=== PATIENT | female | born 1960 | race Caucasian/White ===

== ENCOUNTER 2017-10-30 13:45 | Outpatient (RCR) | payer BC ==
--- NOTE | 2017-10-06 15:16 | PT PLAN OF CARE ---
Physician: Shiela Mchugh NP Patient is being seen: 2x/Week Therapist: Adeline Maria, PT, DPT, CLT Medical Diagnosis: Groin pain, Pelvic and perineal pain, Right-sided piriformis syndrome Treatment Diagnosis: Obturator internus syndrome Date of Onset: 01/19/17 Date of Initial Evaluation: 06/20/17 Date patient was last seen: 10/06/17 Number of treatments: 16 Number of cancellations/No shows: 4 INTERVENTIONS: Manual Therapy/STM/MET Strengthening/condition Ice/Heat Range of Motion Spinal Stabilization Ultrasound Stretching Iontophoresis Neuromuscular Re-ed Closed Chain Program Electrical Stim Posture/Body mechanics Gait Trg/Balance Trg Biofeedback Home Exercise Program Mech./Manual Traction Therapeutic Activities Pelvic Floor GOALS: In 3 weeks pt will be able to perform sit<>stand transfers without onset of pain for improved functional ability to perform ADL's. MET In 6 weeks pt will improve MMT strength to equal that of the contralateral limb without onset of pain for improved ability to perform ADL's. In Progress In 6 weeks pt will have full ROM and be able to perform daily activities and transfers without onset of pain. MET PATIENT'S GOAL: Decrease pain, increase function. Status of Patient's Goals: 2/3 MET 1/3 In Progress Patient Compliance: Moderate Prognosis: Good Reasons for continuing therapy: Pt shows improved hip ROM without any onset of pain, however muscular recruitment and activation remains decreased with frequent substitutions with activation of gluteus medius, and pelvic floor musculature. Pain remains unstable with pt frequently missing visits resulting in delayed treatment. However following each treatment pt reports decreased pain and improved mobility. ROM: B Hip ROM full without pain Strength: LE MMT: Hip: Flexion: L 4+/5, R 4/5 with pain, ext: B 4+/5, add: B 4/ 5 with pain at end range, abd B 4/5, ER: L 5/5, R 3+/5 with pain, IR: B 5/5 Palpation: Pt is tender to palpation of obturator internus, piriformis, and quadratus femoris. If you have any questions or concerns, please feel free to contact me at . Thank you, Adeline Maria PT, DPT, CLT [facility]
[~2017-10-30 13:45] MED LIST: ACAM333T6 PO; DILCD120 PO; ESC10 PO; LOR75 PO; NALT380S4 IM; PER PO
--- NOTE | 2017-11-23 13:45 | PT PLAN OF CARE ---
Physician: Shiela Mchugh NP Patient is being seen: 2x/Week Therapist: Adeline Maria, PT, DPT, CLT Medical Diagnosis: Groin pain, Pelvic and perineal pain, Right-sided piriformis syndrome Treatment Diagnosis: Obturator internus syndrome Date of Onset: 01/19/17 Date of Initial Evaluation: 06/20/17 Date patient was last seen: 10/30/17 Number of treatments: 20 Number of cancellations/No shows: 12 INTERVENTIONS: Manual Therapy/STM/MET Strengthening/condition Ice/Heat Range of Motion Spinal Stabilization Ultrasound Stretching Iontophoresis Neuromuscular Re-ed Closed Chain Program Electrical Stim Posture/Body mechanics Gait Trg/Balance Trg Biofeedback Home Exercise Program Mech./Manual Traction Therapeutic Activities Pelvic Floor GOALS: In 3 weeks pt will be able to perform sit<>stand transfers without onset of pain for improved functional ability to perform ADL's. MET In 6 weeks pt will improve MMT strength to equal that of the contralateral limb without onset of pain for improved ability to perform ADL's. In Progress In 6 weeks pt will have full ROM and be able to perform daily activities and transfers without onset of pain. MET PATIENT'S GOAL: Decrease pain, increase function. Status of Patient's Goals: 2/3 MET 1/3 In Progress Patient Compliance: Poor Prognosis: Good Reasons for discharge from therapy: Ninfa is to discharge from physical therapy at this time secondary to poor pt compliance, poor pt response to PT intervention, and recent PT referral back to physician for imaging and likely specialist intervention. At the time of discharge pt had very slow progress with PT intervention with inconsistently reduced pain. Upon discharge pt had met 2/3 functional goals, while pain levels remained moderate at 5/10 typically. ROM: B Hip ROM full without pain Strength: LE MMT: Hip: Flexion: L 4+/5, R 4/5 with pain, ext: B 4+/5, add: B 4/ 5 with pain at end range, abd B 4/5, ER: L 5/5, R 3+/5 with pain, IR: B 5/5 Palpation: Pt is tender to palpation of obturator internus, piriformis, and quadratus femoris. If you have any questions or concerns, please feel free to contact me at . Thank you, Adeline Maria, PT, DPT, CLT [facility]
[2017-12-21] MEDS ORDERED: MELA1TAB38 PO (11:21)
[2017-12-21] MEDS ORDERED: FLUT16SP19 NS (11:21)
[2017-12-21] MEDS ORDERED: CYAN250T15 PO (11:21)
[2017-12-21] MEDS ORDERED: VENL75CA58 PO (11:21)
[2017-12-21] MEDS ORDERED: ASCO-182 PO (11:21)
[2017-12-21] MEDS ORDERED: ACET-1966 PO (11:21)
[2017-12-21] MEDS ORDERED: BUPR-124 PO (11:21)
[2017-12-21] MEDS ORDERED: GABA-549 PO (11:21)
[2017-12-21] MEDS ORDERED: COLC1TAB5 PO (11:21)
[2017-12-21] MEDS ORDERED: BUSP15TA69 PO (11:21)
[2017-12-21] MEDS ORDERED: FEBU80TA3 PO (11:21)
[2017-12-21] MEDS ORDERED: MULT1CAP59 PO (11:21)
[2017-12-21] MEDS ORDERED: CHOL10005 PO (11:21)
[2017-12-25] MEDS ORDERED: DOCU-416 PO (12:04)
[2017-12-25] MEDS ORDERED: HYDR-4309 PO (12:04)
[2018-01-01] MEDS ORDERED: PHEN200T32 PO (18:08)
[2018-01-01] MEDS ORDERED: SULF-198 PO (18:09)
[2018-01-01] MEDS ORDERED: OXYB10TA21 PO (18:09)
[2018-01-01] MEDS ORDERED: TAMS0.4C25 PO (18:11)
== END 2018-01-03 ==
LOC: PT 13:45
PROVIDERS: ATTEND Nurse Practitioner Family
DX: R10.2 Pelvic and perineal pain (principal); M54.31 Sciatica, right side

== ENCOUNTER → 2017-11-24 | Outpatient (CLI) | payer BC ==
--- NOTE | 2017-11-24 14:43 | RADIOLOGY IMAGING REPORT ---
[place] [facility] [place] Ninfa Escalera : 1960 MR: [id number] V: [id number] EXAM DATE: ORDERING PHYSICIAN: NUNU ANDREW TECHNOLOGIST: Location: [facility] Patient: Ninfa Escalera : 1960 Visit/Account:[id number] Date of Sevice: 11/24/2017 ADDENDUM #1 #1 of the impression pertains to the right hip, not the left hip. Report Dictated By: Grabiel Davis MD at 11/27/2017 2:02 PM Report E-Signed By: Grabiel Davis MD at 11/27/2017 2:03 PM ORIGINAL REPORT MRI right hip without contrast HISTORY: Hip pain COMPARISON: None TECHNIQUE: Multiplanar/multisequence was obtained through the right hip without contrast. CONTRAST: None FINDINGS: Right hip: Joint space: Mild anterior-superior joint space narrowing with thinning of the articular cartilage.. Bone marrow: Mild subchondral cystic change within the anterior acetabulum. Labrum: Mild irregularity of the anterior-superior labral quadrant without paralabral cyst. Effusion: None Other findings: None significant Limited images of the right hip: Joint space: Mild superior joint space narrowing. Bone marrow: Normal Effusion: None Other findings: None significant Bony pelvis: Normal Pubic symphysis and SI joints: Normal Myotendinous structures: Small amount of fluid within the left greater trochanteric bursa. Trace amou nt of fluid within the right greater trochanteric bursa. Chronic appearing bilateral hamstring tendin osis with partial tearing Soft tissues: Normal Intrapelvic and lower abdominal findings: None significant Visualized spine: Normal Other findings: None significant IMPRESSION: 1. Left hip shows mild anterior-superior joint space narrowing with thinning of the articular cartila ge. Degeneration versus nondisplaced tearing of the anterior-superior labral quadrant without paralab ral cyst. Mild subchondral cystic change within the anterior acetabulum. 2. Bilateral greater trochanteric bursitis, left greater than right. 3. Probable chronic bilateral hamstring tendinosis with partial tearing. Report Dictated By: Grabiel Davis MD at 11/24/2017 2:30 PM Report E-Signed By: Grabiel Davis MD at 11/24/2017 2:39 PM WSN:[id number]
== END ==
LOC: MRI 10:26
PROVIDERS: ATTEND Nurse Practitioner Family
DX: M25.851 Other specified joint disorders, right hip (principal); M70.72 Other bursitis of hip, left hip; M70.71 Other bursitis of hip, right hip
CPT/HCPCS: 72195

== ENCOUNTER → 2017-12-20 | Outpatient (CLI) | payer BC ==
[~2017-12-20] MED LIST changes: +ACET-1966 PO; +ASCO-182 PO; +BUPR-124 PO; +BUSP15TA69 PO; +CHOL10005 PO; +COLC1TAB5 PO; +CYAN250T15 PO; +FEBU80TA3 PO; +FLUT16SP19 NS; +GABA-549 PO; +IOPAMIDOL 76% 50 ML INFUS BTL 50 ML ONE; +IOPAMIDOL 76% 75 ML INFUS BTL 75 ML ONE; +MELA1TAB38 PO; +MULT1CAP59 PO; +NS 0.9% 20 ML SDV 60 ML ONE; +VENL75CA58 PO
[2017-12-20 12:33] LABS: PLATELET COUNT, AUTOMATED 190 K/uL (150-450)
--- NOTE | 2017-12-20 16:22 | RADIOLOGY IMAGING REPORT ---
FACILITY: [facility] PATIENT NAME: Ninfa Escalera : 1960 MR: [id number] V: [id number] EXAM DATE: ORDERING PHYSICIAN: TIERNEY HOWELL TECHNOLOGIST: Location: [facility] [place] Patient: Ninfa Escalera : 1960 Visit/Account:[id number] Date of Sevice: 12/20/2017 ABDOMEN/PELVIS W/WO CONTRAST HISTORY: Right hydronephrosis, ureteral obstruction, stones TECHNIQUE: Axial images acquired through the abdomen/pelvis both with and without IV contrast.. Yolis nal and sagittal reformatting also performed. Dose Lowering Technique One of the following dose optimization techniques was utilized in the performance of this exam: Autom ated exposure control; adjustment of the mA and/or kV according to the patient's size; or use of an i terative reconstruction technique. Specific details can be referenced in the facility's radiology C T exam operational policy. CONTRAST: 125 mL Isovue-[id number] COMPARISON: Ultrasound abdomen December 10, 2007 FINDINGS: Visualized lung bases: There is a 3 mm noncalcified subpleural nodule posterior lateral aspect of th e left lower lobe best seen on image 28 of series 6. There is a small amount of scarring versus atel ectasis in the inferior lingula. Hepatobiliary: There is cholelithiasis although no evidence of biliary ductal dilatation. . There is however a tiny calcific density seen at the head of the pancreas which could be within the distal common bile duct or immediately adjacent pancreatic tissue. Spleen: Negative. Adrenals: Negative. Pancreas: There Is a tiny punctate calcification seen in the head the pancreas which could be within the distal common bile duct versus the immediate adjacent pancreatic tissue . Kidneys ureters and bladder: There is a severe right hydronephrosis secondary to a 1.2 x 1.8 x 0.7 cm stone in the proximal right ureter just beyond the right UPJ is mild urothelial enhancement of the p roximal right ureter. No other calculi identified in the right renal collecting system. There is mo derate perinephric stranding on the right. There is also cortical thinning on the right suggesting t his could be a long-standing obstruction. There is a 1 mm punctate nonobstructing calcification upper pole calyx of the left kidney . There are several tiny hypodensities within the left kidney which may represent cysts although are too smal l to characterize. Genitalia: Negative. GI: Negative. Vessels/spaces/nodes: There are minimal vascular calcifications present Bones/soft tissues: There is a gentle S-shaped scoliosis of the thoracolumbar spine. There are mode rate spondylotic changes L5-S1. There is a mild compression fracture of the L1 vertebral body Additional findings: None pertinent. IMPRESSION: There is a severe right hydronephrosis secondary to a 1.2 x 1.8 x 0.7 cm stone in the proximal right ureter just beyond the right UPJ with mild urothelial enhancement of the proximal right ureter sugges ting a possible superimposed urinary tract infection.. Also noted is moderate perinephric stranding on the right There is cortical thinning on the right suggesting this could be of long-standing obstru ction. 1 mm nonobstructing calculus upper pole calyx of the left kidney Mild compression fracture of L1 vertebral body and moderate spondylotic changes L5-S1 Cholelithiasis although no evidence of biliary ductal dilatation. There is a tiny punctate calcifica tion seen at the head of the pancreas which could be within the distal common bile duct or the immedi ately adjacent pancreatic tissue. If patient has signs of biliary obstruction and MRCP may be helpfu l. 3 mm noncalcified nodule lateral aspect the left lower lobe. The Fleischner Society recommendations are as follows For nodules less than 6 mm in a low risk patient (minimal or absent smoking history, n o history of malignancy), no routine followup is recommended. In a high risk patient (smoking or rome gnancy history), optional 12 month followup can be obta sharon. Report Dictated By: Roseline Contreras MD at 12/20/2017 3:28 PM Report E-Signed By: Roseline Contreras MD at 12/20/2017 4:17 PM WSN:[email or web address]
== END ==
LOC: CT 02:31
PROVIDERS: ATTEND Urology
DX: N13.30 Unspecified hydronephrosis (principal); N20.1 Calculus of ureter; N20.0 Calculus of kidney; R91.1 Solitary pulmonary nodule; K80.20 Calculus of gallbladder without cholecystitis without obstruction; K86.89 Other specified diseases of pancreas
CPT/HCPCS: 36415; 74178; 85025; J7050; Q9967; 82040; 82247; 82310; 82374; 82435; 82565; 82947; 84075; 84132; 84155; 84295; 84450; 84460; 84520

== ENCOUNTER → 2017-12-25 | Day surgery (SDC) | payer BC ==
--- NOTE | 2017-12-22 16:36 | HISTORY AND PHYSICAL ---
DATE OF ADMISSION: December 25, 2017 CHIEF COMPLAINT Right ureteral calculi. HISTORY OF PRESENT ILLNESS Patient is a 57-year-old white female with a year history of right hip and lower quadrant pain which has been radiating to her buttocks, who was being evaluated by [facility] for disk disease. An MRI was performed which showed a significant amount of right hydroureteronephrosis down to the ureter with a 15 x 9 mm lesion. When seen in the Urology Clinic on the 19 of December, she was without new complaints. She denied prior kidney stones, flank pain or renal colic or gross hematuria. Her creatinine was 1.2 and her urinalysis was normal. A CT urogram was performed which revealed a 1.8 x 0.8 x 1.1 cm calcification in the right proximal ureter with significant hydroureteronephrosis down to the stone. She had delayed excretion of contrast on her delayed images. The renal cortex on the right side appeared moderately thin compared to the left. The films were shown to the patient and discussed. She is now being brought to the operating room for planned stent placement for decompression of her system, followed by a ureteroscopy and extracorporeal shock wave lithotripsy of her stone. She understands that if I am unable to decompress her system from below she may require percutaneous nephrostomy placement to require decompression. PAST MEDICAL HISTORY * Arthritis. * Gout. * Depression with anxiety. * Chronic low back pain. * History of ethanol abuse. PAST SURGICAL HISTORY * . * Right shoulder and arm surgery, 2006. ALLERGIES No known drug allergies. CURRENT MEDICATIONS * Uloric. * Effexor. * BuSpar. * Wellbutrin. * Gabapentin. * Probenecid with colchicine. * Multivitamins. SOCIAL HISTORY Patient lives in [place], [place] and is . FAMILY HISTORY Patient reports having a daughter with a history of bilateral vesical ureteral reflux status post reimplantation, age 4. REVIEW OF SYSTEMS Patient denies chest pain, shortness of breath, nausea, vomiting, fevers, chills , change in weight or bleeding disorder. PHYSICAL EXAMINATION GENERAL: Patient is a well-developed, well-nourished white female in no acute distress. HEENT: Normocephalic, atraumatic. CHEST: Clear to auscultation bilaterally. CARDIOVASCULAR: Regular rate and rhythm. ABDOMEN: Soft, nontender. No masses are palpated. GENITOURINARY: Exam is deferred to the OR. EXTREMITIES: Exam without clubbing, cyanosis or edema. NEUROLOGIC: Exam is nonfocal. IMPRESSION A 57-year-old white female with a large obstructing right proximal to mid ureteral stone with proximal hydroureteronephrosis. PLAN We will perform anesthetic cystoscopy, right stent placement with possible ureteroscopy and/or extracorporeal shock wave lithotripsy as indicated. CHELSEY
[2017-12-25] VITALS (9 sets, daily range): BP systolic 98–120; BP diastolic 68–82
[~2017-12-25] VITALS: Ht 165.1 cm; Wt 82.1 kg
[~2017-12-25] MED LIST changes: +DEXAMETHASONE SOD 4 MG/ML VIAL ONE; +DOCU-416 PO; +EPINEPHrine HCL 30 MG/30 ML ONE; +FAMOTIDINE 20 MG TAB ONE; +FAMOTIDINE 20 MG/50 ML PREMIX IVPB ONE; +HYDR-4309 PO; -IOPAMIDOL 76% 50 ML INFUS BTL 50 ML ONE; -IOPAMIDOL 76% 75 ML INFUS BTL 75 ML ONE; +IOPAMIDOL-200 50 ML VIAL IS ONE; +LIDOCAINE 2% IV 100 MG/5ML SYR ONE; +LIDOCAINE/SOD BICARB 8.4% SYR ID ONE; +MIDAZOLAM 2 MG/2 ML VIAL IVP PRN; +NORMOSOL R SOLN(*) 1000 ML BAG 1,000 ML IV PRN; -NS 0.9% 20 ML SDV 60 ML ONE; +ONDANSETRON 4 MG/2 ML VIAL ONE; +PROPOFOL EMUL(*) 10MG/ML 20 ML 20 ML ONE; +ceFAZolin 1 GM VIAL IVP ONE; +ceFAZolin(*) 1 GM VIAL 1 GM in NS(*) 0.9% 100 ML ADDVANT BAG 100 ML IVPB ONE; +fentaNYL CITR 100 MCG/2 ML AMP ONE
[2017-12-25 07:58] LABS: INR 0.95
--- NOTE | 2017-12-25 08:18 | RADIOLOGY IMAGING REPORT ---
FACILITY: [facility] PATIENT NAME: Ninfa Escalera : 1960 MR: [id number] V: [id number] EXAM DATE: ORDERING PHYSICIAN: TIERNEY HOWELL TECHNOLOGIST: Location: [facility] [place] Patient: Ninfa Escalera : 1960 Visit/Account:[id number] Date of Sevice: 12/25/2017 Single view of the abdomen Indication: Preop. History of kidney stones. Comparison: CT dated December 20, 2017. Findings: Bowel gas seen throughout the abdomen in a nonobstructive pattern. Large calculus within the distal right renal pelvis/proximal right ureter measuring 2 x 7 cm. No singh tional urolithiasis identified. There are a few punctate phleboliths within the pelvis. In addition. There is a heterogeneous calcification within the left lower quadrant measuring up to 1.1 cm, correla ting to a probable area of mesenteric fat necrosis on CT. Degenerative changes within the lumbar spine. IMPRESSION: 1. Calculus within the distal right renal pelvis/proximal right ureter measuring 2.0 x 0.7 cm. Report Dictated By: Jeremiah Fuchs MD at 12/25/2017 8:12 AM Report E-Signed By: Jeremiah Fuchs MD at 12/25/2017 8:14 AM WSN:[id number]
--- NOTE | 2017-12-25 10:39 | RADIOLOGY IMAGING REPORT ---
FACILITY: [facility] PATIENT NAME: Ninfa Escalera : 1960 MR: [id number] V: [id number] EXAM DATE: ORDERING PHYSICIAN: TIERNEY HOWELL TECHNOLOGIST: Location: [facility] Patient: Ninfa Escalera : 1960 Visit/Account:[id number] Date of Sevice: 12/25/2017 Exam type: RETROGRADE PYELOGRAM History: STONES Comparison: KUB performed earlier in the day. Findings: Numerous intraoperative C-arm spot views over the abdomen and pelvis were submitted. Again noted is the oblong calcification measuring 2 x 7 cm in the proximal right ureter. Numerous images demonstrat e placement of a ureteroscope and contrast within the right ureter and proximal right renal pelvis. The proximal right ureteral calculus is outlined by the contrast although did not change position. O n the final images there is a tiny linear wisp of contrast that projects just lateral to the proximal right ureter at the level of the calculus which may represent contrast within a periureteral vessel or small amount contrast tracking through the wall of the right ureter. Free extravasation appears l ess likely.. The total fluoroscopy time was 2.25 minutes. The fluoroscopy dose was 106.52 mGray IMPRESSION: 1. As above Report Dictated By: Roseline Contreras MD at 12/25/2017 10:23 AM Report E-Signed By: Roseline Contreras MD at 12/25/2017 10:34 AM WSN:[id number]
--- NOTE | 2017-12-26 17:42 | OPERATIVE REPORT 1 ---
EVENT DATE: December 25, 2017 SURGEON: Kenneth Carver MD ANESTHESIOLOGIST: Jorge Guerra MD ANESTHESIA: General anesthetic. PREOPERATIVE DIAGNOSES 1. Right proximal ureteral 1.8 x 1.2 x 0.7 cm ureteral calculus. 2. Right severe hydronephrosis with cortical thinning. POSTOPERATIVE DIAGNOSES 1. Impacted 1.8 x 1.2 x 0.7 cm right proximal ureteral stone. 2. Severe right hydronephrosis with cortical scarring. PROCEDURES PERFORMED 1. Cystoscopy. 2. Right retrograde pyelogram. 3. Attempted right double-J ureteral stent placement. ESTIMATED BLOOD LOSS Minimal. INTRAVENOUS FLUIDS Crystalloid. DRAINS None. COMPLICATIONS None. CONDITION The patient was taken to the recovery room awake and in stable condition. STATEMENT OF MEDICAL NECESSITY The patient is a 57-year-old white female who was incidentally found to have a proximal large ureteral stone with hydronephrosis. This was originally found on a MRI performed for low back pain. Followup CT scan revealed this to be a 1.8 x 1.2 x 0.7 cm stone in the right proximal/mid ureteral junction. Above this, she had significant hydroureteronephrosis with tortuosity of the ureter. She was also noted to have significant cortical thinning on the right side consistent with longstanding obstruction. These findings were discussed with the patient, and options were discussed including percutaneous nephrolithotomy versus ureteral stent placement with possible ureteroscopy and/or ESWL. She is now being brought to the operating room for planned stent placement followed by ureteroscopy and/or ESWL. DESCRIPTION OF PROCEDURE PERFORMED The patient was taken to the operating room. After general anesthetic was obtained, she was placed in the dorsal lithotomy position and prepped and draped in the usual sterile manner. Anesthetic cystoscopy was performed using the 21-Turkmen rigid sheath and 30-degree lens. She had a normal-appearing urethra. There is no evidence of stricture or other lesions. Her bladder mucosa was normal. She had slit-like ureteral orifices, both effluxing clear urine. The right ureteral orifice was cannulated with a 6-Turkmen opening access catheter and then was advanced up to the mid ureter. A retrograde pyelogram was performed. She was noted to have some moderate tortuosity of this area of the ureter with J hooking out laterally to the stone and then up to the dilated portion of the system. Contrast did pass by the stone without other anomalies. A 0.035 Glidewire was advanced into the lumen of the access catheter, and this wire was advanced up to the level of the stone and attempted to be passed by the stone. This was unsuccessful after several attempts. The access catheter was repositioned several times, and still I was unsuccessful to negotiate past this stone. At this point, an angle-tipped Glidewire was also used, but was also unsuccessful after several minutes. The wire just kept curling back on itself down the distal ureter. I considered the option of performing a ureteroscopy with direct visualization of this area with a possible stone ablation with a laser. We felt given the extremely large size of this stone that the risk of poor visualization and ureteral injury would be significant and felt the best course of action would be to place an access from above for upper tract decompression and possible internalization from an upper access. Therefore, at this point, the access catheter and wire were removed. The patient's bladder was drained through the sheath of the cystoscope. She was awakened in the operating room and taken to the recovery area in stable condition. PLAN The patient was reevaluated two and a half hours post recovery. She denied any abdominal or flank pain, her vital signs were stable, and she had good urine output. At this point, I felt that the patient could probably delay percutaneous nephrostomy placement until the following morning given the longstanding obstruction from this impacted stone, her condition clinically, as well as the low likelihood of a ureteral injury during the procedure. Therefore , the patient is being discharged home on [place] and [place]. I have scheduled her to undergo a right percutaneous nephrostomy tube placement with attempted internalization of tomorrow morning at [facility]. She is to show up at the Radiology Department at 9:30 in the morning and be n.p.o. eight hours before. This has been relayed to both the patient and her family, and they voice understanding. She has also been given warnings to return to the Emergency Room if she has nausea, vomiting, fever, chills, or increasing flank pain. Following percutaneous nephrostomy tube placement and/or internalization, we will have her return to the operating room in one weeks for definitive stone treatment. CHELSEY
== END ==
LOC: OR 00:12
PROVIDERS: ATTEND Urology
DX: N20.1 Calculus of ureter (principal); N13.30 Unspecified hydronephrosis; E66.9 Obesity, unspecified; F17.200 Nicotine dependence, unspecified, uncomplicated; G89.4 Chronic pain syndrome; M10.9 Gout, unspecified; Z79.899 Other long term (current) drug therapy; M19.90 Unspecified osteoarthritis, unspecified site
CPT/HCPCS: 36415; 52005; 52332; 74018; 74420; 85610; C1769; C1894; J0171; J0690; J1100; J2001; J2405; J2704; J3010; Q9966

== ENCOUNTER → 2017-12-30 | Outpatient (CLI) | payer BC ==
[~2017-12-30] MED LIST changes: -DEXAMETHASONE SOD 4 MG/ML VIAL ONE; -EPINEPHrine HCL 30 MG/30 ML ONE; -FAMOTIDINE 20 MG TAB ONE; -FAMOTIDINE 20 MG/50 ML PREMIX IVPB ONE; -IOPAMIDOL-200 50 ML VIAL IS ONE; -LIDOCAINE 2% IV 100 MG/5ML SYR ONE; -LIDOCAINE/SOD BICARB 8.4% SYR ID ONE; -MIDAZOLAM 2 MG/2 ML VIAL IVP PRN; -NORMOSOL R SOLN(*) 1000 ML BAG 1,000 ML IV PRN; -ONDANSETRON 4 MG/2 ML VIAL ONE; +OXYB10TA21 PO; +PHEN200T32 PO; -PROPOFOL EMUL(*) 10MG/ML 20 ML 20 ML ONE; +SULF-198 PO; +TAMS0.4C25 PO; -ceFAZolin 1 GM VIAL IVP ONE; -ceFAZolin(*) 1 GM VIAL 1 GM in NS(*) 0.9% 100 ML ADDVANT BAG 100 ML IVPB ONE; -fentaNYL CITR 100 MCG/2 ML AMP ONE
== END ==
LOC: LAB 12:26
PROVIDERS: ATTEND Urology
DX: Z02.9 Encounter for administrative examinations, unspecified (principal)

== ENCOUNTER 2018-01-01 00:54 | Day surgery (SDC) | payer BC ==
--- NOTE | 2017-12-29 16:32 | HISTORY AND PHYSICAL ---
DATE OF ADMISSION: January 01, 2018 CHIEF COMPLAINT Right impacted ureteral stone. HISTORY OF PRESENT ILLNESS The patient is a 56-year-old white female who was found to have a right mid ureteral stone measuring 15 x 9 mm which was found incidentally for low back pain. On her CT scan, she was noted to have thinning of the right renal cortex with hydronephrosis down to the stone. She was subsequently taken to the operating room on December 25; however, I was unable to place a stent from below at that time. I was able to get contrast to go around the stone up into the renal pelvis. She was subsequently sent to [facility] on the for a right percutaneous nephrostomy tube which was placed. The interventional radiologist was unable to pass a wire past the stone down more distally; however, again, contrast was noted to bypass the stone down the distal ureter. The patient is now being brought back to the operating room for definitive stone treatment with ureteroscopy and/or ESWL with attempted stent placement and removal of her percutaneous nephrostomy tube. If we are unable to place a stent at this time, we will continue her percutaneous nephrostomy tube for the time being. PAST MEDICAL HISTORY 1. Gout. 2. Arthritis. 3. Depression and anxiety. 4. Chronic low back pain. 5. History of ethanol abuse. PAST SURGICAL HISTORY 1. . 2. Right shoulder and arm surgery in 2006. 3. As per HPI. ALLERGIES No known drug allergies. CURRENT MEDICINES 1. Effexor. 2. BuSpar. 3. Wellbutrin. 4. Uloric. 5. Gabapentin. 6. Probenecid with colchicine. 7. Multivitamins. SOCIAL HISTORY The patient is . She lives in [place], [place]. FAMILY HISTORY Significant for daughter with pyelo or vesicoureteral reflux. REVIEW OF SYSTEMS The patient denies chest pain, shortness of breath, nausea, vomiting, fever, chills, productive cough, bleeding disorder, change in weight, or chronic headaches. PHYSICAL EXAMINATION GENERAL: The patient is well-developed, well-nourished, white female in no acute distress. HEENT: Normocephalic, atraumatic. CHEST: Clear to auscultation bilaterally. CARDIOVASCULAR: Regular rate and rhythm. ABDOMEN: Soft and nontender. She has a right percutaneous nephrostomy tube in place with dressing intact, clean and dry with clear urine. GENITOURINARY: Deferred to the OR. EXTREMITIES: Without clubbing, cyanosis, or edema. NEUROLOGIC: Nonfocal. IMPRESSION A 57-year-old white female with an impacted right mid ureteral stone, status post percutaneous nephrostomy tube placement. PLAN We will perform right ureteral stone treatment with ESWL and/or ureteroscopy with attempted right ureteral internal stent. If stent is successful, we will plan to remove her percutaneous nephrostomy tube. LENNYD
[2017-12-30 12:48] LABS: PLATELET COUNT, AUTOMATED 203 K/uL (150-450)
[~2018-01-01] VITALS: Ht 165.1 cm; Wt 83.0 kg
[~2018-01-01 00:54] MED LIST changes: -OXYB10TA21 PO; -PHEN200T32 PO; -SULF-198 PO; -TAMS0.4C25 PO
[2018-01-01 13:00] VITALS: BP 111/70
[2018-01-01] MEDS ORDERED: FAMOTIDINE 20 MG TAB PO ONE (13:45)
[2018-01-01] MEDS ORDERED: LIDOCAINE/SOD BICARB 8.4% SYR ID ONE (13:45)
[2018-01-01] MEDS ORDERED: ceFAZolin(*) 1 GM VIAL 1 GM in NS(*) 0.9% 100 ML ADDVANT BAG 100 ML IVPB ONE (13:45)
[2018-01-01] MEDS ORDERED: MIDAZOLAM 2 MG/2 ML VIAL IVP PRN (13:45)
[2018-01-01] MEDS ORDERED: NORMOSOL R SOLN(*) 1000 ML BAG 1,000 ML IV PRN (13:45)
[2018-01-01] MEDS ORDERED: LIDOCAINE 2% IV 100 MG/5ML SYR ONE (14:14)
[2018-01-01] MEDS ORDERED: fentaNYL CITR 100 MCG/2 ML AMP ONE ×3 (14:14→17:40)
[2018-01-01] MEDS ORDERED: PROPOFOL EMUL(*) 10MG/ML 20 ML 20 ML ONE (14:15)
--- NOTE | 2018-01-01 14:16 | RADIOLOGY IMAGING REPORT ---
[place]AC[place] [facility] [place] NAME: Ninfa Escalera : 1960 MR: [id number] V: [id number] EXAM DATE: ORDERING PHYSICIAN: TIERNEY HOWELL TECHNOLOGIST: [place] [facility] [place] Patient: Ninfa Escalera : 1960 Visit/Account:[id number] Date of Sevice: 01/01/2018 ABDOMEN PELVIS ESWL CYSTO W/O HISTORY: kidney stone TECHNIQUE: Axial images were obtained through the abdomen and pelvis without intravenous contrast . One of the following dose optimization techniques was utilized in the performance of this exam: autom ated exposure control; adjustment of the mA and/or kv according to patient size; or use of iterative reconstruction technique. Specific details can be referenced in the facility's radiology CT exam oper ational policy. CONTRAST: None COMPARISON: CT abdomen/pelvis 12/20/2017 FINDINGS: Visualized lung bases: Platelike atelectasis within the right lung base. Hepatobiliary: Gallstones. Spleen: Negative. Adrenals: Negative. Pancreas: Tiny calcification within the pancreatic head. No acute peripancreatic inflammatory torres e. Kidneys/ureters/bladder: Interval placement of a right percutaneous nephrostomy tube. Prior hydrone phrosis has decreased with minimal hydronephrosis remaining. New moderate right perinephric strandin g without fluid collection.. Stable 19 x 9 x 8 mm proximal right ureteral calculus. No left renal o r left ureteral calculus. No left hydronephrosis. No bladder calculus. Bowel/peritoneum/mesentery: Negative. Vessels: Negative. Lymph nodes: Negative. Pelvic genitourinary: Negative. Bones/body wall: Moderate facet arthropathy within the lower lumbar spine with 3 mm of anterolisthes is at L5-S1. Stable mild anterior compression deformity at L1. Other findings: None significant IMPRESSION: 1. Interval placement of a right percutaneous nephrostomy tube. Minimal remaining right hydronephro sis. Stable 19 x 9 x 8 mm proximal right ureteral calculus. New moderate right perinephric strandin g. Report Dictated By: Grabiel Davis MD at 01/01/2018 1:59 PM Report E-Signed By: Grabiel Davis MD at 01/01/2018 2:11 PM WSN:[email or web address]
[2018-01-01] MEDS ORDERED: DEXAMETHASONE SOD 4 MG/ML VIAL ONE (15:52)
[2018-01-01] MEDS ORDERED: EPINEPHrine HCL 30 MG/30 ML ONE (16:00)
[2018-01-01] MEDS ORDERED: NEOMYCIN/POLYMYX/BACITR 30 GM TP ONE (16:10)
[2018-01-01] MEDS ORDERED: ONDANSETRON 4 MG/2 ML VIAL ONE (16:22)
[2018-01-01] MEDS ORDERED: IOPAMIDOL-200 50 ML VIAL IS ONE (16:43)
[2018-01-01] MEDS ORDERED: BELLADONNA ALK/OPIUM 60MG SUPP PR ONE (17:02)
[2018-01-01] MEDS ORDERED: PHEN200T32 PO (18:08)
[2018-01-01] MEDS ORDERED: OXYB10TA21 PO (18:09)
[2018-01-01] MEDS ORDERED: SULF-198 PO (18:09)
[2018-01-01] MEDS ORDERED: APAP/HYDROCODONE 325/5 TAB ONE ×2 (18:11→18:13)
[2018-01-01] MEDS ORDERED: TAMS0.4C25 PO (18:11)
--- NOTE | 2018-01-01 21:01 | RADIOLOGY IMAGING REPORT ---
FACILITY: [facility] [place] PATIENT NAME: Ninfa Escalera : 1960 MR: [id number] V: [id number] EXAM DATE: ORDERING PHYSICIAN: TIERNEY HOWELL TECHNOLOGIST: Location: [facility] [place] Patient: Ninfa Escalera : 1960 Visit/Account:[id number] Date of Sevice: 01/01/2018 OR fluoroscopy films: Abdomen History: Hematuria, obstructing right renal stone. Comparison: 12/25/2017 Findings: Fluoroscopy and imaging was provided for Dr. Howell. 2.25 minutes of fluoroscopy time was u tilized for a a K of 106.5 to mGy. Multiple images of the abdomen are archived to PACS which demonstr ate right retrograde in progress. Large right proximal ureteral stone is visualized. Right nephrostom y catheter is in place. With injection of contrast, there is reflux around the stone. Final images de monstrate placement of a nephroureteral stent.. IMPRESSION: Fluoroscopy and imaging provided for Dr. Howell please see his report for details. Report Dictated By: Ambreen Gomez MD at 01/01/2018 8:55 PM Report E-Signed By: Ambreen Gomez MD at 01/01/2018 8:57 PM WSN:[id number]
--- NOTE | 2018-01-02 17:26 | OPERATIVE REPORT 1 ---
EVENT DATE: January 01, 2018 SURGEON: Kenneth Carver MD ANESTHESIOLOGIST: Husam Guerra MD ANESTHESIA: General anesthetic. PREOPERATIVE DIAGNOSIS Right mid-ureteral impacted stone with indwelling percutaneous nephrostomy tube on right. POSTOPERATIVE DIAGNOSIS Right mid-ureteral impacted stone with indwelling percutaneous nephrostomy tube on right. PROCEDURE PERFORMED 1. Right mid ureteral extracorporeal shock wave lithotripsy. 2. Cystoscopy with right retrograde pyelogram. 3. Right internal double-J ureteral stent placement. 4. Removal of right percutaneous nephrostomy tube. ESTIMATED BLOOD LOSS Minimal. INTRAVENOUS FLUIDS Crystalloid. DRAINS 4.8-South Sudanese x 26 cm Percuflex Plus stent on right. COMPLICATIONS None. CONDITION The patient was taken to the recovery room awake and in stable condition. STATEMENT OF MEDICAL NECESSITY The patient is a 57-year-old white female who was found to have an impacted mid right ureteral stone with proximal hydronephrosis and thinning of the cortex. Last week, she was taken to the operating room, and I was unsuccessful at placing a stent from below. The following day, she had a percutaneous nephrostomy tube placed at [facility]. They were unable to internalize the stent. She is now being brought to the operating room for planned fragmentation of right ureteral stone with stent placement, followed by removal of percutaneous nephrostomy tube as indicated. DESCRIPTION OF PROCEDURE PERFORMED The patient was brought to the operating room. She was placed supine on the lithotripsy table. Her large right mid ureteral calculus was placed in the lithotripsy crosshairs in two planes. Treatment was begun in the most superior aspect at a power setting of 3 for the first 300 shocks. Then, a three-minute pause was performed, and treatment was resumed. Power was gradually increased to a power setting of 9 over the course of the first 1500 shocks. She was received a total of 3500 shocks to this right mid ureteral stone. Intermittently throughout the treatment, two-plane fluoroscopy was used to ensure the crosshairs remained on the stone and stone fragment pile. After approximately 2500 shocks, fragmentation was noted with spreading out of the stone in the ureter. At the conclusion of treatment, no significant remaining stone fragments could be identified. At this point, she was transferred to the cystoscopy suite where she was prepped and draped in the dorsal lithotomy position. Anesthetic cystoscopy was performed. She had a normal-appearing bladder. There was a small amount of blood emanating from the right ureteral orifice with a small amount of stone fragments. The ureteral orifice was cannulated with a 6-South Sudanese opening access catheter. The access catheter was advanced up to the mid ureter, and a right retrograde pyelogram was performed under fluoroscopic imaging. By my intraoperative interpretation, this x-ray showed the stone to be in its previous location; however, much more contrast passed past the stone into the renal pelvis and then out the percutaneous nephrostomy tube stent. There was no evidence of extravasation or leakage on the x-ray. Following this, a 0.035 Glidewire was advanced up the lumen of the access catheter under fluoroscopic imaging. It was advanced past the stone up into the renal pelvis. After several minutes of manipulation, I could not advance the 6-South Sudanese access catheter past the fragmented stone burden. I was able to advance approximately mid way, but there was still a significant S-shape deformity of the ureter from its redundancy. At this point, the Glidewire was removed, and a Super Stiff wire was next used. Under fluoroscopic imaging, this was passed up the access catheter where it was advanced to the renal pelvis. A significant amount of resistance was encountered when advancing the stent up over the guidewire. It was felt that a 6-South Sudanese would be likely too big to easily be placed at this point. Therefore, leaving the Super Stiff wire in place, the 6-South Sudanese access catheter was removed, and a 4.8-South Sudanese x 26 cm Percuflex Plus Microvasive stent was advanced up over the wire under fluoroscopic imaging. There was a moderate amount of resistance at the stone, but it advanced up without undue difficulty. The wire was removed, and she was noted to have coiling in the renal pelvis and good curling in the bladder by direct vision. The patient's bladder was drained through the cystoscopic sheath. A B and O suppository was given per rectum at the conclusion of the case. She was transferred from the cystoscopic table to a recovery table. Her right side was rolled up. The sterile dressing on the percutaneous nephrostomy tube was removed. The string was released and the percutaneous nephrostomy tube removed intact. Another sterile dressing was applied in its place. She was then awakened in the operating room and taken to the recovery area in stable condition. PLAN The plan will be to allow her to be discharged home today on Flomax, Colace, Limestone, Ditropan XL, and Pyridium. We will plan to have her return to the OR in two to four weeks for followup ureteroscopy, ESWL, and stent removal and/or replacement as indicated. CHELSEY
== END 2018-01-01 19:15 | disposition home or self-care (01) ==
LOC: OR 00:54
PROVIDERS: ATTEND Urology
DX: N20.1 Calculus of ureter (principal)
CPT/HCPCS: 36415; 50590; 52332; 74176; 74420; 81001; 85025; 87088; C1769; J0171; J0690; J1100; J2001; J2405; J2704; J3010; J7050; Q9966; 82310; 82374; 82435; 82565; 82947; 84132; 84295; 84520

== ENCOUNTER 2018-01-15 00:37 | Day surgery (SDC) | payer BC ==
--- NOTE | 2018-01-12 13:57 | HISTORY AND PHYSICAL ---
DATE OF ADMISSION: January 15, 2018 CHIEF COMPLAINT Right ureteral calculi with indwelling ureteral stent. HISTORY OF PRESENT ILLNESS The patient is a 57-year-old white female who was found to have a large impacted mid ureteral stone, which required a percutaneous nephrostomy tube placement. She was subsequently taken back to the operating room on December, at which time she underwent right mid ureteral extracorporeal shockwave lithotripsy with placement of a right internal double J ureteral stent. I was unable to place a 6 Gabonese stent, but was able to negotiate a 4.8 Gabonese stent past the stone fragment pile. Her nephrostomy tube was removed at the conclusion of the case. She is now being brought back to the operating room for planned followup extracorporeal shockwave lithotripsy, ureteroscopy, stent removal and/or exchange. PAST MEDICAL HISTORY * Gout. * Arthritis. * Chronic low back pain. * Depression. * History of ethanol abuse. PAST SURGICAL HISTORY * C section. * Right shoulder and arm surgery. * Right attempted stent placement on right on December 25, 2017. * Right mid extracorporeal shockwave lithotripsy with stent placement on right January 01. ALLERGIES No known drug allergies. CURRENT MEDICATIONS * Effexor. * BuSpar. * Wellbutrin. * Uloric. * Gabapentin. * Probenecid with colchicine. * Multivitamins. * Flomax. * Colace. * Counselor. * Ditropan XL. * Pyridium. SOCIAL HISTORY Patent lives in [place], [place]. She is . FAMILY HISTORY Significant for a daughter with vesicoureteral reflux. REVIEW OF SYSTEMS Patient denies productive cough, chest pain, shortness of breath, nausea, vomiting, fever, chills, bleeding disorder, chronic headaches or liver disease. PHYSICAL EXAMINATION GENERAL: Patient is a well-developed, well-nourished white female in no acute distress. HEENT: Normocephalic, atraumatic. CHEST: Clear to auscultation bilaterally. CARDIOVASCULAR EXAM: Regular rate and rhythm. ABDOMINAL EXAM: Soft, nontender, no masses are palpated. EXAM: Deferred to the OR. EXTREMITY EXAM: Without clubbing, cyanosis or edema. NEUROLOGICAL EXAM: Nonfocal. IMPRESSION This is a 57-year-old white female with history of impacted right mid ureteral calculus measuring 15 x 9 mm status post right ESWL with indwelling ureteral stent. PLAN We will perform followup ureteroscopy, extracorporeal shockwave lithotripsy and/ or stent removal and/or replacement. [facility]
[~2018-01-15] VITALS: Ht 165.1 cm; Wt 83.0 kg
[~2018-01-15 00:37] MED LIST changes: +OXYB10TA21 PO; +PHEN200T32 PO; +SULF-198 PO; +TAMS0.4C25 PO
[2018-01-15 12:45] VITALS: BP 128/83
[2018-01-15 12:55] LABS: INR 0.95
[2018-01-15] MEDS ORDERED: LIDOCAINE/SOD BICARB 8.4% SYR ID ONE (13:30)
[2018-01-15] MEDS ORDERED: ceFAZolin(*) 1 GM VIAL 1 GM in NS(*) 0.9% 100 ML ADDVANT BAG 100 ML IV ONE (13:30)
[2018-01-15] MEDS ORDERED: FAMOTIDINE 20 MG TAB PO ONE (13:30)
[2018-01-15] MEDS ORDERED: NORMOSOL R SOLN(*) 1000 ML BAG 1,000 ML IV PRN (13:30)
[2018-01-15] MEDS ORDERED: MIDAZOLAM 2 MG/2 ML VIAL IVP ONE (13:30)
--- NOTE | 2018-01-15 14:30 | RADIOLOGY IMAGING REPORT ---
FACILITY: [facility] PATIENT NAME: Ninfa Escalera : 1960 MR: [id number] V: [id number] EXAM DATE: ORDERING PHYSICIAN: TIERNEY HOWELL TECHNOLOGIST: Location: [facility] - [place], [place] Patient: Ninfa Escalera : 1960 Visit/Account:[id number] Date of Sevice: 01/15/2018 Exam type: KUB SINGLE VIEW ABDOMEN History: preop order- stone location Comparison: Retrograde pyelogram 01/29/2018. Findings: There is a right ureteral stent in place. There is ovoid calcification projecting over the proximal aspect of the right ureteral stent projects just lateral to the right transverse process of L3. Andrea l gas pattern is nonspecific. There are moderate spondylotic changes lumbar spine IMPRESSION: 1. Right ureteral stent is in place Ovoid calcification projects over the proximal aspect of the right ureteral stent presumably the prox imal right ureteral calculus as seen on prior studies Report Dictated By: Roseline Contreras MD at 01/15/2018 2:22 PM Report E-Signed By: Roseline Contreras MD at 01/15/2018 2:25 PM WSN:[email or web address]
[2018-01-15] MEDS ORDERED: IOPAMIDOL-200 50 ML VIAL IS ONE (15:09)
[2018-01-15 15:39] VITALS: BP 153/79
[2018-01-15] MEDS ORDERED: PROPOFOL EMUL(*) 10MG/ML 20 ML 20 ML ONE (15:56)
[2018-01-15] MEDS ORDERED: ONDANSETRON 4 MG/2 ML VIAL ONE (15:56)
[2018-01-15] MEDS ORDERED: LIDOCAINE MPF 1% 5 ML VIAL ONE (15:56)
[2018-01-15] MEDS ORDERED: DEXAMETHASONE SOD PHOS 10MG/ML ONE (15:56)
[2018-01-15] MEDS ORDERED: fentaNYL CITR 100 MCG/2 ML AMP ONE (15:57)
[2018-01-15] MEDS ORDERED: LIDOCAINE 2% JELLY 5 ML TUBE ONE (15:59)
[2018-01-15] MEDS ORDERED: GLYCOPYRROLATE 0.2 MG/ML SDV ONE (16:17)
[2018-01-15] MEDS ORDERED: PHENYLEPHRINE/NS/PF 0.4MG/10ML ONE (16:19)
[2018-01-15] MEDS ORDERED: NS 0.9% 3000 ML IRRIGATION BAG IR ONE (17:52)
[2018-01-15] MEDS ORDERED: BELLADONNA ALK/OPIUM 60MG SUPP PR ONE (18:02)
[2018-01-15] MEDS ORDERED: OXYC-373 PO (18:46)
[2018-01-15] MEDS ORDERED: oxyCODONE/ACETAMIN 5/325MG TH 2 TAB/BOTTLE ONE (18:54)
[2018-01-15] MEDS ORDERED: oxyCODONE/ACETAMIN 5/325MG TH 2 TAB/BOTTLE PO ONE (19:05)
--- NOTE | 2018-01-16 01:34 | RADIOLOGY IMAGING REPORT ---
FACILITY: [facility] [place]IENT NAME: Ninfa Escalera : 1960 MR: [id number] V: [id number] EXAM DATE: ORDERING PHYSICIAN: TIERNEY HOWELL TECHNOLOGIST: Location: [facility] Patient: Ninfa Escalera : 1960 Visit/Account:[id number] Date of Sevice: 01/15/2018 EXAMINATION: OR fluoroscopy films abdomen HISTORY: Hematuria, ureteroscopy. COMPARISON: CT abdomen and pelvis from 01/01/2018. FLUOROSCOPY TIME: 1:45 minutes. DOSE: Cumulative dose (Ka,r) was 79.58 mGy. FINDINGS: Multiple fluoroscopic images of the abdomen are obtained intraoperatively. The images are not labeled left or right. There is a ureteral stent which appears well positioned, presumed to be on the right. There is removal of the stent and placement of a wire into the ureter and renal pelvis. IMPRESSION: Ureteral stent removal and ureteroscopy in progress. Please see the performing physician's notes for full details. Report Dictated By: Soni Cartagena MD at 01/16/2018 1:30 AM Report E-Signed By: Soni Cartagena MD at 01/16/2018 1:32 AM WSN:[id number]
--- NOTE | 2018-01-16 13:54 | OPERATIVE REPORT 1 ---
EVENT DATE: January 15, 2018 SURGEON: Kenneth Carver MD ANESTHESIOLOGIST: Fady Puentes MD ANESTHESIA: General. PREOPERATIVE DIAGNOSIS Right indwelling ureteral stent with multiple ureteral calculi. POSTOPERATIVE DIAGNOSIS Right indwelling ureteral stent with multiple ureteral calculi. PROCEDURE PERFORMED 1. Anesthetic cystoscopy. 2. Grasping and removal of right double J stent. 3. Right semirigid ureteroscopy over ureteral access sheath with laser fragmentation of larger stone fragments and grasping and removal of multiple stone fragments greater than 50 in number. 4. Right double J ureteral stent placement. ESTIMATED BLOOD LOSS Minimal. IV FLUIDS Crystalloid. DRAINS 6 Eritrean x 26 cm Contour stent on right. PATHOLOGY Stone fragments for permanent analysis. COMPLICATIONS None. CONDITION Patient taken to recovery room awake and in stable condition. STATEMENT OF MEDICAL NECESSITY Patient is a 57-year-old white female who was found to have an impacted right mid ureteral stone, which initially required a percutaneous nephrostomy tube for decompression followed by extracorporeal shockwave lithotripsy approximately two weeks ago with placement of a 4.8 Eritrean stent. Followup KUB today revealed significant fragmentation of her stones. She had approximately half the stone burden at the original location at L3 with several stone fragments along the stent down to the distal ureter. She is now being brought to the operating room for planned ureteroscopy, stone manipulation and possible extracorporeal shockwave lithotripsy. DESCRIPTION OF OPERATION PERFORMED Patient was brought to the operating room. After general anesthetic was obtained, she was placed in the dorsal lithotomy position and prepped and draped in usual sterile manner. Anesthetic cystoscopy was performed with the 21 -Eritrean Pena sheath and 30 degree lens. She had a normal-appearing urethra and bladder mucosa. The stent was seen emanating from the right ureteral orifice distally and was grasped and brought out through the meatus. A 0.035 sensor wire was advanced in the lumen of the stent up to the upper pole calyx. The stent was removed intact. This wire was used to place an 8/10 dilating system, and a second wire was placed alongside the first wire inside the 10 sheath, and one wire secured to the drapes as a safety wire, and the next wire was used to place an 11/13 navigator ureteral access sheath of 28 cm. First the 11 obturator was advanced over the wire with minimal resistance. This was then removed, and the obturator was placed inside the 13 sheath. There was a mild amount of resistance, which required some twisting at the ureteral orifice to advance the sheath up to the proximal ureter. At this point, the obturator was removed, and semi-rigid ureteroscopy was performed using the Pena scope. At the level of the impacted stone, there was a large amount of yellowish stone fragments, which appeared to be laminar in nature. There still appeared to be a significant amount of edema and swelling at this area in the ureter with several stones still adherent to the ureteral mucosa. The triceps grasping forceps was used to gently manipulate these stones off the urothelium and grasp and remove these out the ureteral access sheath. Approximately 20 of these stones ranging from 2 to 3 mm in size were removed. There were two larger fragments which required fragmentation with the laser. The holmium laser fiber was introduced, and under direct vision in situ laser lithotripsy of these larger fragments were performed to break them into smaller fragments of approximately 2 mm in size. These approximately 10 fragments were then removed. The ureteroscope was then advanced up to the level of the UPJ. No further stones could be noted at this point. Slow pull out advancement of the access sheath and ureteroscope revealed several more fragments along the ureter , which were all sequentially engaged, grasped and removed. Just at the level of the iliac vessels, another cluster of several stone fragments were encountered with two to three larger stone fragments measuring approximately 4 mm. These were again fragmented with in situ laser lithotripsy using the holmium laser fiber. After these larger fragments were fragmented again, the smaller fragments were engaged in the triceps grasping forceps and removed. At this level there were approximately 30 or more smaller fragments which were removed. Again, the ureteroscope and sheath were advanced down the ureter. Several smaller stones were encountered, and these were sequentially removed as well. This was done all the way out to the ureteral orifice. The scope was then advanced in the ureter and no significant fragments could be identified along the course of the ureter. The ureter appeared without evidence of injury except at the previous area of impaction, which was still densely edematous, but there appeared to be no perforation or true injury. The scope was advanced out, and the ureteral access sheath was removed. At this point, the safety wire was back loaded into the cystoscope, and this was used to place a 6 Eritrean x 26 cm Contour stent. Good curling was noted in the renal pelvis by fluoroscopy, and good curling was noted in the bladder by direct vision. The patients bladder was drained through the cystoscopic sheath. A B and O suppository was given per rectally at the conclusion of the case. She was awakened in the operating room and taken to the recovery area in stable condition. The plan will be to allow the patient to be discharged home today on her previous medications for stent discomfort. Will plan to see her in the urology clinic in approximately 2-4 weeks with a followup x-ray to evaluate treatment results and discuss in office removal of the stent versus return to the operating room for followup ureteroscopy and removal of stent at that time. CHELSEY
== END 2018-01-15 20:00 | disposition home or self-care (01) ==
LOC: OR 00:37
PROVIDERS: ATTEND Urology
DX: N20.1 Calculus of ureter (principal); Z72.0 Tobacco use; M10.9 Gout, unspecified; F32.9 Major depressive disorder, single episode, unspecified; G89.29 Other chronic pain
CPT/HCPCS: 36415; 52356; 74018; 76000; 82365; 84703; 85610; 88300; J0690; J1100; J2001; J2370; J2405; J2704; J3010; J3490; J7050; Q9966

== ENCOUNTER → 2018-01-30 | Outpatient (CLI) | payer BC ==
[~2018-01-30] MED LIST changes: +OXYC-373 PO
[2018-01-30 08:30] LABS: PLATELET COUNT, AUTOMATED 183 K/uL (150-450)
== END ==
LOC: LAB 08:16
PROVIDERS: ATTEND Nurse Practitioner Family
DX: R74.8 Abnormal levels of other serum enzymes (principal); D52.0 Dietary folate deficiency anemia; R53.83 Other fatigue; E78.00 Pure hypercholesterolemia, unspecified; Z13.29 Encounter for screening for other suspected endocrine disorder; Z87.442 Personal history of urinary calculi
CPT/HCPCS: 36415; 82040; 82247; 82310; 82374; 82435; 82565; 82947; 84075; 84132; 84155; 84295; 84443; 84450; 84460; 84520; 84550; 85025

== ENCOUNTER → 2018-02-07 | Outpatient (CLI) | payer BC ==
--- NOTE | 2018-02-07 14:29 | RADIOLOGY IMAGING REPORT ---
FACILITY: [facility] [place] PATIENT NAME: Ninfa Escalera : 1960 MR: [id number] V: [id number] EXAM DATE: ORDERING PHYSICIAN: TIERNEY HOWELL TECHNOLOGIST: Location: [facility] [place] Patient: Ninfa Escalera : 1960 Visit/Account:[id number] Date of Sevice: 02/07/2018 ABDOMEN PELVIS ESWL CYSTO W/O HISTORY: Patient had a very large stone lodged in the proximal right ureter measuring 1.8 cm maximum dimension Which is seen on previous CT scan dated 12/20/2017 with extensive hydronephrosis. A percu taneous nephrostomy tube was placed with decompression of the right renal collecting system seen on t he CT scan January 01, 2018. Patient now status post ESWL. TECHNIQUE: Axial images acquired through the abdomen/pelvis. Coronal and sagittal reformatting also performed. No IV contrast administered. One of the following dose optimization techniques was utili zed in the performance of this exam: Automated exposure control; adjustment of the mA and/or kV accor ding to the patient's size; or use of an iterative reconstruction technique. Specific details can b e referenced in the facility's radiology CT exam operational policy. COMPARISON: Above-mentioned CT scans January 01, 2018 and 12/20/2017 FINDINGS: Visualized lung bases: Negative. Hepatobiliary: Normal liver. Again seen are multiple small stones in the gallbladder. Spleen: Negative. Adrenals: Negative. Pancreas: Negative. Kidneys ureters and bladder: The right external nephrostomy tube has been removed and there is now a internal double-J nephrostomy tube in place. Status post ESWL the very large right ureteral stone wh ich measured 1.8 x 1.2 x 0.7 cm is no longer present in the right ureter. There is a small 2 x 4 mm stone stone in the right renal pelvis was not present on the previous study and consequently represen ts a stone fragment from the lithotripsy. There is mild right-sided hydronephrosis which is unchange d from the previous CT scan. The ureteral stent is well-positioned. The left kidney left ureter appear normal. Urinary bladder normal. Genitalia: Negative. GI: Negative. Vessels/spaces/nodes: Negative. Bones/soft tissues: There is an old mild wedge compression fracture of the L1 vertebral body unchang ed. No acute osseous pathology identified. Additional findings: None pertinent. IMPRESSION: Interval ESWL and the previously seen right ureteral stone fragments have all past with the exception of a 2 x 4 mm fragment refluxed into the right renal pelvis. Interval exchange of a right percutaneous nephrostomy tube for a right internal ureteral stent. Cholelithiasis. Report Dictated By: Jordan Carrera MD at 02/07/2018 2:16 PM Report E-Signed By: Jordan Carrera MD at 02/07/2018 2:25 PM WSN:[id number]
== END ==
LOC: CT 01:48
PROVIDERS: ATTEND Urology
DX: N20.1 Calculus of ureter (principal); K80.20 Calculus of gallbladder without cholecystitis without obstruction
CPT/HCPCS: 74176

== ENCOUNTER → 2018-04-04 | Outpatient (CLI) | payer BC ==
--- NOTE | 2018-04-04 15:00 | RADIOLOGY IMAGING REPORT ---
FACILITY: [facility] [place] PATIENT NAME: Ninfa Escalera : 1960 MR: [id number] V: [id number] EXAM DATE: ORDERING PHYSICIAN: TIERNEY HOWELL TECHNOLOGIST: Location: [facility] Patient: Ninfa Escalera : 1960 Visit/Account:[id number] Date of Sevice: 04/04/2018 ABDOMEN PELVIS ESWL CYSTO W/O HISTORY: Stones TECHNIQUE: Axial images acquired through the abdomen/pelvis. Coronal and sagittal reformatting also performed. No IV contrast administered. Dose Lowering Technique One of the following dose optimization techniques was utilized in the performance of this exam: Autom ated exposure control; adjustment of the mA and/or kV according to the patient's size; or use of an i terative reconstruction technique. Specific details can be referenced in the facility's radiology C T exam operational policy. COMPARISON: February 07, 2018 FINDINGS: Visualized lung bases: There is a minimal groundglass opacity incompletely imaged in the lateral asp ect of the right lower lobe. This could represent a small amount of atelectasis versus developing in filtrate Hepatobiliary: Cholelithiasis although no evidence of biliary ductal dilatation Spleen: Negative. Adrenals: Negative. Pancreas: There is a small punctate calcification head of the pancreas Kidneys ureters and bladder: The right kidney appears atrophic. There is moderate perinephric strand ing on the right relatively unchanged. Previously noted right ureteral stent is no longer seen. The right renal pelvis appears mildly patulous although similar to the prior study. There is increased density of the urothelial lining throughout the right renal collecting system and proximal third of the right ureter possibly related to inflammation/infection.. There are two contiguous calculi in the proximal right ureter just beyond the right UPJ. These measu re approximately 2 x 1 mm and 2 x 3 mm There is an additional nonobstructing 5 mm calculus lower pole calyx of the right kidney. No calcifications are seen in the left renal collecting system The urinary bladder is mildly distended. Genitalia: Negative. GI: There suggestion of a hiatal hernia although this is incompletely imaged on the uppermost images . There is mild colonic diverticulosis although no CT evidence of acute diverticulitis Vessels/spaces/nodes: Negative. Bones/soft tissues: Old mild wedge deformity of L1 appears unchanged. There are spondylotic changes in the visualized thoracolumbar spine. Additional findings: None pertinent. IMPRESSION: Interval removal of the right ureteral stent. This mild increased density of the urothelial lining o f the right renal pelvis and proximal third of the right ureter which could be related to inflammatio n/infection. There is a 5 mm nonobstructing calculus lower pole calyx of the right kidney. There are two contiguous calculi in the proximal right ureter just beyond the right UPJ, one measurin g 2 x 1 mm one measuring 2 x 3 mm. Cholelithiasis Minimal groundglass opacity incompletely imaged in the lateral aspect right lower lobe which could re present a small amount of atelectasis versus developing infiltrate Additional chronic findings as described Report Dictated By: Roseline Contreras MD at 04/04/2018 2:45 PM Report E-Signed By: Roseline Contreras MD at 04/04/2018 2:57 PM WSN:[email or web address]
== END ==
LOC: CT 00:54
PROVIDERS: ATTEND Urology
DX: N20.0 Calculus of kidney (principal); K80.20 Calculus of gallbladder without cholecystitis without obstruction; R91.8 Other nonspecific abnormal finding of lung field
CPT/HCPCS: 74176

== ENCOUNTER → 2018-04-09 | Outpatient (CLI) | payer BC ==
--- NOTE | 2018-04-10 13:15 | RADIOLOGY IMAGING REPORT ---
FACILITY: [facility] [place] PATIENT NAME: PANCHO LOZANO : [id number] MR: [id number] V: [id number] EXAM DATE: [id number] ORDERING PHYSICIAN: NUNU ANDREW TECHNOLOGIST: Tere Mcgrath PROCEDURE:BILATERAL DIGITAL SCREENING MAMMOGRAM WITH CAD ASSISTED INTERPRETATION & 3D TOMOSYNTHESIS COMPARISON:04/07/17 & priors to 12/19/2012 INDICATIONS:SCREENING FINDINGS: Breast parenchyma has scattered fibroglandular densities. There are no mammographic findings concerning for malignancy. There is no significant interval change. DIAGNOSTIC CATEGORY 1--NEGATIVE. RECOMMENDATIONS: ROUTINE MAMMOGRAM AND CLINICAL EVALUATION. IMPRESSION: BIRADS 1: Negative. Dictated by: Miguel Angel Mooney on 04/10/2018 at 11:03 Transcribed by: LOW on 04/10/2018 at 12:49 Approved by: Miguel Angel Mooney on 04/10/2018 at 13:15 [facility]
== END ==
LOC: MAMO 03:43
PROVIDERS: ATTEND Nurse Practitioner Family
DX: Z12.31 Encounter for screening mammogram for malignant neoplasm of breast (principal)
CPT/HCPCS: 77063; 77067

== ENCOUNTER 2018-04-19 00:45 | Day surgery (SDC) | payer BC ==
--- NOTE | 2018-04-18 15:27 | HISTORY AND PHYSICAL ---
DATE OF ADMISSION: April 19, 2018 CHIEF COMPLAINT Right kidney stones. HISTORY OF PRESENT ILLNESS Patient is a 57-year-old white female who was originally found to have a large impacted right mid ureteral stone which required a percutaneous nephrostomy tube placement earlier this year. She was subsequently taken back to the operating room in mid December and underwent stent placement with right extracorporeal shock wave lithotripsy. She was returned to the operating room January 15 and underwent ureteroscopy with fragmentation of ureteral stones and removing of multiple fragments. She was left with a double-J stent, which was subsequently removed in the office. A followup low-dose CT scan performed in mid March revealed two contiguous calculi in the right proximal ureter measuring 2 x 1 and 2 x 3 mm. In addition, she was noted to have 5 mm lower pole fragment. She is now being returned to the operating room for planned anesthetic cystoscopy, ureteroscopy, stone manipulation, and possible extracorporeal shock wave lithotripsy. PAST MEDICAL HISTORY * Gout. * Arthritis. * Chronic low back pain. * Depression. * History of ethanol abuse. * Kidney stones. PAST SURGICAL HISTORY * . * Right shoulder surgery. * Right attempted stent placement with percutaneous nephrostomy tube placement on December 25, 2017. * Right mid ureteral extracorporeal shock wave lithotripsy with stent placement on January 01, 2018. * Right ureteroscopy with stent exchange on January 15. CURRENT MEDICATIONS * Effexor. * BuSpar. * Wellbutrin. * Uloric. * Probenecid. * Colchicine. * Multivitamins. ALLERGIES No known drug allergies. SOCIAL HISTORY Patient lives in [place], [place], and is . FAMILY HISTORY Significant for a daughter with vesicoureteral reflux. REVIEW OF SYSTEMS Patient denies chest pain, productive cough, fever, chills, nausea, vomiting, bleeding disorder, flank pain, or chronic headaches. PHYSICAL EXAMINATION GENERAL: Patient is a well-developed, well-nourished, white female in no acute distress. HEENT: Normocephalic, atraumatic. CHEST: Clear to auscultation bilaterally. CARDIOVASCULAR: Regular rate and rhythm. ABDOMEN: Soft, nontender. No masses are palpated. GENITOURINARY: Deferred to the OR. EXTREMITIES: Without clubbing, cyanosis, or edema. NEUROLOGIC: Nonfocal. IMPRESSION * A 57-year-old white female with residual right proximal ureteral stones as well as 5 mm lower pole fragment. PLAN We will perform anesthetic cystoscopy, stone manipulation, stent placement, and possible extracorporeal shock wave lithotripsy. MTDD
[~2018-04-19] VITALS: Ht 167.6 cm; Wt 82.6 kg
[2018-04-19] MEDS ORDERED: fentaNYL CITR 100 MCG/2 ML AMP ONE ×2 (08:07→10:48)
[2018-04-19] MEDS ORDERED: LIDOCAINE 2% IV 100 MG/5ML SYR ONE (08:08)
[2018-04-19] MEDS ORDERED: PROPOFOL EMUL(*) 10MG/ML 20 ML 20 ML ONE (08:08)
[2018-04-19 08:17] VITALS: BP 105/76
--- NOTE | 2018-04-19 08:26 | RADIOLOGY IMAGING REPORT ---
[place] [facility] [place] Ninfa Escalera : 1960 MR: [id number] V: [id number] EXAM DATE: ORDERING PHYSICIAN: TIERNEY HOWELL TECHNOLOGIST: Location: [facility] Patient: Ninfa Escalera : 1960 Visit/Account:[id number] Date of Sevice: 04/19/2018 Exam type: KUB SINGLE VIEW ABDOMEN History: PRE-OP, ESWL PROCEDURE. Comparison: January 15, 2018. Findings: Previously noted right ureteral stent is no longer seen. The bowel gas pattern is nonspecific. No d efinite calcination occasions are seen projecting over the renal shadows. There is an amorphous calc ification projecting just above the left iliac crest that has remained stable not likely within the G U tract. There are spondylotic changes of the lumbar spine IMPRESSION: 1. Right ureteral stent is no longer seen No definite calcifications are seen over the renal shadows although these are partially obscured by o verlying bowel gas Report Dictated By: Roseline Contreras MD at 04/19/2018 8:20 AM Report E-Signed By: Roseline Contreras MD at 04/19/2018 8:22 AM WSN:[email or web address]
[2018-04-19] MEDS ORDERED: IOPAMIDOL-200 50 ML VIAL IS ONE (09:07)
[2018-04-19] MEDS ORDERED: MIDAZOLAM 2 MG/2 ML VIAL IVP PRN (09:55)
[2018-04-19] MEDS ORDERED: LIDOCAINE/SOD BICARB 8.4% SYR ID ONE (09:55)
[2018-04-19] MEDS ORDERED: ceFAZolin(*) 1 GM VIAL 1 GM in NS(*) 0.9% 100 ML ADDVANT BAG 100 ML IVPB ONE (09:55)
[2018-04-19] MEDS ORDERED: FAMOTIDINE 20 MG TAB PO ONE (09:55)
[2018-04-19] MEDS ORDERED: NORMOSOL R SOLN(*) 1000 ML BAG 1,000 ML IV PRN (09:55)
[2018-04-19] MEDS ORDERED: ONDANSETRON 4 MG/2 ML VIAL ONE ×2 (10:11→11:55)
[2018-04-19] MEDS ORDERED: DEXAMETHASONE SOD 4 MG/ML VIAL ONE ×2 (10:11→11:53)
[2018-04-19] MEDS ORDERED: BELLADONNA ALK/OPIUM 60MG SUPP PR ONE (11:25)
[2018-04-19] MEDS ORDERED: HYDR-4309 PO (12:00)
[2018-04-19] MEDS ORDERED: DOCU-416 PO (12:00)
[2018-04-19] MEDS ORDERED: IBUP-1671 PO (12:01)
[2018-04-19] MEDS ORDERED: TAMS0.4C25 PO (12:02)
[2018-04-19] MEDS ORDERED: PHEN200T32 PO (12:02)
[2018-04-19 12:34] VITALS: BP 97/71
[2018-04-19 12:45] VITALS: BP 98/68
[2018-04-19 13:15] VITALS: BP 111/74
[2018-04-19 13:24] VITALS: BP 95/56
[2018-04-19 13:26] VITALS: BP 101/73
--- NOTE | 2018-04-19 14:25 | RADIOLOGY IMAGING REPORT ---
[place] [facility] [place] NAME: Ninfa Escalera : 1960 MR: [id number] V: [id number] EXAM DATE: ORDERING PHYSICIAN: TIERNEY HOWELL TECHNOLOGIST: Location: [facility] [place] Patient: Ninfa Escalera : 1960 Visit/Account:[id number] Date of Sevice: 04/19/2018 Exam type: RETROGRADE PYELOGRAM History: HEMATURIA AND STONE Comparison: CT abdomen pelvis April 04, 2018. Findings: 121 portable intraoperative fluoroscopic spot images of the abdomen and pelvis were submitted. The t otal prostate be time was 1.07 minutes. The fluoroscopy dose was 49.9 mGray.. Multiple images demonstrate a right ureteroscope and guidewire. Contrast is identified in the dilate d right renal pelvis. On the final images a right ureteral stent is in place. IMPRESSION: 1. As above Report Dictated By: Roseline Contreras MD at 04/19/2018 2:12 PM Report E-Signed By: Roseline Contreras MD at 04/19/2018 2:20 PM WSN:[email or web address]
--- NOTE | 2018-04-19 16:58 | OPERATIVE REPORT 1 ---
EVENT DATE: April 19, 2018 SURGEON: Kenneth Carver MD ANESTHESIOLOGIST: Husam Guerra MD ANESTHESIA: General anesthetic. PREOPERATIVE DIAGNOSIS Right ureteral calculi and lower pole stone. POSTOPERATIVE DIAGNOSES 1. Right ureteral calculi. 2. Left renal stone. 3. Proximal left mid ureteral narrowing. PROCEDURES PERFORMED 1. Cystoscopy. 2. Right semi-rigid and flexible ureteroscopy. 3. Laser fragmentation of renal stone with grasping of fragments times four. 4. Right internal double-J ureteral stent placement. ESTIMATED BLOOD LOSS Minimal. INTRAVENOUS FLUIDS Crystalloid. DRAINS 7-Mosotho x 24 cm Contour stent on right. PATHOLOGY Stone fragments sent for analysis. COMPLICATIONS None. CONDITION Patient taken to recovery room awake and in stable condition. STATEMENT OF MEDICAL NECESSITY Patient is a 57-year-old white female who was originally found to have a large, impacted right proximal ureteral stone which required percutaneous nephrostomy tube. This was followed by extracorporeal shock wave lithotripsy, stent placement, and ureteroscopy. Followup low-dose CT scan in March revealed two contiguous calculi in the right proximal ureter measuring 2 x 3 and 2 x 1 mm in addition to having an approximately 4 mm stone in the lower pole. The patient is now being brought to the operating room for planned ureteroscopy and ESWL as indicated. DESCRIPTION OF OPERATION PERFORMED Patient was brought to the operating room. After general anesthetic was obtained, she was placed in the dorsal lithotomy position and prepped and draped sterilely. Anesthetic cystoscopy was performed with the 21-Mosotho rigid Pena sheath and a 30-degree lens. She had a normal-appearing urethra and bladder mucosa. Her ureteral orifices were slit-like in appearance, both effluxing clear urine. The right ureteral orifice was cannulated with an open- ended access catheter which was easily advanced to the mid ureter. A 0.035 double floppy and Sensor type wire was advanced in the lumen of the Axxcess catheter. The Axxcess catheter was removed. This wire was used to place an 8/ 10 dilating system. A second wire was placed alongside the first wire inside the 10 sheath. The 10 sheath was removed. One wire was secured to the drapes as a safety wire. The next wire was backloaded into the Pena semi-rigid ureteroscope. A ureteroscopy was performed over the working wire, and under direct vision, her distal and mid ureter appeared normal. At the previous area of impacted stone, the ureter had a circumferential narrowing, but admitted the scope through without significant resistance. Just beyond this, two stones were identified, one measuring approximately 2 x 1 and one 2 x 3 mm. These were pushed back to the upper pole calyx of the kidney with irrigation. The semi-rigid scope was removed. The working wire was then used to place an 11 x 13 ureteral access sheath of 28 cm in length. The working wire was then removed , and the [employer] flexible ureteroscope was introduced into the access sheath and advanced up under direct vision to the upper pole calyx where the two stones were encountered. The holmium laser fiber of 200 size was then introduced, and the stones were fragmented into several even smaller parts. The [employer] grasping forceps was then used to individually engage these fragments and remove them down the ureter through the access sheath to the outside of the body. After these fragments were removed, ureteroscopy of the upper, lower, and mid pole calices was performed with the flexible ureteroscope. No other fragments were identified in the remaining areas of the kidneys. A retrograde pyelogram was performed through the working channel of the cystoscope to delineate the caliceal anatomy. Each caliceal was individually inspected to confirm no residual fragments. Following this, the flexible scope was advanced down the ureter to the area of the ureteral narrowing, and this appeared to be likely related to her impacted stone, but appeared to be adequate diameter. The length of the narrowing was relatively short at 2 to 3 mm. At this point, it was unclear whether this was a truly significant functional ureteral stricture or just some narrowing that has no functional significance. She has not had a stent in for two months, and her preoperative CT revealed no evidence of significant hydronephrosis above this area. Therefore, at this point, it was decided to place a ureteral stent and then remove that in the office and perform a functional followup test to evaluate the significance of this finding. Pull-out ureteroscopy was performed at this point. The remainder of the ureter appeared normal without evidence of injury or remaining stones. The safety wire was backloaded into the cystoscope, and this was used to place a 7- Mosotho x 24 cm Contour stent on the right side. She was noted to have curling in the renal pelvis by fluoroscopy and good curling in the bladder by direct vision. The patient's bladder was drained through the cystoscopic sheath. A B and O suppository was given at the conclusion of the case. She was awakened in the operating room and taken to the recovery area in stable condition. The plan will be to allow the patient to be discharged home today on Flomax, Pyridium, Colace, [place], Motrin, and Ditropan. We will see in the Urology Clinic in two to three weeks to remove her stent and then schedule a functional test following this. CHELSEY
== END 2018-04-19 12:34 | disposition home or self-care (01) ==
LOC: OR 00:45
PROVIDERS: ATTEND Urology
DX: N20.2 Calculus of kidney with calculus of ureter (principal); N13.5 Crossing vessel and stricture of ureter without hydronephrosis
CPT/HCPCS: 52332; 52352; 74018; 74420; 81001; 82365; 87088; 88300; 94667; C1726; C1758; C1769; C1894; C2617; J0690; J1100; J2001; J2250; J2405; J2704; J3010; J7050; Q9966

== ENCOUNTER → 2018-05-08 | Outpatient (CLI) | payer BC ==
[~2018-05-08] MED LIST changes: +IBUP-1671 PO
--- NOTE | 2018-05-08 15:53 | RADIOLOGY IMAGING REPORT ---
FACILITY: [facility] - [place] PATIENT NAME: Ninfa Escalera : 1960 MR: [id number] V: [id number] EXAM DATE: ORDERING PHYSICIAN: TIERNEY HOWELL TECHNOLOGIST: Location: [facility] [place] Patient: Ninfa Escalera : 1960 Visit/Account:[id number] Date of Sevice: 05/08/2018 ABDOMEN PELVIS ESWL CYSTO W/O HISTORY: Right ureteral narrowing, right renal atrophy history of kidney stones TECHNIQUE: Axial images acquired through the abdomen/pelvis. Coronal and sagittal reformatting also performed. No IV contrast administered. Dose Lowering Technique One of the following dose optimization techniques was utilized in the performance of this exam: Autom ated exposure control; adjustment of the mA and/or kV according to the patient's size; or use of an i terative reconstruction technique. Specific details can be referenced in the facility's radiology C T exam operational policy. COMPARISON: April 04, 2018 FINDINGS: Visualized lung bases: Small amount of linear stranding in the left lung base may represent scarring versus atelectasis. There is a small focal area of fatty eventration along the posterior aspect of the right hemidiaphragm. Hepatobiliary: Cholelithiasis although no evidence of biliary ductal dilatation Spleen: Negative. Adrenals: Negative. Pancreas: Small punctate calcification again seen at the head of the pancreas Kidneys ureters and bladder: Again noted is an atrophic appearing right kidney with moderate perineph sai stranding the right renal collecting system appears less dilated. There are two contiguous calci fications again noted in the proximal right ureter just beyond the right UPJ measuring 2 x 1 and 2 x 3 mm. the additional 5 mm nonobstructing calculus previously seen in the lower pole calyx the right kidney is no longer identified. No calcifications are seen in the left renal collecting system or left ureter Genitalia: Negative. GI: Small hiatal hernia. There is mild diverticulosis of colon although no CT evidence of acute diverticulitis Vessels/spaces/nodes: Negative. Bones/soft tissues: Old mild wedge deformity of L1 appears unchanged. Spondylotic changes of the th oracal lumbar spine again seen Additional findings: None pertinent. IMPRESSION: Cholelithiasis although no evidence of bony ductal dilatation Atrophic appearing right kidney with moderate perinephric stranding. The right renal collecting syst em is mildly patulous although appears slightly less dilated when compared the prior study 2. Contig uous calcination occasions are again noted in the proximal right ureter similar to the prior study. The previously noted 5 mm nonobstructing calculus lower pole right kidney is no longer seen. Additional chronic findings as described Report Dictated By: Roseline Contreras MD at 05/08/2018 3:23 PM Report E-Signed By: Roseline Contreras MD at 05/08/2018 3:49 PM WSN:[email or web address]
== END ==
LOC: CT 01:09
PROVIDERS: ATTEND Urology
DX: K80.20 Calculus of gallbladder without cholecystitis without obstruction (principal); R91.8 Other nonspecific abnormal finding of lung field; N20.0 Calculus of kidney; K44.9 Diaphragmatic hernia without obstruction or gangrene; K57.30 Diverticulosis of large intestine without perforation or abscess without bleeding
CPT/HCPCS: 74176

== ENCOUNTER → 2018-05-18 | Outpatient (CLI) | payer BC ==
[~2018-05-18] MED LIST changes: +FUROSEMIDE 40 MG/4 ML VIAL IVP ONE
--- NOTE | 2018-05-19 01:51 | RADIOLOGY IMAGING REPORT ---
FACILITY: [facility] - [place] PATIENT NAME: Ninfa Escalera : 1960 MR: [id number] V: [id number] EXAM DATE: ORDERING PHYSICIAN: TIERNEY HOWELL TECHNOLOGIST: Location: Patient: Ninfa Escalera : 1960 Visit/Account:[id number] Date of Sevice: 05/18/2018 KIDNEY W/PHARMACEUTICAL Additional title: Lasix renogram HISTORY: Long-standing right-sided renal collecting system obstruction due to proximal ureteral ston es. Additional history: None COMPARISON: Comparison made to CT scans dated 05/08/2018, 04/04/2018, and 01/01/2018 which demonstrates long-standing obstruction of the right renal collecting system due to ureteral stones. Patient had a percutaneous nephrostomy in December 2017 but nephrostomy tube was withdrawn between the December an d March CT scans.. There is mild progressive right renal cortical atrophy seen on serial CT scans due t o the long-standing obstruction. TECHNIQUE: 21.6 mCi technetium 99m labeled DTPA was administered for this study. Patient also receive d 40 mg of furosemide. Serial planar imaging was performed and activity flow charts were grafted. FINDINGS: There is an abnormal split function 80% left kidney and 20% right kidney. The left kidney renogram cu rve is normal with time to peak at 3 minutes with subsequent decreasing activity curve. The right cori ogram curve is abnormal. There is delayed cortical activity and imaging demonstrates slow progressive increase in activity through the 43 minutes of serial imaging although the activity curve appears re latively flat. Lasix has no effect on the right kidney activity curve. IMPRESSION: Left renogram normal. Findings consistent with Persistent right renal collecting system obstruction. Abnormal split function is 80% left kidney and 20% right kidney. Reduced right renal function may be due the fact that the collecting system is still obstructed and also related to injury related to the long-standing obstruction. Report Dictated By: Jordan Carrera MD at 05/19/2018 1:30 AM Report E-Signed By: Jordan Carrera MD at 05/19/2018 1:47 AM WSN:[email or web address]
== END ==
LOC: NUC 04:04
PROVIDERS: ATTEND Urology
DX: N26.1 Atrophy of kidney (terminal) (principal); N20.1 Calculus of ureter
CPT/HCPCS: 78708; A9539; J1940

== ENCOUNTER 2018-06-04 00:51 | Day surgery (SDC) | payer BC ==
[2018-06-01 17:23] LABS: PLATELET COUNT, AUTOMATED 163 K/uL (150-450)
[~2018-06-04] VITALS: Ht 165.1 cm; Wt 82.1 kg
[2018-06-04] VITALS (8 sets, daily range): BP systolic 86–134; BP diastolic 47–80
[~2018-06-04 00:51] MED LIST changes: -FUROSEMIDE 40 MG/4 ML VIAL IVP ONE
[2018-06-04] MEDS ORDERED: ceFAZolin(*) 1 GM VIAL 1 GM in NS(*) 0.9% 100 ML ADDVANT BAG 100 ML IVPB ONE (06:00)
[2018-06-04] MEDS ORDERED: ceFAZolin(*) 1 GM VIAL 1 GM, GENTAMICIN(*) 80 MG/2 ML VIAL 60 MG in NS 0.9% IRRIGATION ... IR ONE (06:00)
[2018-06-04] MEDS ORDERED: LIDOCAINE/SOD BICARB 8.4% SYR ID ONE (06:00)
[2018-06-04] MEDS ORDERED: MIDAZOLAM 2 MG/2 ML VIAL IVP PRN (06:00)
[2018-06-04] MEDS ORDERED: FAMOTIDINE 20 MG TAB PO ONE (06:00)
[2018-06-04] MEDS: NORMOSOL R SOLN(*) 1000 ML BAG 1,000 ML IV PRN ×3 (06:18→13:02)
[2018-06-04] MEDS ORDERED: BELLADONNA ALK/OPIUM 60MG SUPP PR ONE (06:44)
[2018-06-04] MEDS ORDERED: HYDROCORTISONE 1% CR 28.35 GM TP ONE (06:44)
[2018-06-04] MEDS ORDERED: IOPAMIDOL-200 50 ML VIAL IS ONE (06:44)
[2018-06-04] MEDS ORDERED: ONDANSETRON 4 MG/2 ML VIAL ONE (07:12)
[2018-06-04] MEDS ORDERED: PROPOFOL EMUL(*) 10MG/ML 20 ML 20 ML ONE (07:12)
[2018-06-04] MEDS ORDERED: DEXAMETHASONE SOD PHOS 10MG/ML ONE (07:12)
[2018-06-04] MEDS ORDERED: fentaNYL CITR 100 MCG/2 ML AMP ONE ×2 (07:12→09:11)
[2018-06-04] MEDS ORDERED: LIDOCAINE MPF 1% 5 ML VIAL ONE (07:12)
[2018-06-04] MEDS ORDERED: MIDAZOLAM 2 MG/2 ML VIAL ONE (07:12)
[2018-06-04] MEDS ORDERED: PHENYLEPHRINE/NS/PF 0.4MG/10ML ONE (08:00)
--- NOTE | 2018-06-04 08:12 | HISTORY AND PHYSICAL ---
DATE OF ADMISSION: June 04, 2018 CHIEF COMPLAINT Kidney stones with proximal right ureteral narrowing and submucosal ureteral fragments. HISTORY OF PRESENT ILLNESS Patient is a 50-year-old white female who was referred to urology in December of this year after she was noted to have right hydronephrosis from an MRI performed for right hip and lower quadrant pain. A CT scan was performed, which showed a 1.8 x 0.8 x 1.1 cm right proximal impacted ureteral stone with hydronephrosis and renal atrophy. She was subsequently taken to the operating room on December 25 for attempted JJ stent placement. This was unsuccessful and she underwent a percutaneous nephrostomy tube placement on December 26 in [place]. At that time, the interventional radiologist was unable to internalize the stent past the stone. She was subsequently taken back to the operating room on January 01 and underwent successful right internal JJ stent, followed by removal of her percutaneous nephrostomy tube at that time. On January 15, she returned to the operating room for follow up right ureteroscopy with laser fragmentation of remaining stones and replacement of her JJ stent. Her stent was subsequently removed on February 17 in the office. She was seen back in the urology clinic approximately six weeks later on April 04. At that time, a CT scan was performed and she was noted to have a 5 x 4 mm stone in the lower pole of the kidney as well as having the two stones in the proximal ureter with one measuring 2 x 3 and one measuring 2 x 1 mm. She was taken to the operating room on April 19 and underwent right ureteroureterostomy. Her lower pole fragment was fragmented and removed. She had no visible stones in the ureter at this time. However, she was noted to have proximal ureteral narrowing at the level of her stone impaction. The length of the narrowing was approximately 2 mm. At this point, a 7F x 24 cm Contour stent was placed. The first stent was subsequently removed on April 24 in the office. A followup low-dose CT scan showed no residual renal stones. However, she had the continued remaining two calcifications at the proximal ureter, which appeared to be unchanged from her CT scan from April 04. It appeared these calcifications were suburothelial fragments at the area of impaction. A DTPA renal scan with Lasix washout was subsequently performed on May 22, which showed a renal function on the right of only 20% and 80% on the left. She had a flat curve on the right side with a mild tracer accumulation over the course of the study. These findings were discussed with the patient and it appears that she had poor renal function from longstanding obstruction on the right side from this impacted stone with narrowed ureter with now some suburothelial remaining fragments. Options were discussed including possible endoscopic incision at the narrowed area with retrieval of fragments versus simple dilation versus possible open and/or laparoscopic end-to-end ureteral anastomosis to repair this area. Given her relatively poor function on the right side, she may best be served by simple nephrectomy. The current plan is to replace her JJ stent and to reevaluate her renal function and then to proceed with ureteral stricture intervention and/or nephrectomy as indicated. PAST MEDICAL HISTORY * Gout. * Arthritis. * Chronic low back pain. * Depression. * History of ethanol abuse. * Kidney stones. PAST SURGICAL HISTORY * . * Right shoulder surgery. * Right ureteroureterostomy as per HPI. ALLERGIES No known drug allergies. CURRENT MEDICATIONS * Effexor. * BuSpar. * Wellbutrin. * Uloric. * Probenecid. * Colchicine. * Multivitamins. SOCIAL HISTORY Patient lives in [place], [place]. She is . FAMILY HISTORY Significant for daughter with vesicular ureteral reflux. REVIEW OF SYSTEMS Patient denies chest pain, productive cough, fever, chills, nausea, vomiting, gross hematuria, bleeding disorder or liver disease. PHYSICAL EXAMINATION GENERAL: Patient is a well-developed, well-nourished white female in no acute distress. HEENT: Normocephalic/atraumatic. CHEST: Clear to auscultation bilaterally. CV: Regular rate and rhythm. ABDOMEN: Soft, nontender. No mass palpated. : Deferred to OR. EXTREMITIES: No clubbing, cyanosis or edema. Otherwise, exam is nonfocal. ASSESSMENT * A 58-year-old white female with a history of impacted proximal ureteral stone with longstanding hydronephrosis and renal atrophy now with continued ureteral narrowing and what appears to be suburothelial remaining fragments. She has poor current renal function of about 20% with Lasix washout with no internal stent. PLAN We will perform anesthetic cystoscopy and retrograde pyelogram and right ureteral stent placement with possible ureteroscopy. We will then reevaluate her renal function in this patient for either ureteral intervention and/or nephrectomy as indicated. [facility]
--- NOTE | 2018-06-04 09:16 | RADIOLOGY IMAGING REPORT ---
FACILITY: [facility] PATIENT NAME: Ninfa Escalera : 1960 MR: [id number] V: [id number] EXAM DATE: ORDERING PHYSICIAN: TIERNEY HOWELL TECHNOLOGIST: Location: [facility] Patient: Ninfa Escalera : 1960 Visit/Account:[id number] Date of Sevice: 06/04/2018 RETROGRADE PYELOGRAM Indication: KIDNEY STONES Comparison: None. Radiation dose: AK 22.45 mGy Findings: Images from a retrograde right sided ureterogram are reviewed. Right ureter is patent. Di lated right pelvis is seen. Calyces are normal. Final image demonstrates a right-sided double-J claudia nt. IMPRESSION: 1. Right-sided retrograde ureterogram. 2. Final image demonstrates a right-sided double-J stent in good position. Report Dictated By: Miguel Angel Fallon at 06/04/2018 9:10 AM Report E-Signed By: Miguel Angel Fallon at 06/04/2018 9:12 AM WSN:[id number]
[2018-06-04] MEDS ORDERED: PHEN200T32 PO (09:29)
[2018-06-04] MEDS ORDERED: OXYB10TA21 PO (09:30)
[2018-06-04] MEDS ORDERED: DOCU-416 PO (09:30)
[2018-06-04] MEDS ORDERED: HYDR-4309 PO (09:31)
--- NOTE | 2018-06-04 10:57 | PIERCE CYSTOSCOPY ---
EVENT DATE: June 04, 2018 SURGEON: Kenneth Carver MD ANESTHESIOLOGIST: Fady Puentes M.D. ANESTHESIA: General PREOPERATIVE DIAGNOSES Right proximal ureteral narrowing with suburothelial calcification fragments and renal atrophy. POSTOPERATIVE DIAGNOSES 1. Right proximal ureteral narrowing with suburothelial calcification fragments and renal atrophy. 2. Partial ureteral obstruction. PROCEDURES PERFORMED 1. Cystoscopy. 2. Right retrograde pyelograms. 3. Right internal JJ ureteral stent placement. ESTIMATED BLOOD LOSS Minimal. IV FLUIDS Crystalloids. DRAINS 7-Turkish x 24 cm Contour stent on the right. . FINDINGS Mild proximal ureteral narrowing, approximately 3 cm from UPJ with dilated renal pelvis but sharp caliceal system with mild delay in drainage. COMPLICATIONS None. CONDITION The patient was taken to recovery room awake and in stable condition. STATEMENT OF MEDICAL NECESSITY The patient is a 58-year-old white female who originally was found to have an impacted proximal ureteral stone in December, which ultimately required a right percutaneous nephrostomy tube placement followed by internalization of the stent with ESWL and subsequent ureteroscopy. Her followup films revealed two small calcifications in the right proximal ureter at the prior level of the impacted stone as well as having a right lower pole calcification. She was taken to the operating room approximately six weeks ago and underwent ureteroscopic extraction and fragmentation of her right lower pole renal calculi. She was also noted to have some ureteral narrowing at the area of the prior impaction. However, she had no intra-intraluminal stones identified on ureteroscopy. She was placed with a stent following this procedure. Following this, the stent was removed in the office. Followup x-ray revealed no further renal stones but the two calcifications at the proximal ureter were unchanged, most consistent with suburothelial fragments. A DTPA renal scan was performed, which showed a 20% function on the right side with a flat excretion curve. The patient is currently asymptomatic and a stable creatinine of approximately 1.2. Options of continued observation versus intervention at the narrowed ureteral segment versus nephrectomy were discussed. She is now being brought to the operating room to further evaluate the length and degree of narrowing with a retrograde pyelogram followed by possible internal ureteral stent placement for maximum drainage pending ultimate treatment decision. DESCRIPTION OF OPERATION PERFORMED The patient was brought to the operating room and after general anesthetic was obtained, she was placed in the dorsal lithotomy position and prepped and draped in the usual sterile manner. Anesthetic cystoscopy was performed with the 21-Turkish rigid Wool sheath and a 30-degree lens. Her bladder mucosa was normal. She had a clear efflux of urine from both respective ureteral offices. The right ureteral orifice was cannulated with a 6-Turkish opening access catheter, which was advanced in the distal ureter. A retrograde pyelogram was performed by injecting 7 mL of contrast material in retrograde manner under fluoroscopic imaging. Bimanual interpretation of the film, she had a normal appearing distal and mid ureter. In the proximal ureter, there was a short area of mild to moderate narrowing, approximately 3 cm from the UPJ. The renal pelvis was moderately dilated. However, the caliceal system was sharp. The catheter was removed. Delayed images were taken out to 15 minutes. Over the course of this, by visual inspection, she had efflux of contrast from the right system by cystoscopic exam. Fluoroscopic intermittent images showed drainage of the right system down the ureter through the narrowed area. It appeared that she had longstanding obstruction causing her renal pelvis to be capacious in nature. However, at this point, her caliceal system was sharp and it did not appear she had a significant obstruction. However, after 15 minutes, the kidney was only approximately 75% drained, consistent with a partial obstruction. Therefore, at this point the access catheter was reintroduced and a 0.38 wire was advanced in the lumen of the access catheter to the renal pelvis. The access catheter was removed. This wire was used to place a 7- Turkish x 24 cm Contour stent. The wire was then removed. She was noted to have good coiling in the renal pelvis and good coiling in the bladder by direct vision. The patient's bladder was drained through the cystoscopic sheath and the scope was removed. A five minute delayed film was obtained, which showed excellent drainage of the collecting system.The patient was awakened in the operating room and taken to the recovery area awake in stable condition. PLAN We will allow the patient to be discharged home today on Colace, [place]wood, Pyridium and Ditropan XL. We will see her in the urology clinic in one week to discuss the operative findings and further treatment options, which will include simple removal of the stent followed with observation of renal function with a plan if renal function decreases we will perform a simple nephrectomy versus operative intervention at the ureteral site with most likely end-to-end anastomosis versus simple nephrectomy. CHELSEY
== END 2018-06-04 09:40 | disposition home or self-care (01) ==
LOC: OR 00:51
PROVIDERS: ATTEND Urology
DX: N13.5 Crossing vessel and stricture of ureter without hydronephrosis (principal); N26.1 Atrophy of kidney (terminal)
CPT/HCPCS: 36415; 52005; 52332; 74420; 81001; 85025; 87088; C1758; C1769; C1894; C2617; J0690; J1100; J2001; J2250; J2370; J2405; J2704; J3010; J7050; Q9966; 82040; 82247; 82310; 82374; 82435; 82565; 82947; 84075; 84132; 84155; 84295; 84450; 84460; 84520

== ENCOUNTER → 2018-06-20 | Outpatient (CLI) | payer BC ==
--- NOTE | 2018-06-20 16:51 | RADIOLOGY IMAGING REPORT ---
FACILITY: [facility] PATIENT NAME: Ninfa Escalera : 1960 MR: [id number] V: [id number] EXAM DATE: ORDERING PHYSICIAN: TIERNEY HOWELL TECHNOLOGIST: Location: [facility] Patient: Ninfa Escalera : 1960 Visit/Account:[id number] Date of Sevice: 06/20/2018 Exam type: KIDNEY FUNCTION/VASCULAR FLOW History: Atrophy of the right kidney from long-standing distal ureteral obstruction Comparison: May 18, 2018. TECHNIQUE: 10.5 mCi of technetium 99m MAG3 was administered intravenously and multiple sequential dee ges were obtained over the kidneys and time activity curves were generated. Findings: Split renal function is abnormal with 86.6% of the left kidney and 13.4% of the right kidney. This r epresents a change from 80% left kidney and 20% right kidney on the prior study The left kidney renogram curve is normal with the time to peak of three minutes. There is a normal e xcretion curve on the left with time from maximum uptake to T1 half max of 4.3 minutes. The right renogram curve is abnormal with delayed cortical activity and a slow progressive increase o f isotope uptake with a time of maximum uptake of the right kidney of 25 minutes. The excretion curv e is also a relatively flat for the right kidney. Also noted is atrophy of the right kidney relative to the left. The post void images demonstrate right hydronephrosis IMPRESSION: 1. Abnormal split renal function with 86.6% function on the left and 13.4% on the right. This repre sents an interval change from the prior study at which time the function of the left kidney was 80% a nd right kidney 20%. Renogram curve on the left is normal Abnormal renogram curve on the right demonstrating reduced a right renal function and hydronephrosis on the right on the post void images consistent with the history of a long-standing obstruction. Report Dictated By: Roseline Contreras MD at 06/20/2018 4:39 PM Report E-Signed By: Roseline Contreras MD at 06/20/2018 4:46 PM WSN:[email or web address]
== END ==
LOC: NUC 01:57
PROVIDERS: ATTEND Urology
DX: N13.1 Hydronephrosis with ureteral stricture, not elsewhere classified (principal); N26.1 Atrophy of kidney (terminal)
CPT/HCPCS: 78707; A9539; A9562

== ENCOUNTER 2018-08-02 17:40 | Emergency (ER) | payer BC ==
--- NOTE | 2018-08-02 17:53 | ER Report ---
History and Physical Time Seen By MD: 17:53 Hx. of Stated Complaint: PT HAD A R NEPHRECTOMY 2 WEEKS AGO IN [place], HAS HAD SOME PAIN FOR 1 WEEK, UNTIL SHE CALLED HER MD WHO SUGGESTED SHE COM HERE FOR A CT SCAN HPI/ROS CHIEF COMPLAINT: Postop pain HISTORY OF PRESENT ILLNESS: 58-year-old female patient presents to emergency room with complaint of abdominal pain. Patient states that she had her right kidney removed 2 weeks ago. 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 She states that when they remove the kidney that it was functioning at approximately 13%. She states that she did well initially after surgery. She states that approximately a week ago she started having pain in the right lower quadrant. She states there is no redness, no swelling to the incision sites. She denies having any drainage. She states the pain is there all the time. She states that seems to be worse when she takes a deep breath. She states it feels like her breath catches. She states she did call and talk with her student ambassador's, Dr. Gonzales, office. She states she was directed to come emergency room for a CAT scan. She did try to talk with Dr. Carver, urologist to see if he would order the CAT scan. He however was undertaken was unable to do that. She denies having any fevers, chills, nausea, vomiting or diarrhea. She states that eating and drinking does not seem to worsen the pain. She states that nothing seems to help. REVIEW OF SYSTEMS: Respiratory: No cough, no dyspnea. Cardiovascular: No chest pain, no palpitations. Gastrointestinal: As noted above. Musculoskeletal: No back pain. Allergies: Coded Allergies: No Known Drug Allergies (Unverified , 08/02/18) Home Meds Active Scripts Oxycodone Hcl/Acetaminophen (PERCOCET 5-325 MG TABLET) 1 Each Tablet, 1 EACH PO Q4-6H PRN for PAIN, #12 TAB Prov:EVAN SOSA 08/02/18 Reported Medications Hydrocodone Bit/Acetaminophen (NORCO 5-325 TABLET) 1 Each Tablet, 1-2 EACH PO Q6H PRN for PAIN, #20 TAB 06/04/18 Melatonin (Melatonin) 1 Mg Tablet.er, PO HS 12/21/17 Cholecalciferol (Vitamin D3) (VITAMIN D3) 1,000 Unit Tablet, PO DAILY, TAB 12/21/17 Cyanocobalamin (Vitamin B-12) (VITAMIN B-12) 250 Mcg Tablet, PO DAILY 12/21/17 Ascorbic Acid (VITAMIN C) 500 Mg Tablet, PO DAILY, TAB 12/21/17 Multivitamin (MULTIVITAMINS) 1 Each Capsule, 1 EACH PO DAILY, CAPSULE 12/21/17 Fluticasone Prop 50 Mcg Ns (FLONASE 50 MCG NS) 16 Gm Basehor.susp, 2 SPRAYS NS QDAY PRN for SEASONAL ALLERGIES, BOT 12/21/17 Gabapentin (GABAPENTIN) 300 Mg Capsule, 600 MG PO BID, CAPSULE 12/21/17 Bupropion Hcl (BUPROPION XL) 150 Mg Tab.er.24h, 150 MG PO QDAY, #10 TAB 12/21/17 Buspirone Hcl (BUSPIRONE HCL) 15 Mg Tablet, 15 MG PO BID, #10 TAB 12/21/17 Venlafaxine Hcl (EFFEXOR XR) 75 Mg Cap.er.24h, 75 MG PO TID 12/21/17 Febuxostat (ULORIC) 80 Mg Tablet, 80 MG PO HS 12/21/17 Discontinued Reported Medications Docusate Sodium (COLACE) 100 Mg Capsule, 100 MG PO BID, #20 CAPSULE 06/04/18 Oxybutynin Chloride (DITROPAN XL) 10 Mg Tab.er.24, 10 MG PO QDAY PRN for URINARY URGENCY, #30 TAB 06/04/18 Phenazopyridine Hcl (PHENAZOPYRIDINE HCL) 200 Mg Tablet, 200 MG PO TID PRN for BURNING WITH URINATION, #30 TAB 06/04/18 Tamsulosin Hcl (FLOMAX) 0.4 Mg Cap.er.24h, 0.4 MG PO PRN for BLADDER SPASMS, CAP 04/19/18 Ibuprofen (MOTRIN IB) 200 Mg Tablet, 3 TAB PO Q8H, #20 04/19/18 Past Medical/Surgical History Patient has a past medical history of irregular heartbeat, asthma, kidney stone, gout, arthritis, right humeral fracture, seasonal allergies, occasional alcohol use, anxiety, depression. Patient has surgical history of , cystoscopy, stent placement, right nephrectomy, right shoulder surgery. Reviewed Nurses Notes: Yes Hx Smoking: Yes (5-6 CIGS/DAY FOR 30 YEARS) Smoking Status: Light Tobacco Smoker Hx Substance Use Disorder: Yes (PT DRINKS) Hx Alcohol Use: Yes Constitutional Vital Sign - Last 24 Hours 08/02/18 08/02/18 08/02/18 08/02/18 17:45 17:48 18:00 18:10 Temp 98.9 Pulse 80 77 Resp 20 B/P (MAP) 140/87 120/102 (108) 106/79 (88) Pulse Ox 92 93 O2 Delivery Room Air 08/02/18 08/02/18 08/02/18 08/02/18 18:27 18:30 18:35 18:50 Pulse 73 ??? B/P (MAP) 123/73 (90) 105/77 (86) Pulse Ox 91 08/02/18 08/02/18 08/02/18 08/02/18 19:00 19:05 19:20 19:30 Pulse 75 68 B/P (MAP) 102/68 (79) 111/70 (84) Pulse Ox 92 94 08/02/18 08/02/18 08/02/18 08/02/18 19:35 19:40 19:55 20:00 Pulse 66 67 71 B/P (MAP) 101/84 (90) Pulse Ox 95 94 94 08/02/18 08/02/18 08/02/18 08/02/18 20:10 20:25 20:30 20:40 Pulse 69 69 70 B/P (MAP) 114/72 (86) Pulse Ox 95 95 96 08/02/18 08/02/18 20:55 21:01 Pulse ??? 88 Resp 16 B/P (MAP) 138/88 (105) Pulse Ox 92 O2 Delivery Room Air Physical Exam General Appearance: The patient is alert, has no immediate need for airway pr otection and no current signs of toxicity. Respiratory: Chest is non tender, lungs are clear to auscultation. Cardiac: regular rate and rhythm Gastrointestinal: Abdomen is soft and tender in the left lower quadrant, no masses, bowel sounds normal. Musculoskeletal: Neck: Neck is supple and non tender. Extremities have full range of motion and are non tender. Skin: No rashes or lesions. DIFFERENTIAL DIAGNOSIS: After history and physical exam differential diagnosis was considered for abdominal pain including but not limited to appendicitis, cholecystitis, gastritis and urinary tract infection. Also included in the differential is a postop infection, abscess, fluid collection. Medical Decision Making Data Points Result Diagram: 08/02/185 08/02/185 Laboratory Hematology Test 08/02/18 18:15 08/02/18 18:27 Red Blood Count 4.68 M/uL (4.17-5.56) Mean Corpuscular Volume 89.0 fL (80.0-96.0) Mean Corpuscular Hemoglobin 30.4 pg (26.0-33.0) Mean Corpuscular Hemoglobin Concent 34.2 g/dL (32.0-36.0) Red Cell Distribution Width 13.8 % (11.5-14.5) Mean Platelet Volume 7.8 fL (7.2-11.1) Neutrophils (%) (Auto) 64.4 % (39.4-72.5) Lymphocytes (%) (Auto) 27.9 % (17.6-49.6) Monocytes (%) (Auto) 4.7 % (4.1-12.4) Eosinophils (%) (Auto) 2.0 % (0.4-6.7) Basophils (%) (Auto) 1.0 % (0.3-1.4) Nucleated RBC Relative Count (auto) 0.0 /100WBC Neutrophils # (Auto) 5.4 K/uL (2.0-7.4) Lymphocytes # (Auto) 2.3 K/uL (1.3-3.6) Monocytes # (Auto) 0.4 K/uL (0.3-1.0) Eosinophils # (Auto) 0.2 K/uL (0.0-0.5) Basophils # (Auto) 0.1 K/uL (0.0-0.1) Nucleated RBC Absolute Count (auto) 0.00 K/uL Prothrombin Time 12.7 seconds (12.0-14.4) Prothromb Time International Ratio 0.95 Activated Partial Thromboplast Time 29 seconds (23-35) Sodium Level 143 mmol/L (137-145) Potassium Level 3.9 mmol/L (3.5-5.0) Chloride Level 105 mmol/L (98-107) Carbon Dioxide Level 26 mmol/L (22-31) Blood Urea Nitrogen 15 mg/dl (7-18) Creatinine 1.10 mg/dl (0.52-1.04) Glomerular Filtration Rate Calc 51.0 Random Glucose 117 mg/dl (75-110) Calcium Level 9.6 mg/dl (8.4-10.2) Total Bilirubin 0.2 mg/dl (0.2-1.3) Aspartate Amino Transf (AST/SGOT) 25 U/L (0-35) Alanine Aminotransferase (ALT/SGPT) 30 U/L (0-56) Alkaline Phosphatase 114 U/L (0-126) Total Protein 7.7 g/dl (6.3-8.2) Albumin 4.0 g/dl (3.5-5.0) Urine Color Yellow Urine Clarity Cloudy Urine pH 6.0 pH (4.8-9.5) Urine Specific [place] 1.010 Urine Protein Negative mg/dL (NEGATIVE) Urine Glucose (UA) Negative mg/dL (NEGATIVE) Urine Ketones Negative mg/dL (NEGATIVE) Urine Blood Negative (NEGATIVE) Urine Nitrite Negative (NEGATIVE) Urine Bilirubin Negative (NEGATIVE) Urine Urobilinogen Negative mg/dL (0.2-1.9) Urine Leukocyte Esterase Trace (NEGATIVE) Urine RBC 3 /HPF (0-2/HPF) Urine WBC 7 /HPF (0-5/HPF) Urine Squamous Epithelial Cells Many /LPF (</=FEW) Urine Bacteria Negative /HPF (NONE-FEW) Urine Mucus None /HPF (NONE-FEW) Chemistry Test 08/02/18 18:15 08/02/18 18:27 White Blood Count 8.3 k/uL (4.5-11.0) Red Blood Count 4.68 M/uL (4.17-5.56) Hemoglobin 14.2 g/dL (12.0-16.0) Hematocrit 41.7 % (34.0-47.0) Mean Corpuscular Volume 89.0 fL (80.0-96.0) Mean Corpuscular Hemoglobin 30.4 pg (26.0-33.0) Mean Corpuscular Hemoglobin Concent 34.2 g/dL (32.0-36.0) Red Cell Distribution Width 13.8 % (11.5-14.5) Platelet Count 309 K/uL (150-450) Mean Platelet Volume 7.8 fL (7.2-11.1) Neutrophils (%) (Auto) 64.4 % (39.4-72.5) Lymphocytes (%) (Auto) 27.9 % (17.6-49.6) Monocytes (%) (Auto) 4.7 % (4.1-12.4) Eosinophils (%) (Auto) 2.0 % (0.4-6.7) Basophils (%) (Auto) 1.0 % (0.3-1.4) Nucleated RBC Relative Count (auto) 0.0 /100WBC Neutrophils # (Auto) 5.4 K/uL (2.0-7.4) Lymphocytes # (Auto) 2.3 K/uL (1.3-3.6) Monocytes # (Auto) 0.4 K/uL (0.3-1.0) Eosinophils # (Auto) 0.2 K/uL (0.0-0.5) Basophils # (Auto) 0.1 K/uL (0.0-0.1) Nucleated RBC Absolute Count (auto) 0.00 K/uL Prothrombin Time 12.7 seconds (12.0-14.4) Prothromb Time International Ratio 0.95 Activated Partial Thromboplast Time 29 seconds (23-35) Glomerular Filtration Rate Calc 51.0 Calcium Level 9.6 mg/dl (8.4-10.2) Total Bilirubin 0.2 mg/dl (0.2-1.3) Aspartate Amino Transf (AST/SGOT) 25 U/L (0-35) Alanine Aminotransferase (ALT/SGPT) 30 U/L (0-56) Alkaline Phosphatase 114 U/L (0-126) Total Protein 7.7 g/dl (6.3-8.2) Albumin 4.0 g/dl (3.5-5.0) Urine Color Yellow Urine Clarity Cloudy Urine pH 6.0 pH (4.8-9.5) Urine Specific [place] 1.010 Urine Protein Negative mg/dL (NEGATIVE) Urine Glucose (UA) Negative mg/dL (NEGATIVE) Urine Ketones Negative mg/dL (NEGATIVE) Urine Blood Negative (NEGATIVE) Urine Nitrite Negative (NEGATIVE) Urine Bilirubin Negative (NEGATIVE) Urine Urobilinogen Negative mg/dL (0.2-1.9) Urine Leukocyte Esterase Trace (NEGATIVE) Urine RBC 3 /HPF (0-2/HPF) Urine WBC 7 /HPF (0-5/HPF) Urine Squamous Epithelial Cells Many /LPF (</=FEW) Urine Bacteria Negative /HPF (NONE-FEW) Urine Mucus None /HPF (NONE-FEW) Coagulation Test 08/02/18 18:15 Prothrombin Time 12.7 seconds Prothromb Time International Ratio 0.95 Activated Partial Thromboplast Time 29 seconds Urinalysis Test 08/02/18 18:27 Urine Color Yellow Urine Clarity Cloudy Urine pH 6.0 pH (4.8-9.5) Urine Specific [place] 1.010 Urine Protein Negative mg/dL (NEGATIVE) Urine Glucose (UA) Negative mg/dL (NEGATIVE) Urine Ketones Negative mg/dL (NEGATIVE) Urine Blood Negative (NEGATIVE) Urine Nitrite Negative (NEGATIVE) Urine Bilirubin Negative (NEGATIVE) Urine Urobilinogen Negative mg/dL (0.2-1.9) Urine Leukocyte Esterase Trace (NEGATIVE) Urine RBC 3 /HPF (0-2/HPF) Urine WBC 7 /HPF (0-5/HPF) Urine Squamous Epithelial Cells Many /LPF (</=FEW) Urine Bacteria Negative /HPF (NONE-FEW) Urine Mucus None /HPF (NONE-FEW) EKG/Imaging Imaging COMPUTED TOMOGRAPHY OF THE Abdomen and Pelvis with CONTRAST INDICATION: Postop pain. TECHNIQUE: Contiguous axial 3.[address] images were obtained through the abdomen and pelvis after 75 cc [id number]. Coronal and sagittal reformatted images were submitted. COMPARISON: CT abdomen and pelvis May 08, 2018. FINDINGS: Lung bases: Mild atelectasis and/or scar at the lung bases. Liver and hepatic vasculature: No focal liver lesion. Gallbladder and bile ducts: There are numerous gallstones. Spleen: Normal Pancreas: Normal Adrenals: No Kidneys, ureters and bladder: There are small cysts at the otherwise unremarkable left kidney. The bladder is decompressed. Status post right nephrectomy with a small volume of unorganized simple appearing fluid in the nephrectomy bed and stranding in the adjacent fat. Retroperitoneum and aorta: Moderate aortic atherosclerosis. No aneurysm. GI tract, mesentery and peritoneum: No bowel obstruction. No free air. No findings of diverticulitis. There are a few scattered colonic diverticula. Uterus and adnexa: Unremarkable uterus. Bones and soft tissues: No acute osseous abnormality. Multilevel degenerative findings. Minimal stranding in the subcutaneous fat anteriorly on the right and near midline from recent surgery. IMPRESSION: 1. Status post right nephrectomy with small volume of simple appearing unorganized fluid in the nephrectomy bed. 2. Additional chronic findings as above. One of the following dose optimization techniques was utilized in the performance of this exam: Automated exposure control; adjustment of the mA and/or kV according to the patient's size; or use of an iterative reconstruction technique. Specific details can be referenced in the facility's radiology CT exam operational policy. Report Dictated By: Shikha Russo MD at 08/02/2018 7:38 PM Report E-Signed By: Shikha Russo MD at 08/02/2018 7:49 PM ED Course/Re-evaluation ED Course Patient was admitted to examine, history of physical obtained. Differential diagnoses were considered. On examination patient had tenderness in the right lower quadrant. Her incisions from her nephrectomy were well approximated, there is no erythema, no discharge noted. Patient did have some bruising to the lateral side of the right lower quadrant, and had some tenderness there. A CBC, CMP were done. White count was normal and patient had improved creatinine from her previous lab work, going from 1.2-1.[address] scan of abdomen and pelvis is done with contrast. There are no acute abnormality is found. They did note that the right kidney was absent but that the patient did have free fluid in the pelvis that was not organized. There are no signs of abscess. I discussed the case with Dr. Gonzales, urologist, at [facility] [place]. He felt the patient could be discharged home and follow-up with him as previously directed. I discussed this with the patient. Patient states she's been having pain that was not controlled with her hydrocodone. I'll go ahead and have her stop taking that and give her some Percocet and will see if that doesn't improve her pain. If she has persistent pain over her follow-up with primary care provider. Patient verbalized understanding and agreement with plan. Decision to Disposition Date: Aug 02, 2018 Decision to Disposition Time: 20:50 Depart Departure Latest Vital Signs Vital Signs Date Time Temp Pulse Resp B/P (MAP) Pulse Ox O2 Delivery O2 Flow Rate FiO2 08/02/18 21:01 88 16 138/88 (105) 92 Room Air 08/02/18 17:45 98.9 Impression: Primary Impression: Abdominal pain Condition: Improved Disposition: HOME OR SELF-CARE Referrals: NUNU ANDREW (PCP) New Scripts Oxycodone Hcl/Acetaminophen (PERCOCET 5-325 MG TABLET) 1 Each Tablet 1 EACH PO Q4-6H PRN for PAIN, #12 TAB Prov: EVAN SOSA 08/02/18 Patient Instructions: Abdominal Pain (ED) Additional Instructions: Increase fluid intake. Get plenty of rest. Continue with normal medications. Follow up with Dr. Gonzales as previously directed. Return to the ER if condition worsens. I believe that the cause of the pain is free fluid in the abdomen which is caused by the surgery. Stop taking the Hydrocodone/acetaminophen and we will do some Percocet. Problem Qualifiers Primary Impression: Abdominal pain Abdominal location: right lower quadrant Qualified Codes: R10.31 - Right lower quadrant pain EVAN SOSA Aug 02, 2018 17:53
[2018-08-02 18:24] LABS: PLATELET COUNT, AUTOMATED 309 K/uL (150-450)
[2018-08-02 18:31] LABS: INR 0.95
[2018-08-02] MEDS ORDERED: IOPAMIDOL 76% 75 ML INFUS BTL 75 ML ONE (18:44)
[2018-08-02] MEDS ORDERED: NS(*) 0.9% 500 ML BAG 500 ML IV ONE (18:45)
--- NOTE | 2018-08-02 19:52 | RADIOLOGY IMAGING REPORT ---
FACILITY: [facility] [place] PATIENT NAME: Ninfa Escalera : 1960 MR: [id number] V: [id number] EXAM DATE: ORDERING PHYSICIAN: EVAN SOSA TECHNOLOGIST: Location: [facility] Patient: Ninfa Escalera : 1960 Visit/Account:[id number] Date of Sevice: 08/02/2018 COMPUTED TOMOGRAPHY OF THE Abdomen and Pelvis with CONTRAST INDICATION: Postop pain. TECHNIQUE: Contiguous axial 3.[address] images were obtained through the abdomen and pelvis after 75 c c Isovue-[id number]. Coronal and sagittal reformatted images were submitted. COMPARISON: CT abdomen and pelvis May 08, 2018. FINDINGS: Lung bases: Mild atelectasis and/or scar at the lung bases. Liver and hepatic vasculature: No focal liver lesion. Gallbladder and bile ducts: There are numerous gallstones. Spleen: Normal Pancreas: Normal Adrenals: No Kidneys, ureters and bladder: There are small cysts at the otherwise unremarkable left kidney. The b ladder is decompressed. Status post right nephrectomy with a small volume of unorganized simple appea ring fluid in the nephrectomy bed and stranding in the adjacent fat. Retroperitoneum and aorta: Moderate aortic atherosclerosis. No aneurysm. GI tract, mesentery and peritoneum: No bowel obstruction. No free air. No findings of diverticulitis. There are a few scattered colonic diverticula. Uterus and adnexa: Unremarkable uterus. Bones and soft tissues: No acute osseous abnormality. Multilevel degenerative findings. Minimal stran ding in the subcutaneous fat anteriorly on the right and near midline from recent surgery. IMPRESSION: 1. Status post right nephrectomy with small volume of simple appearing unorganized fluid in the nephr ectomy bed. 2. Additional chronic findings as above. One of the following dose optimization techniques was utilized in the performance of this exam: Autom ated exposure control; adjustment of the mA and/or kV according to the patient's size; or use of an i terative reconstruction technique. Specific details can be referenced in the facility's radiology C T exam operational policy. Report Dictated By: Shikha Russo MD at 08/02/2018 7:38 PM Report E-Signed By: Shikha Russo MD at 08/02/2018 7:49 PM [id number]
[2018-08-02] MEDS ORDERED: OXYC-865 PO (20:48)
[2018-08-02] MEDS ORDERED: oxyCODONE/ACETAMIN 5/325MG TH 2 TAB/BOTTLE PO ONE (20:55)
[2018-08-02 21:01] VITALS: BP 138/88
== END 2018-08-02 21:03 | disposition home or self-care (01) ==
LOC: ER 17:48
DX: R10.31 Right lower quadrant pain (principal)
CPT/HCPCS: 74177; 81001; 85025; 85610; 85730; 87088; 99284; J7040; Q9967; 82040; 82247; 82310; 82374; 82435; 82565; 82947; 84075; 84132; 84155; 84295; 84450; 84460; 84520

== ENCOUNTER 2018-12-03 12:36 | Emergency (ER) | payer BC ==
[~2018-12-03 12:36] MED LIST changes: -HYDR-4309 PO; +HYDR-653 PO; +OXYC-865 PO
--- NOTE | 2018-12-03 12:38 | ER Report ---
History and Physical Time Seen By MD: 12:37 HPI/ROS CHIEF COMPLAINT: Requesting alcohol detox HISTORY OF PRESENT ILLNESS: Patient is a 58-year-old female with past medical history for alcohol abuse with a fairly long period of sobriety over the past 3 years began drinking again this past October. She was referred to the emergency department by her primary care provider Nunu Mchugh. History is also taken from the patient's [id number] as well as mother. Patient went through alcohol rehabilitation around 3-1/2 years ago and had a decent period of sobriety until this past October. Patient and family state that she's had multiple stressors including breakup with her ex-, work related stress and also issues with her daughter who seems to have some substance abuse problems as well. Patient's last drink was this morning approximately a pint of vodka which appears to be her daily routine. She denies any other type of illi cit drugs. She denies ever having history of delirium tremens. He reports no other symptoms. Patient is depressed without specific suicidal plan. REVIEW OF SYSTEMS: Respiratory: No cough, no dyspnea. Cardiovascular: No chest pain, no palpitations. Gastrointestinal: No vomiting, no abdominal pain. Musculoskeletal: No back pain. Allergies: Coded Allergies: No Known Drug Allergies (Unverified , 08/02/18) Home Meds Active Scripts Oxycodone Hcl/Acetaminophen (PERCOCET 5-325 MG TABLET) 1 Each Tablet, 1 EACH PO Q4-6H PRN for PAIN, #12 TAB Prov:EVAN SOSA REGULATORY ADMINISTRATOR 08/02/18 Reported Medications Hydrocodone Bit/Acetaminophen (NORCO 5-325 TABLET) 1 Each Tablet, 1-2 EACH PO Q6H PRN for PAIN, #20 TAB 06/04/18 Melatonin (Melatonin) 1 Mg Tablet.er, PO HS 12/21/17 Cholecalciferol (Vitamin D3) (VITAMIN D3) 1,000 Unit Tablet, PO DAILY, TAB 12/21/17 Cyanocobalamin (Vitamin B-12) (VITAMIN B-12) 250 Mcg Tablet, PO DAILY 12/21/17 Ascorbic Acid (VITAMIN C) 500 Mg Tablet, PO DAILY, TAB 12/21/17 Multivitamin (MULTIVITAMINS) 1 Each Capsule, 1 EACH PO DAILY, CAPSULE 12/21/17 Fluticasone Prop 50 Mcg Ns (FLONASE 50 MCG NS) 16 Gm [place].susp, 2 SPRAYS NS QDAY PRN for SEASONAL ALLERGIES, BOT 12/21/17 Gabapentin (GABAPENTIN) 300 Mg Capsule, 600 MG PO BID, CAPSULE 12/21/17 Bupropion Hcl (BUPROPION XL) 150 Mg Tab.er.24h, 150 MG PO QDAY, #10 TAB 12/21/17 Buspirone Hcl (BUSPIRONE HCL) 15 Mg Tablet, 15 MG PO BID, #10 TAB 12/21/17 Venlafaxine Hcl (EFFEXOR XR) 75 Mg Cap.er.24h, 75 MG PO TID 12/21/17 Febuxostat (ULORIC) 80 Mg Tablet, 80 MG PO HS 12/21/17 Past Medical/Surgical History Patient has a past medical history of irregular heartbeat, asthma, kidney stone, gout, arthritis, right humeral fracture, seasonal allergies, occasional alcohol use, anxiety, depression. Patient has surgical history of , cystoscopy, stent placement, right nephrectomy, right shoulder surgery. Hx Smoking: Yes (5-6 CIGS/DAY FOR 30 YEARS) Smoking Status: Light Tobacco Smoker Hx Substance Use Disorder: No (PT DRINKS) Hx Alcohol Use: Yes Constitutional Vital Sign - Last 24 Hours 12/03/18 12:49 Pulse 83 Resp 16 B/P (MAP) 108/89 Pulse Ox 87 O2 Delivery Room Air Physical Exam General Appearance: The patient is alert, has no immediate need for airway protection and no signs of toxicity. Eyes: Pupils equal and round no pallor or injection. ENT, Mouth: Mucous membranes are moist. Respiratory: There are no retractions, lungs are clear to auscultation. Cardiovascular: Regular rate and rhythm. Gastrointestinal: Abdomen is soft and non tender, no masses, bowel sounds normal. Neurological: Awake and alert Skin: Warm and dry, no rashes. Musculoskeletal: Neck is supple non tender. Extremities are nontender, nonswollen and have full range of motion. Medical Decision Making Data Points Result Diagram: 12/03/18 1306 12/03/18 1306 Laboratory Hematology Test 12/03/18 13:06 Red Blood Count 4.68 M/uL (4.17-5.56) Mean Corpuscular Volume 96.2 fL (80.0-96.0) Mean Corpuscular Hemoglobin 32.4 pg (26.0-33.0) Mean Corpuscular Hemoglobin Concent 33.7 g/dL (32.0-36.0) Red Cell Distribution Width 19.8 % (11.5-14.5) Mean Platelet Volume 8.4 fL (7.2-11.1) Neutrophils (%) (Auto) 52.3 % (39.4-72.5) Lymphocytes (%) (Auto) 34.1 % (17.6-49.6) Monocytes (%) (Auto) 10.4 % (4.1-12.4) Eosinophils (%) (Auto) 1.8 % (0.4-6.7) Basophils (%) (Auto) 1.4 % (0.3-1.4) Nucleated RBC Relative Count (auto) 0.2 /100WBC Neutrophils # (Auto) 2.1 K/uL (2.0-7.4) Lymphocytes # (Auto) 1.4 K/uL (1.3-3.6) Monocytes # (Auto) 0.4 K/uL (0.3-1.0) Eosinophils # (Auto) 0.1 K/uL (0.0-0.5) Basophils # (Auto) 0.1 K/uL (0.0-0.1) Nucleated RBC Absolute Count (auto) 0.01 K/uL Sodium Level 148 mmol/L (137-145) Potassium Level 3.8 mmol/L (3.5-5.0) Chloride Level 109 mmol/L (98-107) Carbon Dioxide Level 25 mmol/L (22-31) Blood Urea Nitrogen 8 mg/dl (7-18) Creatinine 1.10 mg/dl (0.52-1.04) Glomerular Filtration Rate Calc 51.0 Random Glucose 71 mg/dl (75-110) Calcium Level 8.8 mg/dl (8.4-10.2) Magnesium Level 1.8 mg/dl (1.7-2.2) Total Bilirubin 0.5 mg/dl (0.2-1.3) Aspartate Amino Transf (AST/SGOT) 118 U/L (0-35) Alanine Aminotransferase (ALT/SGPT) 50 U/L (0-56) Alkaline Phosphatase 106 U/L (0-126) Total Protein 7.4 g/dl (6.3-8.2) Albumin 4.2 g/dl (3.5-5.0) Thyroid Stimulating Hormone (TSH) 0.16 uIU/ml (0.46-4.68) Salicylates Level < 10 mg/L Salicylate Last Dose Date unk Acetaminophen Level < 10 ug/ml Serum Alcohol 451 mg/dl Chemistry Test 12/03/18 13:06 White Blood Count 4.0 k/uL (4.5-11.0) Red Blood Count 4.68 M/uL (4.17-5.56) Hemoglobin 15.2 g/dL (12.0-16.0) Hematocrit 45.0 % (34.0-47.0) Mean Corpuscular Volume 96.2 fL (80.0-96.0) Mean Corpuscular Hemoglobin 32.4 pg (26.0-33.0) Mean Corpuscular Hemoglobin Concent 33.7 g/dL (32.0-36.0) Red Cell Distribution Width 19.8 % (11.5-14.5) Platelet Count 96 K/uL (150-450) Mean Platelet Volume 8.4 fL (7.2-11.1) Neutrophils (%) (Auto) 52.3 % (39.4-72.5) Lymphocytes (%) (Auto) 34.1 % (17.6-49.6) Monocytes (%) (Auto) 10.4 % (4.1-12.4) Eosinophils (%) (Auto) 1.8 % (0.4-6.7) Basophils (%) (Auto) 1.4 % (0.3-1.4) Nucleated RBC Relative Count (auto) 0.2 /100WBC Neutrophils # (Auto) 2.1 K/uL (2.0-7.4) Lymphocytes # (Auto) 1.4 K/uL (1.3-3.6) Monocytes # (Auto) 0.4 K/uL (0.3-1.0) Eosinophils # (Auto) 0.1 K/uL (0.0-0.5) Basophils # (Auto) 0.1 K/uL (0.0-0.1) Nucleated RBC Absolute Count (auto) 0.01 K/uL Glomerular Filtration Rate Calc 51.0 Calcium Level 8.8 mg/dl (8.4-10.2) Magnesium Level 1.8 mg/dl (1.7-2.2) Total Bilirubin 0.5 mg/dl (0.2-1.3) Aspartate Amino Transf (AST/SGOT) 118 U/L (0-35) Alanine Aminotransferase (ALT/SGPT) 50 U/L (0-56) Alkaline Phosphatase 106 U/L (0-126) Total Protein 7.4 g/dl (6.3-8.2) Albumin 4.2 g/dl (3.5-5.0) Thyroid Stimulating Hormone (TSH) 0.16 uIU/ml (0.46-4.68) Salicylates Level < 10 mg/L Salicylate Last Dose Date unk Acetaminophen Level < 10 ug/ml Serum Alcohol 451 mg/dl Toxicology Test 12/03/18 13:06 Salicylates Level < 10 mg/L Salicylate Last Dose Date unk Acetaminophen Level < 10 ug/ml Serum Alcohol 451 mg/dl EKG/Imaging EKG Interpretation EKG shows sinus rhythm with ventricular rate of 86 bpm. Monitor Interpretation: Normal Sinus Rhythm ED Course/Re-evaluation Clinical Indication for ER IV: Hydration, IV Access ED Course 12/03/2018 1:02:25 pm plan at this time will be medical screening evaluation followed by voluntary admission for alcohol detox and treatment for depression. Decision to Disposition Date: Dec 03, 2018 Decision to Disposition Time: 14:24 Depart Departure Latest Vital Signs Vital Signs Date Time Temp Pulse Resp B/P (MAP) Pulse Ox O2 Delivery O2 Flow Rate FiO2 12/03/18 12:49 83 16 108/89 87 Room Air Impression: Primary Impression: Alcohol intoxication Additional Impression: Alcohol abuse Condition: Improved Disposition: [facility] (to Dr Presley) Referrals: NUNU MCHUGH REGULATORY ADMINISTRATOR (PCP) Problem Qualifiers Primary Impression: Alcohol intoxication Complication of substance-induced condition: uncomplicated Qualified Codes: F10.920 - Alcohol use, unspecified with intoxication, uncomplicated ROSA CHERRY MD Dec 03, 2018 12:38
[2018-12-03 13:19] LABS: PLATELET COUNT, AUTOMATED 96 K/uL (150-450)
--- NOTE | 2018-12-03 14:00 | EKG ---
FACILITY: [facility] - [place], [place] PATIENT NAME: PANCHO LOZANO : [id number] MR: [id number] V: [id number] EXAM DATE: ORDERING PHYSICIAN: ROSA CHERRY TECHNOLOGIST: ALEX Mendiola Reason : ETOH Blood Pressure : / mmHG Vent. Rate : 086 BPM Atrial Rate : 086 BPM P-R Int : 174 ms QRS Dur : 094 ms QT Int : 386 ms P-R-T Axes : 011 -50 013 degrees QTc Int : 461 ms Sinus rhythm Left axis Unusual R wave progression anteriorly Abnormal ECG No previous ECGs available Confirmed by PETE LANDIS ([id number]) on 12/04/2018 6:34:36 AM Referred By: DILIP Confirmed By:PETE LANDIS
[2018-12-03 15:07] VITALS: BP 127/69
[2018-12-03] MEDS ORDERED: TOBROD OU (18:35)
== END 2018-12-03 15:20 ==
LOC: ER 12:51
DX: F10.220 Alcohol dependence with intoxication, uncomplicated (principal); Y90.8 Blood alcohol level of 240 mg/100 ml or more; F17.210 Nicotine dependence, cigarettes, uncomplicated; R94.31 Abnormal electrocardiogram [ECG] [EKG]
CPT/HCPCS: 80305; 80320; 80329; 81001; 82040; 82247; 82310; 82374; 82435; 82565; 82947; 83735; 84075; 84132; 84155; 84295; 84443; 84450; 84460; 84520; 85025; 93005; 99284

== ENCOUNTER 2018-12-03 14:34 | Inpatient (IN) | payer BC ==
[~2018-12-03] VITALS: Ht 165.1 cm; Wt 77.1 kg
[2018-12-03] MEDS ORDERED: NICOTINE CARTRIDGE 1 EA PO PRN (16:45)
[2018-12-03] MEDS ORDERED: MAG HYD/AL HYD/SIMETH 30ML UDC PO PRN (16:45)
[2018-12-03 17:11] VITALS: BP 110/70
[2018-12-03] MEDS ORDERED: LOPERAMIDE HCL 2 MG CAP PO PRN (17:35)
[2018-12-03] MEDS ORDERED: TOBROD OU (18:35)
[2018-12-03 19:10] VITALS: BP 110/75
[2018-12-03] MEDS: DIAZEPAM 10 MG TAB PO PRN (20:55)
[2018-12-04 03:17] VITALS: BP 114/69
[2018-12-04 05:55] VITALS: BP 123/80
[2018-12-04] MEDS: FOLIC ACID 1 MG TAB PO SCH (08:23)
[2018-12-04] MEDS: THIAMINE HCL 100 MG TAB PO SCH (08:23)
[2018-12-04] MEDS: MULTIVITAMINS PO SCH (08:23)
[2018-12-04] MEDS ORDERED: PATIENT'S OWN MED OP PRN (09:40)
[2018-12-04 10:15] VITALS: BP 131/73
[2018-12-04] MEDS: VENLAFAXINE XR 75 MG CAPCR PO SCH (10:51)
[2018-12-04] MEDS: GABAPENTIN 300 MG CAP PO SCH ×3 (10:51→21:11)
[2018-12-04] MEDS: KETOTIFEN FUMARATE OP PRN ×2 (11:00→21:12)
[2018-12-04] MEDS: CARBOXYMETHYL OU PRN ×2 (11:00→21:12)
[2018-12-04] MEDS: GLYCERIN OU PRN ×2 (11:00→21:12)
[2018-12-04 14:30] VITALS: BP 124/88
[2018-12-04] MEDS ORDERED: INFLUENZA VIRUS VAC 0.5ML SYR IM ONLY ONE (14:40)
[2018-12-04] MEDS ORDERED: LOPERAMIDE HCL 2 MG CAP PO ONE (14:40)
[2018-12-04] MEDS ORDERED: LOPERAMIDE HCL 2 MG CAP PO PRN (14:40)
[2018-12-04] MEDS: DIAZEPAM 10 MG TAB PO PRN ×2 (14:59→21:11)
[2018-12-04 18:40] VITALS: BP 138/88
[2018-12-04] MEDS: NICOTINE INH SYSTEM 10 MG/INH INH PRN (21:12)
[2018-12-05 02:50] VITALS: BP 126/90
[2018-12-05] MEDS: DIAZEPAM 10 MG TAB PO PRN ×2 (03:03→21:24)
--- NOTE | 2018-12-05 08:17 | SCHAAF H&P ---
DATE OF ADMISSION: December 03, 2018 ATTENDING PHYSICIAN Donato Presley MD Patient was seen at approximately 0900 hours on December 04, 2018, for note concerning this dictation. PRESENTING PROBLEM, CHIEF COMPLAINT Patient here for alcohol detoxification. HISTORY OF PRESENT ILLNESS This is a very pleasant 58-year-old female who reports a relatively long period of sobriety lasting approximately 3-1/2 years. The patient then reports in October 2018 the patient was under many identifiable stressors and made the mistake of relapsing. The patient has been drinking heavily since. Patient reports some of the specific stressors are she last year dealt with a large kidney stone which results in a right nephrectomy. Patient reports her mother has been sick as well and her and her mother have both been raising the patient's 9-year-old granddaughter as she continues to worry about her daughter and her , who were caught using methamphetamine and did retirement time and are not doing well. Patient also reports being for three years but remaining in an overall good relationship with her ex-. However, this has been deteriorating lately as well at times. Patient again reporting drinking heavily. She has been on Effexor for five years. She says this overall has been helpful for her in the absence of alcohol but patient notably went off of this abruptly when she started drinking heavily. Other than mild frustration and depressive symptoms related to identifiable stressors and alcohol withdrawal, patient denying any other current symptoms of psychiatric concern. MENTAL HEALTH HISTORY The patient has been here for detox in the remote past; it appears to be around 2006. Patient was on the Unit. Patient has been to rehab x1 in the past. She has been to AA in the past, not going lately. Currently receives her outpatient meds through Dr. Mchugh but does see an outpatient therapist as well. She has no history of suicide attempt. FAMILY PSYCHIATRIC HISTORY The patient reports her grandmother on her father's side suffered from depression and she reports heavy alcoholism throughout her father's side of the family. Patient reports her brother used drugs and is now clean. Her daughter using drugs and alcohol as well. No suicides in the genetic family history are known. PAST MEDICAL HISTORY Significant for right shoulder surgery, which has been less than fully successful. Patient had a right nephrectomy as well last year. Patient currently recovering from what appears to be some recent bout of conjunctivitis. Patient denies any allergies to any medications. SOCIAL HISTORY The patient was born in [place], [place]. She was raised all over as her father was a professor and traveled with his work. The parents were at the time of her . They did divorce when she was about 18 years old. Her father is now . She reports a good childhood overall growing up. She has one brother and one sister, who are both older. She is a high school graduate. 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 She has been x1, after 30 years. She has two adult children. Currently living here alone in [place]. Her mother lives in [place] as well and they have been together raising her 9-year-old granddaughter. LEGAL HISTORY Significant for two DUIs in the past. SUBSTANCE ABUSE HISTORY Significant for ongoing alcoholism, which remains her #1 drug of choice. She briefly experimented with cannabis and cocaine in her remote past. PHYSICAL EXAMINATION Please see emergency room note. Notable for 58-year-old female. No acute medical distress. LABORATORY DATA Critically high blood alcohol level of 451 upon arrival. Patient's drug screen is negative for other substances of abuse. Patient's urinalysis is unremarkable. Chemistry panel is notable for TSH low at 0.16, likely related to the current state of alcohol intoxication. Creatinine mildly elevated at 1.10 and AST elevated at 118 with a normal ALT and total bilirubin within normal limits. CBC notable for white blood cells 4.0, low, and MCV slightly elevated at 96.2. Platelet count low at 96. MENTAL STATUS EXAMINATION GENERAL APPEARANCE, BEHAVIOR AND ATTITUDE: This is a cooperative, pleasant 58-year-old female currently being treated for alcohol withdrawal at time of interval. No gross psychomotor agitation or retardation noted. Patient making good eye contact. No bizarre mannerism of tics and interacting well. Nontearful. SPEECH: Largely within normal limits, may be slow to some degree. MOOD: Described as frustrated. AFFECT: Mildly constricted and mood-congruent. THOUGHT PROCESSES: Appear goal-directed and logical. Patient indicating the desire to get through alcohol withdrawal and continue to abstain. No loose associations or flight of ideas. THOUGHT CONTENT: Free of auditory or visual hallucinations, ideas of reference, thought broadcastings, delusions, obsessions or compulsions and patient adamantly denying suicidal or homicidal ideations. SENSORIUM: Clear. COGNITION: Alert and oriented to person, place, time and situation. MEMORY: Immediate, recent and remote estimated intact. INTELLIGENCE: Average, based on interview. INSIGHT AND JUDGMENT: Considered grossly intact in the absence of alcohol use. Patient presenting voluntarily, accompanied by family members for treatment. ASSESSMENT This is a pleasant 58-year-old female who has had relatively long periods of sobriety in the past. Patient currently drinking very heavily over the last month or so. We will continue to treat alcohol withdrawal to completion and look for ways for successful abstinence upon discharge and at this time we will likely re-start long-term psychiatric medication. DIAGNOSES PER DSM V 1. Alcohol intoxication. 2. Alcohol withdrawal. 3. Alcohol use disorder, severe. 4. Adjustment disorder with depressed mood secondary to multiple identifiable stressors and like history of persisting depressive disorder. PLAN 1. Admit to the Unit. 2. Necessary precautions will be implemented. 3. The patient will participate in individual and group therapy. 4. Medications will be titrated and used accordingly. We will treat alcohol withdrawal with Diazepam. 5. Collateral information to be obtained as necessary. 6. Estimated length of stay 3-5 days. MTDD
[2018-12-05] MEDS: FOLIC ACID 1 MG TAB PO SCH (08:26)
[2018-12-05] MEDS: VENLAFAXINE XR 75 MG CAPCR PO SCH (08:26)
[2018-12-05] MEDS: GABAPENTIN 300 MG CAP PO SCH ×3 (08:27→21:24)
[2018-12-05] MEDS: MULTIVITAMINS PO SCH (08:27)
[2018-12-05] MEDS: THIAMINE HCL 100 MG TAB PO SCH (08:27)
[2018-12-05] MEDS: CARBOXYMETHYL OU PRN ×2 (08:29→21:28)
[2018-12-05] MEDS: GLYCERIN OU PRN ×2 (08:29→21:28)
[2018-12-05] MEDS: KETOTIFEN FUMARATE OP PRN ×2 (08:29→21:28)
--- NOTE | 2018-12-05 10:32 | BHS Progress Note ---
[facility] - Subjective Progress Notes Subjective Mood improving, alcohol withdrawal ongoing, appetite improving, No other concerns. Suicidal Ideation: None Homicidal Ideation: None [facility] - Objective Physical Exam Vital Signs Hematology Test 12/03/18 17:53 Troponin I < 0.012 ng/ml Chemistry Test 12/03/18 17:53 Troponin I < 0.012 ng/ml Vital Signs Date Time Temp Pulse Resp B/P (MAP) Pulse Ox O2 Delivery O2 Flow Rate FiO2 12/05/18 02:50 99.2 107 15 126/90 (102) 90 Room Air 12/04/18 05:55 1.0 Muscle Strength and Tone: WNL Gait and Station: Steady [facility] Medications Reviewed: Side Effects, Benefits of Medication, Risks Allergies Reviewed: Yes Mental Status Exam General Appearance: Casual, Well Groomed, Good Eye Contact, Cooperative, Polite, Good Interaction, Tearful (breifly); No Psychomotor Agitation, No Psychomotor Retardation Speech: Clear, Spontaneous, Normal Rate, Normal Rhythm, Normal Volume, Normal Tone Mood: Dysthmic/Depressed (mood improving) Affect: Full and Appropriate, Calm; No Withdrawn; Tearful; No Anxious, No Agitated Thought Process: Organized, Logical, Goal Directed; No Loose Associations, No Flight of Ideas Thought Content: No Suicidal Ideation, No Homicidal Ideation, No Delusions, No Auditory Halllucinations, No Visual Hallucinations, No Thought Broadcasting, No Ideas of Reference, No Obsessions, No Compulsions Sensorium: Clear Cognition: Alert & Oriented-Person, Alert & Oriented-Place, Alert & Oriented- Time, Mmnkz-Uhkprorr-Visckftoo Memory: Immediate, Recent, Remote Intelligence: Average Insight Judgment: Fair (in absence of alcohol) [facility] Assessment and Plan [id number] Encounter Date: Dec 05, 2018 [id number] Encounter Time: 09:30 [facility] Plan: Necessary Precautions, Individual/Group Therapy, Admin/Titrate Meds, Educate Patient Tobacco Medications: Not Appropriate Condition Multpiple Antipsychotics Used: No Problems: (1) Alcohol withdrawal Status: Acute (2) Adjustment disorder with depressed mood Status: Acute (3) Alcohol use disorder, severe, dependence Status: Chronic Condition 1. finalize plans for discharge tomorrow. 2. continue treatment. Problem Qualifiers (1) Alcohol withdrawal: Complication of substance-induced condition: uncomplicated Qualified Codes: F10.230 - Alcohol dependence with withdrawal, uncomplicated LUANN FERNANDES MD Dec 05, 2018 10:32
[2018-12-05 12:30] VITALS: BP 128/92
[2018-12-05 20:30] VITALS: BP 130/80
[2018-12-06 02:00] VITALS: BP 123/93
[2018-12-06] MEDS ORDERED: IBUPROFEN 200 MG TAB PO PRN (06:15)
[2018-12-06] MEDS: VENLAFAXINE XR 75 MG CAPCR PO SCH (08:09)
[2018-12-06] MEDS: FOLIC ACID 1 MG TAB PO SCH (08:09)
[2018-12-06] MEDS: MULTIVITAMINS PO SCH (08:10)
[2018-12-06] MEDS: GABAPENTIN 300 MG CAP PO SCH ×2 (08:10→14:36)
[2018-12-06] MEDS: THIAMINE HCL 100 MG TAB PO SCH (08:10)
[2018-12-06] MEDS ORDERED: CARB1DRO2 OP (10:16)
[2018-12-06] MEDS ORDERED: NIC10R INH (10:20)
[2018-12-06] MEDS: CARBOXYMETHYL OU PRN (10:21)
[2018-12-06] MEDS: GLYCERIN OU PRN (10:21)
[2018-12-06] MEDS ORDERED: NICOTROL CARTRIDGE PO (10:21)
[2018-12-06] MEDS ORDERED: [UNRECOGNIZED DRUG - CODE] OP (10:22)
[2018-12-06 14:08] VITALS: BP 132/89
[2018-12-06] MEDS: NICOTINE INH SYSTEM 10 MG/INH INH PRN (15:56)
--- NOTE | 2018-12-08 02:16 | SCHAAF DISCHARGE ---
DATE OF ADMISSION: December 03, 2018 DATE OF DISCHARGE: December 06, 2018 ATTENDING PHYSICIAN Donato Presley MD Patient was seen at approximately 1000 hours on 06 December 2018 for note concerning this dictation. FINAL DIAGNOSES 1. Alcohol use disorder, severe. 2. Alcohol withdrawal, considered complete. 3. Adjustment disorder with depressed mood versus persisting depressive disorder. 4. Patient having supportive relationship with family members. REASON FOR ADMISSION This is a very pleasant, cooperative 58-year-old female admitted for alcohol intoxication and pending alcohol withdrawal. Patient has relatively long periods of sobriety and appears to be an accurate historian overall. Patient reports accumulation of stressors resulted in relapse over the last one month. Patient's alcohol withdrawal was treated to completion on the unit, patient remaining very cooperative throughout stay, and took an active role in her treatment. Progress was made in resuming patient's medications, including Neurontin and Effexor, which had been helpful in the past. Again, patient's alcohol withdrawal was treated to completion. Mood improved, and patient discharged to home. Please see history and physical for further details. PHYSICAL EXAMINATION Please see emergency room note. Notable for cooperative 58-year-old female with critically high blood alcohol levels at the time of admission. Patient in no acute medical distress, with vital signs at the time of admission showing temperature 99.1, pulse 83, respiratory rate 16, blood pressure 108/89 and pulse oximetry 87% on room air. At the time of discharge from [facility], vital signs showed temperature 99.3, pulse 83, respiratory rate 16, blood pressure 132/89 and pulse oximetry of 90% on room air. LABORATORY DATA At the time of admission, CBC notable for white blood cells low at 4.0, MCV elevated at 96.2, platelet count low at 96. CMP notable for AST elevated at 118, and largely unremarkable CMP. TSH 0.16 and low. Urinalysis unremarkable. Toxicology screen negative for substances of abuse, with a serum alcohol level of 451 at the time of admission. Troponins were negative. MENTAL STATUS EXAMINATION GENERAL APPEARANCE, BEHAVIOR AND ATTITUDE: At the time of discharge, this is a very pleasant and cooperative 58-year-old female who appears stated age, well groomed, making good eye contact. No periods of tearfulness. No bizarre mannerisms or tics. Patient interacting well. SPEECH: Within normal limits. Regular rate, rhythm, volume and tone. MOOD: Described as good. . AFFECT: Full and bright. THOUGHT PROCESSES: Logical and goal-directed; no loose associations or flight of ideas. THOUGHT CONTENT: Free of auditory or visual hallucinations, ideas of reference, thought broadcastings, delusions, obsessions or compulsions. The patient is adamantly denying suicidal or homicidal ideation. SENSORIUM: Clear. COGNITION: Alert and oriented to person, place, time and situation. MEMORY: Immediate, recent and remote estimated intact. INTELLIGENCE: Average, based on interview. INSIGHT AND JUDGMENT: Considered grossly intact in the absence of alcohol use. . RESULTS OF TESTING Imaging: None. Laboratory data: See above. CONSULTATIONS None. TREATMENT Patient received medications, participated in individual and group therapy. HOSPITAL COURSE Patient was very calm, pleasant and cooperative throughout her stay. Alcohol withdrawal was treated to completion, considered mild to moderate in nature. Patient was restarted on Effexor with good results, and patient continued to improve, took an active role in her treatment. CONDITION OF PATIENT ON DISCHARGE Stable. Considered a minimal risk to herself or others and appropriate for ongoing outpatient care in the absence of alcohol use. DISPOSITION The patient was discharged to home. She would follow up with Shiela Mchugh and Ninfa Rios, given the crisis line should symptoms return. Patient would attend AA as well. Medications at time of discharge included gabapentin 300 mg three times a day; multivitamin with minerals daily; Effexor XR 75 mg every a.m.; Refresh eye drops; nicotine replacement therapy over the counter (patient encouraged to stop smoking), and [place] eye drops, patient's own and would continue. Patient could continue buspirone 15 mg every a.m. as well. Vitamin D3, vitamin B12, and vitamin C patient could take at home. Patient would also continue Uloric 80 mg at bedtime. Patient would abstain from alcohol. The risks, benefits and alternatives of the above discharge plan were discussed. Informed consent was given to proceed with the above discharge plan by this competent patient. CHELSEY
== END 2018-12-06 16:05 | disposition home or self-care (01) | DRG 897 ==
LOC: BHS 14:34
PROVIDERS: ADMIT Psychiatry & Neurology Psychiatry; ATTEND Psychiatry & Neurology Psychiatry
DX: F10.230 Alcohol dependence with withdrawal, uncomplicated (principal); F43.21 Adjustment disorder with depressed mood; F17.210 Nicotine dependence, cigarettes, uncomplicated; F34.1 Dysthymic disorder; Z63.79 Other stressful life events affecting family and household; Z81.8 Family history of other mental and behavioral disorders; Z81.1 Family history of alcohol abuse and dependence; Z90.5 Acquired absence of kidney; Z23 Encounter for immunization; Y90.8 Blood alcohol level of 240 mg/100 ml or more
CPT/HCPCS: 36415; 84484; 90471; 90674

== ENCOUNTER 2019-02-04 10:38 | Emergency (ER) | payer BC ==
[~2019-02-04 10:38] MED LIST changes: +CARB1DRO2 OP; +NIC10R INH; +NICOTROL CARTRIDGE PO; +TOBROD OU; +[UNRECOGNIZED DRUG - CODE] OP
--- NOTE | 2019-02-04 10:44 | ER Report ---
History and Physical Time Seen By MD: 10:44 HPI/ROS CHIEF COMPLAINT: Fall HISTORY OF PRESENT ILLNESS: Patient is a 58-year-old female who states she was shoveling snow this past Monday when she slipped and fell landing on her left side and striking her head. She denies any loss of consciousness. Both and Monday she had one episode of vomiting each day and continues to have intermittent nausea. She also has generalized weakness. She denies any neck pain or numbness or tingling. She complains of left posterior thoracic chest wall tenderness to palpation and with deep inspiration. She also complains of mild bilateral knee pain. Patient denies any blood in her urine. Patient is unsure of her last tetanus shot. REVIEW OF SYSTEMS: Respiratory: No cough, no dyspnea. Cardiovascular: No chest pain, no palpitations. Gastrointestinal: No vomiting, no abdominal pain. Musculoskeletal: Thoracic chest wall pain, bilateral knee pain, headache Allergies: Coded Allergies: No Known Drug Allergies (Unverified , 02/04/19) Home Meds Reported Medications Fluticasone Prop 44 Mcg (FLOVENT HFA 44 MCG) 44 Mcg Inha, 44 MCG INH, INH 02/04/19 Bupropion Hcl (BUPROPION HCL SR) 150 Mg Tablet.er, 150 MG PO 02/04/19 Ketotifen Fumarate (ALAWAY) 10 Ml Drops, 1-2 DROP OP PRN PRN for ITCHY EYES 12/06/18 [Nicotrol Cartridge] No Conflict Check, 1 EA PO PRN PRN for NICOTINE REPLACEMENT 12/06/18 Nicotine (NICOTROL) 10 Mg/Inh Ctr, 10 MG INH PRN PRN for NICOTINE REPLACEMENT 12/06/18 Carboxymethyl/Gly/Poly80/Pf (REFRESH OPTIVE ADVANCED DROPS) 1 Each Droperette, 1-2 GTT OP Q12H PRN for ITCHY EYES 12/06/18 Melatonin (Melatonin) 1 Mg Tablet.er, 10 PO HS 12/21/17 Cholecalciferol (Vitamin D3) (VITAMIN D3) 1,000 Unit Tablet, PO DAILY, TAB 12/21/17 Cyanocobalamin (Vitamin B-12) (VITAMIN B-12) 250 Mcg Tablet, PO DAILY 12/21/17 Ascorbic Acid (VITAMIN C) 500 Mg Tablet, PO DAILY, TAB 12/21/17 Multivitamin (MULTIVITAMINS) 1 Each Capsule, 1 EACH PO DAILY, CAPSULE 12/21/17 Gabapentin (GABAPENTIN) 300 Mg Capsule, 300 MG PO TID, CAPSULE 12/21/17 Buspirone Hcl (BUSPIRONE HCL) 15 Mg Tablet, 15 MG PO QAM, pt states only taking 1 QD 12/21/17 Venlafaxine Hcl (EFFEXOR XR) 75 Mg Cap.er.24h, 75 MG PO QAM 12/21/17 Discontinued Reported Medications Febuxostat (ULORIC) 80 Mg Tablet, 80 MG PO HS 12/21/17 Past Medical/Surgical History Past medical history for alcohol abuse, depression Hx Smoking: Yes Smoking Status: Current: Every Day Smoker Exposure to Second Hand Smoke?: No Hx Substance Use Disorder: No (PT DRINKS) Hx Alcohol Use: Yes Constitutional Vital Sign - Last 24 Hours 02/04/19 02/04/19 10:42 12:45 Temp 98.3 Pulse 111 97 Resp 14 14 B/P (MAP) Pulse Ox 93 96 O2 Delivery Room Air Room Air Physical Exam General/Constitutional: Patient is awake, alert, nontoxic and in no acute respiratory distress. Head: Normocephalic Eyes: Patient with a right-sided conjunctival hemorrhage approximately 25% of the medial lower pole, Pupils are equal and reactive to light. Extraocular muscles are intact and symmetrical. Ears:External canals are clear. Tympanic membranes are clear with normal landmarks and light reflex. Nares: No rhinorrhea or bleeding. Turbinates are pink and moist. Oropharyngeal: Mucous membranes are moist. There is no pharyngeal erythema or exudate. There are no palatal petechiae. Uvula is midline and symmetrical. Neck: Supple, no adenopathy. Cardiovascular: Heart is regular rate and rhythm without audible murmurs, rubs or gallops. Left posterior chest wall tenderness on exam Pulmonary: Lungs are clear to auscultation bilaterally. There are no wheezes, rales, or rhonchi. Chest rise is symmetrical Abdomen: Soft, nontender, no guarding or peritoneal signs. Extremities: No gross deformities, No peripheral cyanosis. Able to move all 4 extremities. Bilateral bruising to the patella no abrasions Neuro: Alert and oriented X3, Cranial nerves 2 thru 12 are intact and symmetrical. Patient has normal gait. Skin: No rashes, skin is warm dry and well perfused. Medical Decision Making EKG/Imaging Imaging FACILITY: [facility] PATIENT NAME: Ninfa Escalera : 1960 MR: [id number] V: [id number] EXAM DATE: ORDERING PHYSICIAN: ROSA CHERRY TECHNOLOGIST: Location: [facility] [place] Patient: Ninfa Escalera : 1960 Visit/Account:[id number] Date of Sevice: 02/04/2019 EXAMINATION: CT head without IV contrast HISTORY: Fall. COMPARISON: CT head from 07/19/2012. TECHNIQUE: Contiguous axial images were obtained from the skull base to the vertex without intravenous contrast. Sagittal and coronal reformatted images are also submitted. One of the following dose optimization techniques was utilized in the p erformance of this exam: Automated exposure control; adjustment of the mA and/or kV according to the patient's size; or use of an iterative reconstruction technique. Specific details can be referenced in the facility's radiology CT exam operational policy. FINDINGS: Brain volume: Normal. Ventricles: Normal. Acute ischemic changes: None. Hemorrhage: No acute intracranial hemorrhage. Masses/edema: None. [place]-white: Negative. White matter: Normal. Vessels: Negative. Extra-axial: Negative. Calvarium/scalp: No acute fracture. Skull base/visualized face: Negative. Visualized sinuses/orbits: Negative. IMPRESSION: No acute fracture, hemorrhage or intracranial mass lesion. No CT evidence of acute infarct. Report Dictated By: Soni Cartagena MD at 02/04/2019 12:29 PM Report E-Signed By: Soni Cartagena MD at 02/04/2019 12:32 PM WSN:[id number] FACILITY: [facility] PATIENT NAME: Ninfa Escalera : 1960 MR: [id number] V: [id number] EXAM DATE: ORDERING PHYSICIAN: ROSA CHERRY TECHNOLOGIST: Location: [facility] [place] Patient: Ninfa Escalera : 1960 Visit/Account:[id number] Date of Sevice: 02/04/2019 Exam type: RIBS LEFT History: Fell on ice, left rib pain lateral and posterior Comparison: Single view chest February 28, 2007. Findings: Two limited views the left ribs demonstrates cortical irregularity along the anterolateral aspect of the left 10th rib which is suspicious for a nondisplaced fracture. There is no evidence of a pneumothorax or pleural effusion. Incidentally noted is old posttraumatic deformity of the left shoulder with moderate degenerative changes. There are surgical clips in the upper abdomen IMPRESSION: 1. Findings are suspicious for nonspecific fracture through the anterior aspect of the left 10th rib Report Dictated By: Roseline Contreras MD at 02/04/2019 12:06 PM Report E-Signed By: Roseline Contreras MD at 02/04/2019 12:10 PM WSN:[email or web address] FACILITY: [facility] PATIENT NAME: Ninfa Escalera : 1960 MR: [id number] V: [id number] EXAM DATE: ORDERING PHYSICIAN: ROSA CHERRY TECHNOLOGIST: Location: [facility] [place] Patient: Ninfa Escalera : 1960 Visit/Account:[id number] Date of Sevice: 02/04/2019 Exam type: CHEST PA LAT History: Fell on ice with left rib pain Comparison: Single view chest February 28, [address] abdomen pelvis August 02, 2018 Findings: The lungs are free of acute effusions, infiltrates or edema. There is no evidence of a pneumothorax or pneumomediastinum. The cardiac silhouette is normal in size. There is an old posttraumatic deformity of the left shoulder with degenerative changes. There are postsurgical changes of the right shoulder.. There is a cortical irregularity along the anterior aspect left 10th rib suspicious for an acute fracture. On the lateral view there is mild loss of height of the vertebral body at the thoracolumbar which appear to been present on a prior CT from August 02, 2018 IMPRESSION: 1. No evidence of pulmonary consolidation Cortical irregularity along the anterior aspect left 10th rib is suspicious for an acute fracture On the lateral view there is mild loss of height of a vertebral body at the thoracolumbar region which appeared to been present on the prior CT from [facility] 2017 Report Dictated By: Roseline Contreras MD at 02/04/2019 12:10 PM Report E-Signed By: Roseline Contreras MD at 02/04/2019 12:14 PM WSN:[email or web address] FACILITY: [facility] PATIENT NAME: Ninfa Escalera : 1960 MR: [id number] V: [id number] EXAM DATE: ORDERING PHYSICIAN: ROSA CHERRY TECHNOLOGIST: Location: [facility] [place] Patient: Ninfa Escalera : 1960 Visit/Account:[id number] Date of Sevice: 02/04/2019 EXAMINATION: CT facial bones without IV contrast HISTORY: Fall. COMPARISON: CT orbits from 07/19/2012. TECHNIQUE: Axial images were obtained from the superior aspect of the orbits through the inferior aspect of mandible. Coronal and sagittal reformatted images were obtained from the axial source data. No IV contrast was administered. One of the following dose optimization techniques was utilized in the performance of this exam: Automated exposure control; adjustment of the mA and/or kV according to the patient's size; or use of an iterative reconstruction technique. Specific details can be referenced in the facility's radiology CT exam operational policy. FINDINGS: Soft Tissues: Negative. Mandible/TMJ: Negative. Maxilla/pterygoid plates: Negative. Zygoma/zygomatic arches: Negative. Orbits: Slightly irregular appearance of the right inferior orbital floor without evidence of acute fracture. Nasal bones/nasal septum: Negative. Frontal bones: Negative. Sinuses: Negative. Visualized brain: Negative. IMPRESSION: 1. No evidence of acute facial bone fracture. 2. Irregular appearance of the right inferior orbital floor is likely related to old, healed fracture. Report Dictated By: Soni Cartagena MD at 02/04/2019 12:32 PM Report E-Signed By: Soni Cartagena MD at 02/04/2019 12:44 PM WSN:[id number] ED Course/Re-evaluation ED Course Plan at this time will be CT of the head, facial bones and left ribs. I will give Zofran for nausea we'll update tetanus status. Decision to Disposition Date: Feb 04, 2019 Decision to Disposition Time: 12:56 Depart Departure Latest Vital Signs Vital Signs Date Time Temp Pulse Resp B/P (MAP) Pulse Ox O2 Delivery O2 Flow Rate FiO2 02/04/19 12:45 97 14 96 Room Air 02/04/19 10:42 98.3 Impression: Primary Impression: Concussion Additional Impressions: Left rib fracture Subconjunctival hemorrhage of right eye Condition: Improved Disposition: HOME OR SELF-CARE Referrals: NUNU ANDREW (PCP) New Scripts Ondansetron Hcl (ZOFRAN) 4 Mg Tablet 4 MG PO Q8H for Nausea, #15 TAB 0 Refills Prov: ROSA CHERRY MD 02/04/19 Departure Forms: ER Transition Record, Medications Reconciliation, Off Work/School Form, School or Work Release?: Work Number of days to be released: 2 Patient Portal Information Patient Instructions: Concussion (ED), Rib Fracture (DC), Subconjunctival Hemorrhage (GEN) Additional Instructions: Follow up for your concussion with Dr.Daniel Lyle at [facility] located at [facility] at [place], [place]. Can call for an appointment by calling [phone] Problem Qualifiers Primary Impression: Concussion Encounter type: initial encounter Loss of consciousness presence/duration: without LOC Qualified Codes: S06.0X0A - Concussion without loss of consciousness, initial encounter Additional Impressions: Left rib fracture Encounter type: initial encounter Rib fracture type: single rib Fracture type: closed Qualified Codes: S22.32XA - Fracture of one rib, left side, initial encounter for closed fracture ROSA CHERRY MD Feb 04, 2019 10:44
[2019-02-04] MEDS ORDERED: FLU44R INH (11:07)
[2019-02-04] MEDS ORDERED: BUPR-136 PO (11:07)
[2019-02-04] MEDS ORDERED: ONDANSETRON 4 MG ODT TABDP SL ONE (11:10)
[2019-02-04] MEDS ORDERED: ACETAMINOPHEN 325 MG TAB PO ONE (11:10)
[2019-02-04] MEDS ORDERED: DIPHTH/TETANUS/ACEL. PERTUSSIS IM ONLY ONE (11:35)
--- NOTE | 2019-02-04 12:14 | RADIOLOGY IMAGING REPORT ---
FACILITY: [facility] PATIENT NAME: Ninfa Escalera : 1960 MR: [id number] V: [id number] EXAM DATE: ORDERING PHYSICIAN: ROSA CHERRY TECHNOLOGIST: Location: [facility] [place] Patient: Ninfa Escalera : 1960 Visit/Account:[id number] Date of Sevice: 02/04/2019 Exam type: RIBS LEFT History: Fell on ice, left rib pain lateral and posterior Comparison: Single view chest February 28, 2007. Findings: Two limited views the left ribs demonstrates cortical irregularity along the anterolateral aspect of the left 10th rib which is suspicious for a nondisplaced fracture. There is no evidence of a pneumot horax or pleural effusion. Incidentally noted is old posttraumatic deformity of the left shoulder wi th moderate degenerative changes. There are surgical clips in the upper abdomen IMPRESSION: 1. Findings are suspicious for nonspecific fracture through the anterior aspect of the left 10th rib Report Dictated By: Roseline Contreras MD at 02/04/2019 12:06 PM Report E-Signed By: Roseline Contreras MD at 02/04/2019 12:10 PM WSN:[email or web address]
--- NOTE | 2019-02-04 12:20 | RADIOLOGY IMAGING REPORT ---
[place] [facility] [place] NAME: Ninfa Escalera : 1960 MR: [id number] V: [id number] EXAM DATE: ORDERING PHYSICIAN: ROSA CHERRY TECHNOLOGIST: [place] [facility] [place]infa Escalera : 1960 Visit/Account:[id number] Date of Sevice: 02/04/2019 Exam type: CHEST PA LAT History: Fell on ice with left rib pain Comparison: Single view chest February 28, [address] abdomen pelvis August 02, 2018 Findings: The lungs are free of acute effusions, infiltrates or edema. There is no evidence of a pneumothorax or pneumomediastinum. The cardiac silhouette is normal in size. There is an old posttraumatic defor mity of the left shoulder with degenerative changes. There are postsurgical changes of the right alber ulder.. There is a cortical irregularity along the anterior aspect left 10th rib suspicious for an a cute fracture. On the lateral view there is mild loss of height of the vertebral body at the thoraco lumbar which appear to been present on a prior CT from August 02, 2018 IMPRESSION: 1. No evidence of pulmonary consolidation Cortical irregularity along the anterior aspect left 10th rib is suspicious for an acute fracture On the lateral view there is mild loss of height of a vertebral body at the thoracolumbar region whic h appeared to been present on the prior CT from August 02, 2018 Report Dictated By: Roseline Contreras MD at 02/04/2019 12:10 PM Report E-Signed By: Roseline Contreras MD at 02/04/2019 12:14 PM WSN:[email or web address]
--- NOTE | 2019-02-04 12:36 | RADIOLOGY IMAGING REPORT ---
FACILITY: [facility] [place] PATIENT NAME: Ninfa Escalera : 1960 MR: [id number] V: [id number] EXAM DATE: ORDERING PHYSICIAN: ROSA CHERYR TECHNOLOGIST: Location: [facility] - [place] Patient: Ninfa Escalera : 1960 Visit/Account:[id number] Date of Sevice: 02/04/2019 EXAMINATION: CT head without IV contrast HISTORY: Fall. COMPARISON: CT head from 07/19/2012. TECHNIQUE: Contiguous axial images were obtained from the skull base to the vertex without intraven ous contrast. Sagittal and coronal reformatted images are also submitted. One of the following dose optimization techniques was utilized in the performance of this exam: Autom ated exposure control; adjustment of the mA and/or kV according to the patient's size; or use of an i terative reconstruction technique. Specific details can be referenced in the facility's radiology C T exam operational policy. FINDINGS: Brain volume: Normal. Ventricles: Normal. Acute ischemic changes: None. Hemorrhage: No acute intracranial hemorrhage. Masses/edema: None. [place]-white: Negative. White matter: Normal. Vessels: Negative. Extra-axial: Negative. Calvarium/scalp: No acute fracture. Skull base/visualized face: Negative. Visualized sinuses/orbits: Negative. IMPRESSION: No acute fracture, hemorrhage or intracranial mass lesion. No CT evidence of acute infarct. Report Dictated By: Soni Cartagena MD at 02/04/2019 12:29 PM Report E-Signed By: Soni Cartagena MD at 02/04/2019 12:32 PM WSN:[id number]
--- NOTE | 2019-02-04 12:48 | RADIOLOGY IMAGING REPORT ---
FACILITY: [facility] PATIENT NAME: Ninfa Escalera : 1960 MR: [id number] V: [id number] EXAM DATE: ORDERING PHYSICIAN: ROSA CHERRY TECHNOLOGIST: Location: [facility] Patient: Ninfa Escalera : 1960 Visit/Account:[id number] Date of Sevice: 02/04/2019 EXAMINATION: CT facial bones without IV contrast HISTORY: Fall. COMPARISON: CT orbits from 07/19/2012. TECHNIQUE: Axial images were obtained from the superior aspect of the orbits through the inferior as pect of mandible. Coronal and sagittal reformatted images were obtained from the axial source data. N o IV contrast was administered. One of the following dose optimization techniques was utilized in the performance of this exam: Autom ated exposure control; adjustment of the mA and/or kV according to the patient's size; or use of an i terative reconstruction technique. Specific details can be referenced in the facility's radiology C T exam operational policy. FINDINGS: Soft Tissues: Negative. Mandible/TMJ: Negative. Maxilla/pterygoid plates: Negative. Zygoma/zygomatic arches: Negative. Orbits: Slightly irregular appearance of the right inferior orbital floor without evidence of acute f racture. Nasal bones/nasal septum: Negative. Frontal bones: Negative. Sinuses: Negative. Visualized brain: Negative. IMPRESSION: 1. No evidence of acute facial bone fracture. 2. Irregular appearance of the right inferior orbital floor is likely related to old, healed fractur e. Report Dictated By: Soni Cartagena MD at 02/04/2019 12:32 PM Report E-Signed By: Soni Cartagena MD at 02/04/2019 12:44 PM WSN:[id number]
[2019-02-04] MEDS ORDERED: ONDA4TAB97 PO (12:59)
== END 2019-02-04 13:01 | disposition home or self-care (01) ==
LOC: ER 10:56
DX: S06.0X0A Concussion without loss of consciousness, initial encounter (principal); S22.32XA Fracture of one rib, left side, initial encounter for closed fracture; W00.0XXA Fall on same level due to ice and snow, initial encounter
CPT/HCPCS: 70450; 70486; 71046; 71100; 90471; 90715; 99284; S0119

== ENCOUNTER 2019-05-04 13:00 | Inpatient (IN) | payer BC ==
[~2019-05-04] VITALS: Ht 165.1 cm; Wt 76.2 kg
[~2019-05-04 13:00] MED LIST changes: +BUPR-136 PO; +FLU44R INH; +ONDA4TAB97 PO
--- NOTE | 2019-05-04 13:08 | ER Report ---
History and Physical Time Seen By MD: 13:07 HPI/ROS CHIEF COMPLAINT: Wanting detox, left ankle injury, right wrist injury HISTORY OF PRESENT ILLNESS: Patient is a 58-year-old female who presents to ED via EMS with complaint of wanting detox and also left ankle and right wrist injuries. She states that she has been drinking alcohol for the past 4 weeks straight. She has drank about 1-2 pints per day. She states that she did have a fall last night that resulted in the left ankle injury and then had another fall this morning about 2 hours prior to arrival that resulted in a right wrist injury. She has noted swelling and bruising of both areas. She has noted pain in both areas. Patient has been in contact with her primary care provider who has been advised her to come to the ER for the past few days for detox. She states that her last drink was this morning. She denies any chest pain or shortness of breath. She denies any nausea or vomiting. She has not had any hallucinations. She denies any other drug use. REVIEW OF SYSTEMS: Constitutional: No fever, no chills. Eyes: No discharge. ENT: No sore throat. Cardiovascular: No chest pain, no palpitations. Respiratory: No cough, no shortness of breath. Gastrointestinal: No abdominal pain, no vomiting. Genitourinary: No hematuria. Musculoskeletal: See history of present illness. Skin: No rashes. Neurological: No headache. Allergies: Coded Allergies: No Known Drug Allergies (Unverified , 05/04/19) Home Meds Active Scripts Ondansetron Hcl (ZOFRAN) 4 Mg Tablet, 4 MG PO Q8H for Nausea, #15 TAB 0 Refills Prov:ROSA CHERRY MD 02/04/19 Reported Medications Fluticasone Prop 44 Mcg (FLOVENT HFA 44 MCG) 44 Mcg Inha, 44 MCG INH, INH 02/04/19 Bupropion Hcl (BUPROPION HCL SR) 150 Mg Tablet.er, 150 MG PO 02/04/19 Ketotifen Fumarate (ALAWAY) 10 Ml Drops, 1-2 DROP OP PRN PRN for ITCHY EYES 12/06/18 Carboxymethyl/Gly/Poly80/Pf (REFRESH OPTIVE ADVANCED DROPS) 1 Each Droperette, 1-2 GTT OP Q12H PRN for ITCHY EYES 12/06/18 Melatonin (Melatonin) 1 Mg Tablet.er, 10 PO HS 12/21/17 Cholecalciferol (Vitamin D3) (VITAMIN D3) 1,000 Unit Tablet, PO DAILY, TAB 12/21/17 Cyanocobalamin (Vitamin B-12) (VITAMIN B-12) 250 Mcg Tablet, PO DAILY 12/21/17 Ascorbic Acid (VITAMIN C) 500 Mg Tablet, PO DAILY, TAB 12/21/17 Multivitamin (MULTIVITAMINS) 1 Each Capsule, 1 EACH PO DAILY, CAPSULE 12/21/17 Gabapentin (GABAPENTIN) 300 Mg Capsule, 300 MG PO BID, CAPSULE 12/21/17 Buspirone Hcl (BUSPIRONE HCL) 15 Mg Tablet, 15 MG PO QAM, pt states only taking 1 QD 12/21/17 Venlafaxine Hcl (EFFEXOR XR) 75 Mg Cap.er.24h, 75 MG PO QAM 12/21/17 Discontinued Reported Medications [Nicotrol Cartridge] No Conflict Check, 1 EA PO PRN PRN for NICOTINE REPLACEMENT 12/06/18 Nicotine (NICOTROL) 10 Mg/Inh Ctr, 10 MG INH PRN PRN for NICOTINE REPLACEMENT 12/06/18 Reviewed Nurses Notes: Yes Old Medical Records Reviewed: Yes Hx Smoking: Yes Smoking Status: Current: Every Day Smoker Exposure to Second Hand Smoke?: No Hx Substance Use Disorder: No (PT DRINKS) Hx Alcohol Use: Yes Constitutional Vital Sign - Last 24 Hours 05/04/19 05/04/19 05/04/19 05/04/19 13:03 13:05 13:10 13:15 Temp 98.5 Pulse 95 85 90 Resp 16 B/P (MAP) 96/68 96/68 (77) Pulse Ox 91 96 97 O2 Delivery Room Air 05/04/19 05/04/19 05/04/19 05/04/19 13:20 13:25 13:30 13:35 Pulse 85 85 88 84 B/P (MAP) 105/71 (82) Pulse Ox 97 98 99 97 05/04/19 05/04/19 05/04/19 05/04/19 13:40 13:45 13:50 14:00 Pulse 82 85 81 86 B/P (MAP) 107/78 (88) Pulse Ox 98 98 94 89 05/04/19 05/04/19 05/04/19 05/04/19 14:05 14:10 14:15 14:20 Pulse 81 98 86 83 Pulse Ox 86 95 96 96 05/04/19 05/04/19 14:30 14:40 B/P (MAP) 96/70 (79) Pulse Ox 83 Physical Exam General Appearance: The patient is alert, has no immediate need for airway protection and no signs of toxicity. Patient appears to be in no acute distress. Eyes: Pupils equal and round no pallor or injection. EOMs are full bilaterally. ENT, Mouth: Mucous membranes are moist. Respiratory: There are no retractions, lungs are clear to auscultation. Cardiovascular: Regular rate and rhythm. Gastrointestinal: Abdomen is soft and non tender, no masses, bowel sounds normal. Neurological: Cranial nerves II through XII intact. Skin: Warm and dry, no rashes. Musculoskeletal: Neck is supple non tender. There is slight deformity of the right wrist. She has pain with palpation of the ulnar and radius areas. She does have some ecchymosis and swelling primarily around the radial aspect. Decreased range of motion due to pain. Radial pulses 2+ with normal capillary refill. Normal sensation. The left ankle has pain primarily in the lateral region. There is some swelling and ecchymosis noted there. She has decreased range of motion due to the pain. PT and DP pulses are 2+ with normal capillary refill. Normal sensation. DIFFERENTIAL DIAGNOSIS: After history and physical exam differential diagnosis was considered for fracture, contusion, sprain, dislocation. Medical Decision Making Data Points Result Diagram: 05/04/19 1259 05/04/19 1259 Laboratory Hematology Test 05/04/19 12:59 Red Blood Count 3.89 M/uL (4.17-5.56) Mean Corpuscular Volume 98.3 fL (80.0-96.0) Mean Corpuscular Hemoglobin 33.8 pg (26.0-33.0) Mean Corpuscular Hemoglobin Concent 34.4 g/dL (32.0-36.0) Red Cell Distribution Width 18.2 % (11.5-14.5) Mean Platelet Volume 8.2 fL (7.2-11.1) Neutrophils (%) (Auto) 66.6 % (39.4-72.5) Lymphocytes (%) (Auto) 23.2 % (17.6-49.6) Monocytes (%) (Auto) 8.8 % (4.1-12.4) Eosinophils (%) (Auto) 0.6 % (0.4-6.7) Basophils (%) (Auto) 0.8 % (0.3-1.4) Nucleated RBC Relative Count (auto) 0.1 /100WBC Neutrophils # (Auto) 3.3 K/uL (2.0-7.4) Lymphocytes # (Auto) 1.1 K/uL (1.3-3.6) Monocytes # (Auto) 0.4 K/uL (0.3-1.0) Eosinophils # (Auto) 0.0 K/uL (0.0-0.5) Basophils # (Auto) 0.0 K/uL (0.0-0.1) Nucleated RBC Absolute Count (auto) 0.01 K/uL Sodium Level 147 mmol/L (137-145) Potassium Level 3.3 mmol/L (3.5-5.0) Chloride Level 106 mmol/L (98-107) Carbon Dioxide Level 29 mmol/L (22-31) Blood Urea Nitrogen 5 mg/dl (7-18) Creatinine 1.00 mg/dl (0.52-1.04) Glomerular Filtration Rate Calc 56.9 Random Glucose 108 mg/dl (75-110) Calcium Level 8.6 mg/dl (8.4-10.2) Magnesium Level 1.7 mg/dl (1.7-2.2) Total Bilirubin 0.4 mg/dl (0.2-1.3) Aspartate Amino Transf (AST/SGOT) 181 U/L (0-35) Alanine Aminotransferase (ALT/SGPT) 73 U/L (0-56) Alkaline Phosphatase 146 U/L (0-126) Total Protein 6.8 g/dl (6.3-8.2) Albumin 3.6 g/dl (3.5-5.0) Salicylates Level < 10 mg/L Salicylate Last Dose Date unkn Acetaminophen Level < 10 ug/ml Serum Alcohol 299 mg/dl Chemistry Test 05/04/19 12:59 White Blood Count 4.9 k/uL (4.5-11.0) Red Blood Count 3.89 M/uL (4.17-5.56) Hemoglobin 13.2 g/dL (12.0-16.0) Hematocrit 38.3 % (34.0-47.0) Mean Corpuscular Volume 98.3 fL (80.0-96.0) Mean Corpuscular Hemoglobin 33.8 pg (26.0-33.0) Mean Corpuscular Hemoglobin Concent 34.4 g/dL (32.0-36.0) Red Cell Distribution Width 18.2 % (11.5-14.5) Platelet Count 121 K/uL (150-450) Mean Platelet Volume 8.2 fL (7.2-11.1) Neutrophils (%) (Auto) 66.6 % (39.4-72.5) Lymphocytes (%) (Auto) 23.2 % (17.6-49.6) Monocytes (%) (Auto) 8.8 % (4.1-12.4) Eosinophils (%) (Auto) 0.6 % (0.4-6.7) Basophils (%) (Auto) 0.8 % (0.3-1.4) Nucleated RBC Relative Count (auto) 0.1 /100WBC Neutrophils # (Auto) 3.3 K/uL (2.0-7.4) Lymphocytes # (Auto) 1.1 K/uL (1.3-3.6) Monocytes # (Auto) 0.4 K/uL (0.3-1.0) Eosinophils # (Auto) 0.0 K/uL (0.0-0.5) Basophils # (Auto) 0.0 K/uL (0.0-0.1) Nucleated RBC Absolute Count (auto) 0.01 K/uL Glomerular Filtration Rate Calc 56.9 Calcium Level 8.6 mg/dl (8.4-10.2) Magnesium Level 1.7 mg/dl (1.7-2.2) Total Bilirubin 0.4 mg/dl (0.2-1.3) Aspartate Amino Transf (AST/SGOT) 181 U/L (0-35) Alanine Aminotransferase (ALT/SGPT) 73 U/L (0-56) Alkaline Phosphatase 146 U/L (0-126) Total Protein 6.8 g/dl (6.3-8.2) Albumin 3.6 g/dl (3.5-5.0) Salicylates Level < 10 mg/L Salicylate Last Dose Date unkn Acetaminophen Level < 10 ug/ml Serum Alcohol 299 mg/dl Toxicology Test 05/04/19 12:59 Salicylates Level < 10 mg/L Salicylate Last Dose Date unkn Acetaminophen Level < 10 ug/ml Serum Alcohol 299 mg/dl ED Course/Re-evaluation Clinical Indication for ER IV: Hydration ED Course Will obtain labs and x-rays. Reviewed x-rays with patient. There does appear to be a bimalleolar fracture of the left ankle as well as a displaced distal radius fracture of the right wrist. This will need some reduction. In discussed this with her. She does give her consent to the reduction. Procedure: Right wrist reduction The right wrist was reduced in the usual fashion with use of fingertrap without complications. Post reduction the patient's neurovascular exam is normal. Post reduction x-ray demonstrates reduction of the joint isn't better anatomic position. There is still some displacement.. The procedure was performed by myself. Discussed patient with Dr. Ribeiro, Orthopedics, who will see patient in the hospital. Discussed patient with Dr. Rangel, who will admit patient to the hospital. Decision to Disposition Date: May 04, 2019 Decision to Disposition Time: 16:37 Depart Departure Latest Vital Signs Vital Signs Date Time Temp Pulse Resp B/P (MAP) Pulse Ox O2 Delivery O2 Flow Rate FiO2 05/04/19 14:40 83 05/04/19 14:30 96/70 (79) 05/04/19 14:20 83 05/04/19 13:03 98.5 16 Room Air Impression: Primary Impression: Alcohol intoxication Additional Impressions: Right wrist fracture Bimalleolar fracture of left ankle Condition: Improved Disposition: Admitted from ER Referrals: NUNU ANDREW (PCP) Consult Note: Dr. Ribeiro, Orthopedics Dr. Rangel, Hospitalist Problem Qualifiers Primary Impression: Alcohol intoxication Complication of substance-induced condition: uncomplicated Qualified Codes: F10.920 - Alcohol use, unspecified with intoxication, uncomplicated Additional Impressions: Right wrist fracture Encounter type: initial encounter Fracture type: closed Qualified Codes: S62.101A - Fracture of unspecified carpal bone, right wrist, initial encounter for closed fracture Bimalleolar fracture of left ankle Encounter type: initial encounter Fracture type: closed Qualified Codes: S82.842A - Displaced bimalleolar fracture of left lower leg, initial encounter for closed fracture KISHOR TAPIA PA-C May 04, 2019 13:08
[2019-05-04] MEDS ORDERED: THIAMINE HCL(*) 200 MG/2 ML IN 100 MG, FOLIC ACID(*) 50 MG/10 ML INJ 1 MG, MULTIVITAMIN... IV ONE (13:15)
[2019-05-04 13:25] LABS: PLATELET COUNT, AUTOMATED 121 K/uL (150-450)
--- NOTE | 2019-05-04 14:19 | RADIOLOGY IMAGING REPORT ---
FAC[place] [facility] [place]IENT NAME: Ninfa Escalera : 1960 MR: [id number] V: [id number] EXAM DATE: ORDERING PHYSICIAN: KISHOR TAPIA TECHNOLOGIST: Location: [facility] - [place] Patient: Ninfa Escalera : 1960 Visit/Account:[id number] Date of Sevice: 05/04/2019 XR WRIST 3 OR MORE VIEWS RT HISTORY: FOOSH 2 hours ago, pain on ulnar aspect COMPARISON: None FINDINGS: AP lateral and oblique views of the left wrist demonstrates the presence of a displaced com minuted fracture of the distal left radius. There is a avulsion of the left ulnar styloid process. The carpal bones demonstrate no evidence of acute fracture. There is degenerative disease at the fir st metacarpal carpal joint noted. Carpal rows are well aligned. Scaphoid bone is intact. Scapholunate and lunotriquetral intervals are normal. IMPRESSION: Displaced comminuted fracture of distal left radius. Avulsion fracture of the left ulnar styloid pro cess. Report Dictated By: Mayco Elliott at 05/04/2019 2:13 PM Report E-Signed By: Mayco Elliott at 05/04/2019 2:14 PM WSN:[email or web address]
--- NOTE | 2019-05-04 14:20 | RADIOLOGY IMAGING REPORT ---
FACILITY: [facility] PATIENT NAME: Ninfa Escalera : 1960 MR: [id number] V: [id number] EXAM DATE: ORDERING PHYSICIAN: KISHOR TAPIA TECHNOLOGIST: Location: [facility] - [place] Patient: Ninfa Escalera : 1960 Visit/Account:[id number] Date of Sevice: 05/04/2019 Study: ANKLE 3 VIEW MIN LEFT Indication: Injury Comparison study: None available Findings: AP lateral and oblique views of the left ankle demonstrates the presence of diffuse soft ti ssue swelling. There is a an oblique fracture of the distal left fibula noted. There is an avulsion fracture present at the medial malleolus. The posterior malleolus is intact. The ankle mortise han nt is unstable. IMPRESSION: Bimalleolar fracture of the left ankle with ankle mortise joint instability. Report Dictated By: Mayco Elliott at 05/04/2019 2:14 PM Report E-Signed By: Mayco Elliott at 05/04/2019 2:15 PM WSN:[id number]
[2019-05-04] MEDS ORDERED: MORPHINE 2 MG/ML SYR IVP ONE (15:05)
--- NOTE | 2019-05-04 15:40 | RADIOLOGY IMAGING REPORT ---
FACILITY: [facility] PATIENT NAME: Ninfa Escalera : 1960 MR: [id number] V: [id number] EXAM DATE: ORDERING PHYSICIAN: KISHOR TAPIA TECHNOLOGIST: Location: [facility] Patient: Ninfa Escalera : 1960 Visit/Account:[id number] Date of Sevice: 05/04/2019 XR WRIST 2 VWS RT Indication: post reduction Comparison: None Findings: Lateral image of a right wrist is available. Transverse fracture through the distal radius and ulnar is seen, with moderate dorsal angulation of the fracture fragments. IMPRESSION: Comminuted fracture distal right radius and ulna. There is slightly improved alignment co mpared to right wrist radiograph from earlier today. Report Dictated By: Miguel Angel Fallon at 05/04/2019 3:17 PM Report E-Signed By: Miguel Angel Fallon at 05/04/2019 3:36 PM WSN:[id number]
--- NOTE | 2019-05-04 15:59 | RADIOLOGY IMAGING REPORT ---
FACILITY: [facility] - [place] PATIENT NAME: Ninfa Escalera : 1960 MR: [id number] V: [id number] EXAM DATE: ORDERING PHYSICIAN: KISHOR TAPIA TECHNOLOGIST: Location: [facility] - [place] Patient: Ninfa Escalera : 1960 Visit/Account:[id number] Date of Sevice: 05/04/2019 EXAMINATION: Right wrist 2 views HISTORY: Post reduction COMPARISON: Prior studies of earlier today. FINDINGS: In comparison to the prior examinations there is improved alignment of the comminuted intra-articular fracture of the distal right radius. There is persistent dorsal displacement of the distal fracture fragment measuring 6 mm with slight impaction. No other new osseous findings. Fracture through the ulnar styloid. Surrounding soft tissue swelling. IMPRESSION: Comminuted intra-articular fracture of the distal right radius. Improved alignment of th e fracture following closed reduction. No other new osseous findings. Report Dictated By: Jose Zamora MD at 05/04/2019 3:52 PM Report E-Signed By: Jose Zamora MD at 05/04/2019 3:55 PM WSN:[id number]
[2019-05-04 17:34] VITALS: BP 127/65
[2019-05-04] MEDS ORDERED: NS(*) 0.9% 1000 ML BAG 1,000 ML IV PRN (18:48)
[2019-05-04] MEDS ORDERED: FLUSH 10 ML SYR IVP PRN (18:50)
[2019-05-04] MEDS: MORPHINE 4 MG/ML SDV IVP PRN (19:12)
--- NOTE | 2019-05-04 19:16 | History & Physical ---
History of Present Illness Chief Complaint wrist and ankle pain after falls History of Present Illness 58F presented with wrist and ankle pain after fall. PMHx significant for EtOH abuse, depression/anxiety. Fell this am over dog while intoxicated. Had ankle pain but attempted to continue on. Had another fall later with immediate pain of R arm and deformity then elected to seek help in ER. Found to have displaced radial Fx of R arm and bimalleolar Fx of L ankle. Due to history of alcoholism and current intoxication she was admitted for medical stabilization prior to surgical repair. History Problems: (1) Alcohol abuse Status: Chronic Home Meds Reported Medications Fluticasone Prop 44 Mcg (FLOVENT HFA 44 MCG) 44 Mcg Inha, 44 MCG INH, INH 02/04/19 Bupropion Hcl (BUPROPION HCL SR) 150 Mg Tablet.er, 150 MG PO 02/04/19 Ketotifen Fumarate (ALAWAY) 10 Ml Drops, 1-2 DROP OP PRN PRN for ITCHY EYES 12/06/18 Carboxymethyl/Gly/Poly80/Pf (REFRESH OPTIVE ADVANCED DROPS) 1 Each Droperette, 1-2 GTT OP Q12H PRN for ITCHY EYES 12/06/18 Melatonin (Melatonin) 1 Mg Tablet.er, 10 PO HS 12/21/17 Cholecalciferol (Vitamin D3) (VITAMIN D3) 1,000 Unit Tablet, PO DAILY, TAB 12/21/17 Cyanocobalamin (Vitamin B-12) (VITAMIN B-12) 250 Mcg Tablet, PO DAILY 12/21/17 Ascorbic Acid (VITAMIN C) 500 Mg Tablet, PO DAILY, TAB 12/21/17 Multivitamin (MULTIVITAMINS) 1 Each Capsule, 1 EACH PO DAILY, CAPSULE 12/21/17 Gabapentin (GABAPENTIN) 300 Mg Capsule, 300 MG PO BID, CAPSULE 12/21/17 Buspirone Hcl (BUSPIRONE HCL) 15 Mg Tablet, 15 MG PO QAM, pt states only taking 1 QD 12/21/17 Venlafaxine Hcl (EFFEXOR XR) 75 Mg Cap.er.24h, 75 MG PO QAM 12/21/17 Discontinued Reported Medications [Nicotrol Cartridge] No Conflict Check, 1 EA PO PRN PRN for NICOTINE REPLACEMENT 12/06/18 Nicotine (NICOTROL) 10 Mg/Inh Ctr, 10 MG INH PRN PRN for NICOTINE REPLACEMENT 12/06/18 Discontinued Scripts Ondansetron Hcl (ZOFRAN) 4 Mg Tablet, 4 MG PO Q8H for Nausea, #15 TAB 0 Refills Prov:ROSA CHERRY MD 02/04/19 Allergies: Coded Allergies: No Known Drug Allergies (Unverified , 05/04/19) Patient History: FH: alcoholism FATHER, Hx Smoking: Yes (5 cigarettes/week) Smoking Status: Current: Every Day Smoker Exposure to Second Hand Smoke?: No Caffeine Intake: Coffee, Soda Caffeine/Cups Per Day: 3-4 Hx Alcohol Use: Yes (EtOH abuse; drinks 2-3 pints of vodka a day) Alcohol Used: Liquor Hx Substance Use Disorder: No Social Drug Use: Former Social Drugs: Marijuana Review of Systems Musculoskeletal: Pain Exam Vital Signs Vital Signs Date Time Temp Pulse Resp B/P (MAP) Pulse Ox O2 Delivery O2 Flow Rate FiO2 05/04/19 17:45 93 05/04/19 17:34 99.3 93 16 127/65 (85) Room Air General Appearance: Alert, Awake, No Acute Distress, Afebrile Neuro: No Gross deficits Cardiovascular: Normal Rhythm & Peripheral Pulses Respiratory: No Respiratory Distress GI: Abd Soft and Non-Tender Extremities: Warm, Pulses, Perfused; No Edema; Other (R arm and L ankle splinted) Medical Decision Making Data Points Result Diagram: 05/04/19 1259 05/04/19 1259 Assessment and Plan Problems: (1) Bimalleolar fracture of left ankle Status: Acute Assessment & Plan: Dr Ribeiro planning surgical repair. Will get EKG and CXR to evaluate operative risk, denies any concerning medical history but is less than forthcoming. (2) Right wrist fracture Status: Acute Assessment & Plan: Now reduced and splinted, anticipate surgical stabilization in near future. (3) Alcohol abuse Status: Chronic Assessment & Plan: Placed on CIWA, monitor. (4) Alcohol intoxication Status: Acute Assessment & Plan: MORE 299 on admission, will monitor for withdrawal as alcohol clears. Venous Thromboembolism Antithrombotics Is Pt On Any Antithrombotics?: No Prophylaxis Tx Contraindicated Pharmacological Contraindicati: Surgical Contraindication (anticipate surgical repair.) Exam Sepsis Risk: No Definite Risk Problem Qualifiers (1) Alcohol intoxication: Complication of substance-induced condition: uncomplicated Qualified Codes: F10.920 - Alcohol use, unspecified with intoxication, uncomplicated TYREL ALCOCER DO May 04, 2019 19:16
[2019-05-04 19:20] VITALS: BP 104/68
--- NOTE | 2019-05-04 19:57 | EKG ---
FACILITY: [facility] PATIENT NAME: PANCHO LOZANO : [id number] MR: [id number] V: [id number] EXAM DATE: ORDERING PHYSICIAN: TYREL RAJAN TECHNOLOGIST: KOFI Test Reason : PRE-OP Blood Pressure : / mmHG Vent. Rate : 094 BPM Atrial Rate : 094 BPM P-R Int : 154 ms QRS Dur : 088 ms QT Int : 368 ms P-R-T Axes : 017 -27 032 degrees QTc Int : 460 ms Normal sinus rhythm Prolonged QT Leftward axis When compared with ECG of 03-DEC-2018 12:46, No significant change was found Confirmed by Tyrel Perez ([id number]) on 05/05/2019 7:52:07 AM Referred By: Confirmed By:Tyrel Rajan
[2019-05-04] MEDS: DIAZEPAM 10 MG TAB PO PRN (20:04)
[2019-05-04 21:15] VITALS: BP 117/65
[2019-05-04] MEDS: NYSTATIN 100,000 U/GM PWD 15GM TP SCH (21:33)
[2019-05-05] VITALS (7 sets, daily range): BP systolic 112–131; BP diastolic 67–74; Ht 165.1 cm; Wt 76.2 kg
[2019-05-05] MEDS: traMADol 50 MG TAB PO PRN ×4 (00:05→23:19)
[2019-05-05] MEDS: DIAZEPAM 10 MG TAB PO PRN (00:11)
[2019-05-05] MEDS: MORPHINE 4 MG/ML SDV IVP PRN ×3 (03:29→19:58)
[2019-05-05 06:10] LABS: PLATELET COUNT, AUTOMATED 90 K/uL (150-450)
[2019-05-05] MEDS: FOLIC ACID 1 MG TAB PO SCH (08:54)
[2019-05-05] MEDS: THIAMINE HCL 200 MG/2 ML INJ IVP SCH (08:55)
[2019-05-05] MEDS: NYSTATIN 100,000 U/GM PWD 15GM TP SCH ×2 (08:56→21:40)
[2019-05-05] MEDS: NICOTINE 7 MG/24 HR PATCH TD SCH (10:30)
--- NOTE | 2019-05-05 10:53 | Hospitalist Progress Note ---
Subjective Progress Notes Subjective The patient is having a lot of pain due to multiple fractures. She states she was planning to come in and admit herself to [facility] for detox. She went through rehab in 2015 and was sober for 3 and 1/2 years. Recently she has had many stressors in her life and started drinking again. She has a strong FH of addiction. Physical Exam Vital Signs Date Time Temp Pulse Resp B/P (MAP) Pulse Ox O2 Delivery O2 Flow Rate FiO2 05/05/19 06:46 98.7 97 16 112/70 (84) 94 Nasal Cannula 1.0 Intake and Output 05/05/19 07:01 Intake Total 1760 ml Balance 1760 ml Intake Oral 1760 ml General Appearance: Alert, Awake, No Acute Distress Neuro: No Gross deficits Cardiovascular: Regular Rate and Rhythm Respiratory: Clear to Auscultation GI: Soft and Non-Tender Extremities: Other (R arm is in a splint. L lower leg is also splinted.) Integumentary: Generalized Fragile Skin Psych: Appropriate Mood & Affect Result Diagram: 05/05/1952505/05/19525 Assessment and Plan Problems: (1) Bimalleolar fracture of left ankle Status: Acute Assessment & Plan: Dr Ribeiro planning surgical repair. Will get EKG and CXR to evaluate operative risk, denies any concerning medical history but is less than forthcoming. (2) Right wrist fracture Status: Acute Assessment & Plan: Now reduced and splinted, anticipate surgical stabilization in near future. (3) Alcohol abuse Status: Chronic Assessment & Plan: Placed on CIWA, monitor. (4) Alcohol intoxication Status: Acute Assessment & Plan: MORE 299 on admission, will monitor for withdrawal as alcohol clears. The patient is interested in rehabilitation. Time Spent on Plan of Care: < 30 min Exam Sepsis Risk: No Definite Risk Problem Qualifiers (1) Alcohol intoxication: Complication of substance-induced condition: uncomplicated Qualified Codes: F10.920 - Alcohol use, unspecified with intoxication, uncomplicated TREY LANDIS MD May 05, 2019 10:52
--- NOTE | 2019-05-05 12:59 | RADIOLOGY IMAGING REPORT ---
FACILITY: [facility] - [place] PATIENT NAME: Ninfa Escalera : 1960 MR: [id number] V: [id number] EXAM DATE: ORDERING PHYSICIAN: SERVANDO ROLLINS TECHNOLOGIST: Location: [facility] Patient: Ninfa Escalera : 1960 Visit/Account:[id number] Date of Sevice: 05/05/2019 EXAMINATION: Left knee series, 3 views 05/05/2019 11:58 AM HISTORY: pain after a fall COMPARISON: None FINDINGS: Mild spurring along patellar margins and the tibial spines. Femorotibial joint spaces are well-preserved. Small bony or calcific focus along the upper aspect of the medial femoral condyle wit hout appreciable overlying fatty effacement. No defined joint effusion although the knee is flexed in the lateral. IMPRESSION: 1. Mild degenerative changes. 2. Calcific or bony focus along the proximal aspect of the medial femoral condyle. There is no apprec iable overlying soft tissue swelling and this may be chronic unless there is concern for acute avulsi on injury related to the MCL. Report Dictated By: Miguel Angel Mooney MD at 05/05/2019 12:52 PM Report E-Signed By: Miguel Angel Mooney MD at 05/05/2019 12:54 PM WSN:[id number]
--- NOTE | 2019-05-05 13:25 | RADIOLOGY IMAGING REPORT ---
FACILITY: [facility] PATIENT NAME: Ninfa Escalera : 1960 MR: [id number] V: [id number] EXAM DATE: ORDERING PHYSICIAN: TYREL RAJAN TECHNOLOGIST: Location: [facility] Patient: Ninfa Escalera : 1960 Visit/Account:[id number] Date of Sevice: 05/04/2019 Examination: CHEST SINGLE AP, 05/05/2019 at 11:47 AM. Comparison: 02/04/2019 History: preoperative Findings: Cardiac and hilar contour size is within normal limits. No consolidation, nodule, or acute peribronchial inflammation. No pneumothorax, edema, or effusion. Chronic postsurgical and traumatic c hange involving the visualized portions of both humerus. No acute osseous abnormality. IMPRESSION: No findings of acute cardiopulmonary disease. Report Dictated By: Emeka Griffin MD at 05/05/2019 1:17 PM Report E-Signed By: Emeka Griffin MD at 05/05/2019 1:20 PM WSN:[id number]
--- NOTE | 2019-05-05 13:48 | Miscellaneous Provider Note ---
Miscellaneous Provider Note Note Dr. Ribeiro saw the patient and agrees to repair her fractures in the near future. He could add her on to his Monday schedule if need be. The patient has a L bimalleolar ankle fracture. She also has a possible acute avulsion injury related to the MCL on her medial femoral condyle of the left knee per x-ray. She also has a comminuted intra-articular fracture of the distal right radius. It is unlikely that she would be able to go home and come back to have the surgery done. Will have PT/OT see and have social work see as well for potential discharge planning. It is likely she will need to have these fractures repaired and then will need rehabilitation. Also currently there is concern that the pat ient may go in to withdrawal. Will continue to monitor closely. TREY LANDIS MD May 05, 2019 13:48
[2019-05-06] VITALS (8 sets, daily range): BP systolic 106–141; BP diastolic 74–96
--- NOTE | 2019-05-06 03:40 | CONSULTATION ---
EVENT DATE: May 05, 2019 HISTORY OF PRESENT ILLNESS Ms. Ninfa Escalera had been having some difficulties with alcoholism. As I understand it, she had a previous history of having alcoholism, and she was sober for 3-1/2 years. Then, approximately six to eight weeks ago, she had some family issues that she did not want to go into that caused her to become depressed, and then she thought perhaps getting back on the alcohol might help. Unfortunately, that was not the case. She got up to a point where she was smoking about five or six cigarettes per day and drinking vodka, two pints per day, but was not taking any other illicit drugs. During the course of one of these drinking periods, she was quite intoxicated in her backyard and she stumbled yesterday and twisted her left ankle, causing quite a bit of pain. She hobbled back into the house and tried to get by, thinking it was an ankle sprain, but then she lost her balance again and fell over, landing on her outstretched right wrist, and had a deformity there with quite a bit of pain as well. She contacted her mother, who lives in [place], and she came and helped and took her dog and called 911. She was transported by ambulance to the emergency room. X-rays confirmed an intra-articular displaced distal radius fracture with a basilar ulnar styloid fracture on the right wrist, in association with a bimalleolar ankle fracture, but the medial malleolus actually just was an avulsion fracture while the lateral malleolus was shifted approximately 5 mm. Her exam suggested some proximal fibular pain, so I got an x-ray of the knee, but there is no evidence of fibular fracture proximally. I do not see a plateau fracture. When she was admitted into the emergency room, I received a phone call from the ER doctor indicating that her blood alcohol level was around 250, and she was not really a candidate for anything surgical at this time. They did sedation and a reduction of the displaced wrist fracture so it was in a little bit better position, but the post-reduction film was still not acceptable; it is just better than it was. This will need a volar wrist plate to support it, and for the fibula, that would normally need just a lateral fibular plate. We are going to try to get her some platform crutches or a platform walker to assist with this for now, but technically, these are actually all just elective procedures; and when I spoke with Dr. Puentes, the anesthesiologist certification engineer, he felt that it was ill-advised to undertake an elective procedure on somebody who is still residually intoxicated or possibly will be going through delirium tremens. She is immobilized on both the ankle and the wrist. Her exam at this point shows an intact ulnar and median sensory exam, and she can move all of her digits on both the left lower extremity and the right upper extremity without difficulty. She reports no additional points of pain except the left knee previously noted, and again, x-rays of that were normal. She lives in a townhouse here in [place] with her dog. There is only one step to get into the building, but it is a split level with the bedroom upstairs. She says she could sleep in her recliner downstairs, and then everything would be on one floor for her, including bathroom and kitchen. The plan at this point is to get another blood alcohol level and see where she is at, but most likely she will end up having her procedure done as an outpatient, once she has fully detoxed. We have about seven to 10 days to do this, so we are not really "under the gun" to make a decision and intervene rapidly. CHELSEY
[2019-05-06] MEDS: traMADol 50 MG TAB PO PRN ×3 (05:41→18:21)
[2019-05-06 05:45] LABS: PLATELET COUNT, AUTOMATED 93 K/uL (150-450)
[2019-05-06] MEDS ORDERED: MAGNESIUM HYDROXIDE* 30ML UDCP PO PRN (09:15)
[2019-05-06] MEDS: THIAMINE HCL 200 MG/2 ML INJ IVP SCH (09:19)
[2019-05-06] MEDS: DIAZEPAM 10 MG TAB PO PRN ×6 (09:19→23:57)
[2019-05-06] MEDS: FOLIC ACID 1 MG TAB PO SCH (09:19)
[2019-05-06] MEDS: NYSTATIN 100,000 U/GM PWD 15GM TP SCH ×2 (09:20→21:20)
[2019-05-06] MEDS: DOCUSATE SODIUM 100 MG CAP PO SCH ×2 (09:37→21:20)
--- NOTE | 2019-05-06 10:11 | Hospitalist Progress Note ---
Subjective Progress Notes Subjective She was admitted with multiple fractures. She is starting to withdraw from alcohol. She had no acute events overnight. Patient Complains of: Cardiovascular: No: Chest Pain Respiratory: No: Shortness of Breath Physical Exam Vital Signs Date Time Temp Pulse Resp B/P (MAP) Pulse Ox O2 Delivery O2 Flow Rate FiO2 05/06/19 07:54 88 Room Air 05/06/19 07:50 105 20 05/06/19 06:55 99.0 134/80 (98) 1.0 Intake and Output 05/06/19 01:01 Intake Total 400 ml Balance 400 ml Intake Oral 400 ml # Voids 7 General Appearance: Alert, Awake, No Acute Distress, Afebrile Neuro: No Gross deficits Cardiovascular: Regular Rate and Rhythm Respiratory: No Respiratory Distress, Clear to Auscultation GI: Soft and Non-Tender Psych: Alert & Oriented X3, Appropriate Mood & Affect Result Diagram: 05/06/1951105/06/19511 Assessment and Plan Problems: (1) Bimalleolar fracture of left ankle Status: Acute Assessment & Plan: Dr Ribeiro planning surgical repair. EKG and CXR show no concerning risk for surgery, denies any concerning medical history but is less than forthcoming. Will need to await for alcohol detox prior to surgery. (2) Right wrist fracture Status: Acute Assessment & Plan: Now reduced and splinted, anticipate surgical stabilization in near future. (3) Alcohol abuse Status: Chronic Assessment & Plan: Placed on CIWA, monitor. Requiring Valium today. (4) Alcohol intoxication Status: Acute Assessment & Plan: MORE 299 on admission. The patient is interested in rehabilitation. Exam Sepsis Risk: No Definite Risk Problem Qualifiers (1) Alcohol intoxication: Complication of substance-induced condition: uncomplicated Qualified Codes: F10.920 - Alcohol use, unspecified with intoxication, uncomplicated KEATON OBRIEN [facility] May 06, 2019 10:11
[2019-05-06] MEDS: NICOTINE 7 MG/24 HR PATCH TD SCH (10:30)
--- NOTE | 2019-05-06 12:07 | NUR ---
Physical Therapy Impression Pt lives alone in a bi-level home with 2 platform steps to enter. Pt's bedroom and bathroom with a tub/shower combination are on the second floor. Pt reports having a recliner and a 1/2 bath on the main floor. Pt also reports it may be an option to discharge to her mother's home which does not have stairs to enter but also is a bi-level home with the bedrooms and bathrooms on the second floor. Her mother's home has a stair lift. Discussed with Pt options for adaptive equipment such as using a wheelchair for mobility and a walker with a platform. Pt verbalizes understanding. PT to continue to follow and mobilize as directed by orthopedics (weightbearing status has not yet been ordered). Physical Therapy Goals 1. Mod I bed mobility. 2. SBA transfers. 3. SBA ambulation x25' with most appropriate assistive device maintaining appropriate weightbearing through R UE and L LE. 4. Ascend/descend stairs appropriate for discharge destination. Patient's Goals
--- NOTE | 2019-05-06 12:18 | NUR ---
Occupational Therapy Impression Subjective evaluation completed. Will follow and mobilize with further guidance from orthopedics (WB status) and imaging of left knee. Occupational Therapy Goals 1) Pt will be Min A UB/LB dressing. 2) Pt will be Min A grooming/hygiene. 3) Pt will be Min A toilet task. Patient's Goal
[2019-05-07] VITALS (7 sets, daily range): BP systolic 104–128; BP diastolic 72–89
[2019-05-07] MEDS: traMADol 50 MG TAB PO PRN ×2 (00:43→17:17)
[2019-05-07] MEDS: FOLIC ACID 1 MG TAB PO SCH (10:26)
[2019-05-07] MEDS: POLYETHYLENE GLYCOL 17 GM PKT PO SCH (10:26)
[2019-05-07] MEDS: DOCUSATE SODIUM 100 MG CAP PO SCH ×2 (10:26→21:00)
[2019-05-07] MEDS: THIAMINE HCL 200 MG/2 ML INJ IVP SCH ×2 (10:26→14:31)
[2019-05-07] MEDS: NYSTATIN 100,000 U/GM PWD 15GM TP SCH ×2 (10:27→21:00)
[2019-05-07] MEDS: NICOTINE 7 MG/24 HR PATCH TD SCH (10:28)
--- NOTE | 2019-05-07 11:50 | Hospitalist Progress Note ---
Subjective Progress Notes Subjective She was admitted with alcohol intoxication and multiple fractures. She is still withdrawing from alcohol, but shows some improvement from yesterday. Patient Complains of: Cardiovascular: No: Chest Pain Respiratory: No: Shortness of Breath Physical Exam Vital Signs Date Time Temp Pulse Resp B/P (MAP) Pulse Ox O2 Delivery O2 Flow Rate FiO2 05/07/19 07:03 98.0 98 20 105/89 (94) 93 Nasal Cannula 1.5 Intake and Output 05/07/19 01:01 Intake Total 880 ml Balance 880 ml Intake Oral 880 ml # Voids 11 General Appearance: Alert, Awake, No Acute Distress, Afebrile Neuro: No Gross deficits Cardiovascular: Regular Rate and Rhythm Respiratory: No Respiratory Distress, Clear to Auscultation Psych: Alert & Oriented X3, Appropriate Mood & Affect Result Diagram: 05/06/1951105/06/19511 Assessment and Plan Problems: (1) Bimalleolar fracture of left ankle Status: Acute Assessment & Plan: Dr Ribeiro planning surgical repair. EKG and CXR show no concerning risk for surgery, denies any concerning medical history but is less than forthcoming. Will need to await for alcohol detox prior to surgery. (2) Right wrist fracture Status: Acute Assessment & Plan: Now reduced and splinted, anticipate surgical stabilization in near future. (3) Alcohol abuse Status: Chronic Assessment & Plan: Placed on CIWA, monitor. (4) Alcohol intoxication Status: Acute Assessment & Plan: MORE 299 on admission. The patient is interested in rehabilitation. Shiela Mchugh BRICK SETTER working on inpatient rehab in [place]. TB test was placed for admission to inpatient facility. Exam Sepsis Risk: No Definite Risk Problem Qualifiers (1) Alcohol intoxication: Complication of substance-induced condition: uncomplicated Qualified Codes: F10.920 - Alcohol use, unspecified with intoxication, uncomplicated KEATON OBRIEN [employer] May 07, 2019 11:50
[2019-05-07] MEDS: DIAZEPAM 10 MG TAB PO PRN (13:57)
--- NOTE | 2019-05-07 15:32 | NUR ---
Occupational Therapy Impression Assist x2 for stand pivot transfer chair<>bed with no assistive device. Max-Mod Ax1 to maintain safety and NWB of L) ankle. Mod Ax1 sit<>stand and Min Ax1 to complete transfer. Mod Ax1 sit<>supine. Pt may require long-term rehab pending progress after sx and weight bearing status of L ) LE and R) UE. Occupational Therapy Goals 1) Pt will be Min A UB/LB dressing. 2) Pt will be Min A grooming/hygiene. 3) Pt will be Min A toilet task. Patient's Goal
[2019-05-08] MEDS: traMADol 50 MG TAB PO PRN ×3 (02:19→15:51)
[2019-05-08 03:57] VITALS: BP 124/74
[2019-05-08 06:55] VITALS: BP 114/77
[2019-05-08] MEDS: POLYETHYLENE GLYCOL 17 GM PKT PO SCH (09:00)
[2019-05-08] MEDS: DOCUSATE SODIUM 100 MG CAP PO SCH ×2 (09:00→21:00)
[2019-05-08] MEDS: THIAMINE HCL 100 MG TAB PO SCH (09:04)
[2019-05-08] MEDS: NYSTATIN 100,000 U/GM PWD 15GM TP SCH (09:05)
[2019-05-08] MEDS: FOLIC ACID 1 MG TAB PO SCH (09:06)
[2019-05-08] MEDS ORDERED: KCL/D1/2NS 20 MEQ 1000 ML 1,000 ML IV PRN (10:15)
[2019-05-08 10:28] VITALS: BP 118/71
[2019-05-08] MEDS: NICOTINE 7 MG/24 HR PATCH TD SCH (10:30)
--- NOTE | 2019-05-08 11:54 | Hospitalist Progress Note ---
Subjective Progress Notes Subjective Last dose of Valium was about 20 hours ago. Scoring about 9 on CIWA. Patient denies any problems with anesthesia, previously. She denies orthopnea or CP with exertion. She denies COPD/CHF/CAD/CVD/PE or DVT. Physical Exam Vital Signs Date Time Temp Pulse Resp B/P (MAP) Pulse Ox O2 Delivery O2 Flow Rate FiO2 05/08/19 10:28 98.9 80 16 118/71 (87) 90 Nasal Cannula 0.5 Intake and Output 05/08/19 07:01 Intake Total 1140 ml Balance 1140 ml Intake Oral 1140 ml # Voids 8 # Bowel Movements 2 General Appearance: Alert, Awake, No Acute Distress Cardiovascular: Regular Rate and Rhythm Respiratory: Clear to Auscultation Extremities: No Edema (On right LE. Left has boot/wrap.) Result Diagram: 05/06/1951105/06/19511 Assessment and Plan Problems: (1) Pre-op evaluation Assessment & Plan: Low to moderate risk for cardiac or pulmonary complications related to surgery secondary to age and smoking history. She has no worrisome signs or symptoms. CXR and ECG are wnl. No further testing needed before surgery. She is now through alcohol withdrawal so can proceed to surgery. (2) Bimalleolar fracture of left ankle Status: Acute Assessment & Plan: She presented after two falls the day before admission. Dr Ribeiro is planning surgical repair. (3) Right wrist fracture Status: Acute Assessment & Plan: Now reduced and splinted, anticipate surgical stabilization in near future. (4) Alcohol abuse Status: Chronic Assessment & Plan: She appears to be through the withdrawal. Last dose of Valium was on 05/07 at 1357. In total, she received about 130mg of Valium. Last scored a 9 on the CIWA. (5) Alcohol intoxication Status: Resolved Assessment & Plan: MORE 299 on admission. The patient is interested in rehabilitation. Shiela Mchugh NP working on inpatient rehab in [place]. TB test was placed for admission to inpatient facility. Exam Sepsis Risk: No Definite Risk Problem Qualifiers (1) Alcohol intoxication: Complication of substance-induced condition: uncomplicated Qualified Codes: F10.920 - Alcohol use, unspecified with intoxication, uncomplicated KANDI MAGDALENO MD May 08, 2019 11:54
[2019-05-08] MEDS ORDERED: PROMETHAZINE 25 MG/ML 1 ML AMP ONE (13:34)
[2019-05-08 13:41] VITALS: BP 131/84
--- NOTE | 2019-05-08 16:43 | NUR ---
Physical Therapy Impression Pt educated in and performed slide board transfer from bed<>chair with CGA x2 and assistance to maintain NWB to L LE. Pt unable to maintain L LE NWB toward end of each transfer. Recommendations pending progress. Physical Therapy Goals 1. Mod I bed mobility. 2. SBA transfers. 3. SBA ambulation x25' with most appropriate assistive device maintaining appropriate weightbearing through R UE and L LE. 4. Ascend/descend stairs appropriate for discharge destination. Patient's Goals
[2019-05-08 19:14] VITALS: BP 133/89
[2019-05-08] MEDS: PROMETHAZINE 25 MG/ML 1 ML AMP IVP PRN (21:36)
[2019-05-09] VITALS (8 sets, daily range): BP systolic 111–146; BP diastolic 78–91
[2019-05-09] MEDS: PROMETHAZINE 25 MG/ML 1 ML AMP IVP PRN (08:30)
[2019-05-09] MEDS: THIAMINE HCL 100 MG TAB PO SCH (09:06)
[2019-05-09] MEDS: POLYETHYLENE GLYCOL 17 GM PKT PO SCH (09:06)
[2019-05-09] MEDS: DOCUSATE SODIUM 100 MG CAP PO SCH ×2 (09:07→22:02)
[2019-05-09] MEDS: FOLIC ACID 1 MG TAB PO SCH (09:07)
[2019-05-09] MEDS: NICOTINE 7 MG/24 HR PATCH TD SCH (09:51)
[2019-05-09] MEDS: traMADol 50 MG TAB PO PRN ×2 (09:52→17:57)
[2019-05-09] MEDS: NYSTATIN 100,000 U/GM PWD 15GM TP SCH ×2 (09:52→22:02)
--- NOTE | 2019-05-09 09:54 | Hospitalist Progress Note ---
Subjective Progress Notes Subjective She reports some abdominal pain and nausea. One episode of emesis last PM. No fever. No dysuria/hematuria. Physical Exam Vital Signs Date Time Temp Pulse Resp B/P (MAP) Pulse Ox O2 Delivery O2 Flow Rate FiO2 05/09/19 07:48 99.3 107 22 145/87 (106) 93 Nasal Cannula 0.5 Intake and Output 05/09/19 07:01 Intake Total 420 ml Balance 420 ml Intake Oral 420 ml # Voids 11 # Bowel Movements 1 General Appearance: Alert, Awake Cardiovascular: Regular Rate and Rhythm Respiratory: Clear to Auscultation GI: Other (soft with reported tenderness in RUQ/epigastrium/noguarding or rebound) Extremities: Warm, Perfused, Other (LLE in splint) Result Diagram: 05/06/1951105/06/19511 Assessment and Plan Problems: (1) Alcohol abuse Status: Chronic Assessment & Plan: She appears to be through the withdrawal. Last dose of Valium was on 05/07 at 1357. Will stop CIWA. She is planning on alcohol rehab after acute medical problems resolved. (2) Bimalleolar fracture of left ankle Status: Acute Assessment & Plan: She presented after two falls the day before admission. Dr Ribeiro is planning surgical repair on Monday05/10/19. (3) Right wrist fracture Status: Acute Assessment & Plan: Now reduced and splinted. Surgical correction with Dr. Ribeiro planned for Monday05/10/19. (4) Pre-op evaluation Assessment & Plan: Low to moderate risk for cardiac or pulmonary complications related to surgery secondary to age and smoking history. CXR and ECG are unremarkable. She now appears to be through alcohol withdrawal so should be able to proceed to surgery. (5) Alcohol intoxication Status: Resolved Assessment & Plan: MORE 299 on admission. The patient is interested in rehabilitation. Shiela Mchugh PRINCIPAL BIOINFORMATICS SPECIALIST working on inpatient rehab in [place]. PPD (placed for admission to inpatient facility) is negative. (6) Abdominal pain Status: Acute Assessment & Plan: Will check labs. Further work-up and treatment pending results. Exam Sepsis Risk: No Definite Risk Problem Qualifiers (1) Alcohol intoxication: Complication of substance-induced condition: uncomplicated Qualified Codes: F10.920 - Alcohol use, unspecified with intoxication, uncomplicated PETE LANDIS MD May 09, 2019 09:54
[2019-05-09 10:55] LABS: PLATELET COUNT, AUTOMATED 165 K/uL (150-450)
--- NOTE | 2019-05-09 11:48 | Medical Nutrition Therapy ---
Nutrition Anthropometrics Height (Inches): 65.00 Height (Calculated Centimeters: 165.615317 Weight (Pounds): 168 Weight (Calculated Kilograms): 76.204 BMI: 28 Shar Nutrition Score: Adequate Shar Nutrition Risk Score: 15 Dietary Referral Nutrition Risk Factors: Nutrition Risk Comment: Physical Findings Physical Appearance: Overweight BMI 25-29 Skin Appearance Skin Appearance: Edema Edema Location Modifier: Left Edema Location: Foot Type of Edema: Degree of Edema: 1+ Gastrointestinal Symptoms GI Symtoms: Nausea Tube Present: Bowel Sounds: Recent Bowel Pattern: Stool Characteristics: Nutrition/Food History Poor (Food sounds good, but has not been sitting well) Breakfast: Granola Bar or Yogurt Lunch: [place] Dinner: Spaghetti or Salad Nutritional Diagnosis Nutritional Risk Acuity 3: Alcohol abuse Nutritional Risk Acuity 4: Good Appetite Past Medical History: Alcohol abuse, nephrectomy Nutritional Acuity: 3-Mild Energy Requirement: 1848 (HBE) Protein Requirement: 61 (.8g/kg) Fluid Requirement: 2291 (30mL/kg) Diet Type: Diet as Tolerated DESIREE/REG Nutrition Intervention: Cont diet as ordered Nutrition Monitoring & Eval Nutrition Goals: Eat 90-100% Meal Nutrition Follow-Up: Fair Intake RD Patient Assessment Time: [address] Assessment Type: RD Assessment Patient Nutrition Acuity: 3-Mild Follow Up Date: May 14, 2019 Nutritional Comment: Pt admitted with wrist and ankle pain after fall. Dx with bimalleolar fracture of lf ankle, rt wrist fracture, and alcohol intoxication with MORE of 229. Currently on DESIREE with 100% intake. Taking thiamine and folic acid. AST of 113 and ALT of 65 are elevated. Total protein of 5.4 and albumin of 2.7 are decreased. Monitor for adequate intake. -AKG 05/09/19-Spoke with pt this am. Pt states food sounds good but has not been sitting well. She has been eating on average 82% x last 9 meals. She reports taking B-complex at home. Discussed trying bland soft foods with less odor to help with digestion/tolerance. Discussed how ETOH can deplete nutrient stores and can have a negative impact on appetite and eating. Left handout on tips for reducing ETOH consumption, encouraged pt to contact with any questions. Will continue to monitor intake and weight.ALEJANDRA DANIELS May 09, 2019 11:48
[2019-05-09] MEDS: DIAZEPAM 10 MG TAB PO PRN ×3 (13:03→16:29)
--- NOTE | 2019-05-09 14:04 | NUR ---
Physical Therapy Impression PT and OT attempted 2x to complete therapy session with pt today. Once in AM, at which time pt refused d/t nausea, agreeing to complete session at self selected time of 1400. When therapy returned at 1400, pt again refused, reporting abdominal pain, and requesting to wait until that was resolved. PT educated pt on importance of mobility in order to decrease risk of secondary complications. Continue with POC Physical Therapy Goals 1. Mod I bed mobility. 2. SBA transfers. 3. SBA ambulation x25' with most appropriate assistive device maintaining appropriate weightbearing through R UE and L LE. 4. Ascend/descend stairs appropriate for discharge destination. Patient's Goals
--- NOTE | 2019-05-09 14:23 | RADIOLOGY IMAGING REPORT ---
FACILITY: [facility] PATIENT NAME: Ninfa Escalera : 1960 MR: [id number] V: [id number] EXAM DATE: ORDERING PHYSICIAN: PETE LANDIS TECHNOLOGIST: Location: [facility] Patient: Ninfa Escalera : 1960 Visit/Account:[id number] Date of Sevice: 05/09/2019 KUB SINGLE VIEW ABDOMEN HISTORY: abdominal pain KUB. FINDINGS: There are five metallic BBs noted in the central and left upper abdomen. Surgical clips seen along t he right L1/2 level. Nonspecific bowel gas pattern. Moderate fecal impaction right colon. No abdom inal mass lesions. No abnormal calcifications. Bony structures unremarkable. IMPRESSION: 1. Unremarkable KUB. Report Dictated By: Ángel Snowden MD at 05/09/2019 2:13 PM Report E-Signed By: Ángel Snowden MD at 05/09/2019 2:16 PM WSN:[email or web address]
[2019-05-09] MEDS ORDERED: ACETAMINOPHEN 325 MG TAB PO PRN (14:40)
--- NOTE | 2019-05-09 15:38 | RADIOLOGY IMAGING REPORT ---
FACILITY: [facility] PATIENT NAME: Ninfa Escalera : 1960 MR: [id number] V: [id number] EXAM DATE: ORDERING PHYSICIAN: PETE LANDIS TECHNOLOGIST: Location: [facility] Patient: Ninfa Escalera : 1960 Visit/Account:[id number] Date of Sevice: 05/09/2019 CHEST SINGLE AP HISTORY: Right upper quadrant pain. COMPARISON: Chest x-ray May 05, 2019. CT scans October 02, 2018 of the abdomen and pelvis. FINDINGS: Cardiomediastinal contours: Heart size is normal. There are prominent pericardial fat pads bilateral ly. Lungs and pleura: There is no finding of an infiltrate, lymphadenopathy or pleural effusion. Bones/soft tissues: There are no findings of a fracture. There has been prior surgery in the right s houlder. There are nodular radiopacities overlying the left upper quadrant that were not seen on the previous CT scan. IMPRESSION: No active disease in the chest. Report Dictated By: Warren Mo MD at 05/09/2019 3:30 PM Report E-Signed By: Warren Mo MD at 05/09/2019 3:32 PM WSN:[email or web address]
[2019-05-09] MEDS ORDERED: IOPAMIDOL 76% 100 ML INFUS BTL 100 ML ONE (17:17)
[2019-05-09] MEDS: MORPHINE 4 MG/ML SDV IVP PRN (22:02)
--- NOTE | 2019-05-09 23:24 | RADIOLOGY IMAGING REPORT ---
FACILITY: [facility] PATIENT NAME: Ninfa Escalera : 1960 MR: [id number] V: [id number] EXAM DATE: ORDERING PHYSICIAN: PETE LANDIS TECHNOLOGIST: Location: [facility] Patient: Ninfa Escalera : 1960 Visit/Account:[id number] Date of Sevice: 05/09/2019 CT ABDOMEN PELVIS W/ CON HISTORY: abdominal pain TECHNIQUE: CT abdomen and pelvis with intravenous contrast. One of the following dose optimization techniques was utilized in the performance of this exam: Autom ated exposure control; adjustment of the mA and/or kV according to the patient's size; or use of an i terative reconstruction technique. Specific details can be referenced in the facility's radiology C T exam operational policy. CONTRAST: 75 mL Isovue-370. COMPARISON: August 02, 2018. FINDINGS: Visualized lung bases: Trace bilateral pleural effusions with associated atelectasis. Hepatobiliary: Moderate to advanced hepatic steatosis. Gallbladder is distended with multiple small gallstones. There is mild/moderate bladder wall thickening. Mild pericholecystic inflammation.. Mild prominence of the common bile duct measuring up to 7 mm with a small calcified gallstone noted distal ly in the common bile duct. The common bile duct measured up to 5 mm on the prior CT. Spleen: Negative. Adrenals: Negative. Pancreas: Negative. Kidneys/: Right kidney is absent. No abnormal soft tissue within the resection bed. Multiple small cysts within the left kidney which is otherwise unremarkable. GI: Mild distal colonic diverticulosis without evidence for diverticulitis. Mild/moderate volume sto ol within the proximal colon. Otherwise negative. Appendix is unremarkable. Vessels/spaces/nodes: Mild atherosclerosis. No visualized lymphadenopathy. No fluid collections. Sm all amount of nonspecific free fluid within the right hemipelvis. Bones/soft tissues: No acute abnormality. Stable mild anterior wedge-shaped compression deformity of L1. IMPRESSION: 1. Cholelithiasis within a prominent gallbladder demonstrating gallbladder wall thickening and mild p ericholecystic inflammation. Findings are concerning for acute cholecystitis. 2. Small calcified gallstone within the distal common bile duct which is borderline prominent measuri ng up to 7 mm. 3. Moderate to advanced hepatic steatosis. 4. Small bilateral pleural effusions. 5. Small amount of nonspecific free fluid within the right hemipelvis. 6. Additional incidental/chronic findings, as above. Results were discussed with PETE LANDIS at 05/09/2019 11:18 PM. Report Dictated By: Jeremiah Fuchs MD at 05/09/2019 10:55 PM Report E-Signed By: Jeremiah Fuchs MD at 05/09/2019 11:18 PM WSN:[email or web address]
[2019-05-10] MEDS ORDERED: NS(*) 0.9% 1000 ML BAG 1,000 ML IV PRN (01:40)
[2019-05-10 03:07] VITALS: BP 118/70
[2019-05-10] MEDS: traMADol 50 MG TAB PO PRN ×2 (03:17→09:53)
[2019-05-10 06:13] LABS: PLATELET COUNT, AUTOMATED 182 K/uL (150-450)
[2019-05-10 07:31] VITALS: BP 98/67
[2019-05-10] MEDS: DOCUSATE SODIUM 100 MG CAP PO SCH (09:08)
[2019-05-10] MEDS: FOLIC ACID 1 MG TAB PO SCH (09:08)
[2019-05-10] MEDS: THIAMINE HCL 100 MG TAB PO SCH (09:08)
[2019-05-10] MEDS: POLYETHYLENE GLYCOL 17 GM PKT PO SCH (09:08)
[2019-05-10] MEDS: NYSTATIN 100,000 U/GM PWD 15GM TP SCH (09:35)
--- NOTE | 2019-05-10 10:19 | RADIOLOGY IMAGING REPORT ---
FACILITY: [facility] PATIENT NAME: Ninfa Escalera : 1960 MR: [id number] V: [id number] EXAM DATE: ORDERING PHYSICIAN: PETE LANDIS TECHNOLOGIST: Location: [facility] [place] Patient: Ninfa Escalera : 1960 Visit/Account:[id number] Date of Sevice: 05/09/2019 GALLBLADDER HISTORY: RUQ pain COMPARISON: CT 05/09/2019. FINDINGS: Gallbladder: Combination of fixed in mobile shadowing gallstones as well as a small amount of sludge. Gallbladder wall is thickened measuring 5-6 mm. Positive sonographic Perera's sign. Bile ducts: There is borderline biliary ductal dilation with the CBD measuring 6 mm. Liver: Coarsened hepatic echotexture likely secondary to steatosis. Pancreas: Negative. Right kidney: Nephrectomy Upper abdominal aorta and IVC: Patent. Ascites: None visualized. Other findings: None significant IMPRESSION: 1. Findings highly concerning for acute cholecystitis with gallstone/sludge, gallbladder wall thicke jalen and a positive sonographic Perera's sign. 2. Common bile duct is borderline dilated measuring 6 mm. Tiny distal common bile duct stone noted on yesterday's CT examination. 3. Hepatic steatosis. Report Dictated By: Grabiel Davis MD at 05/10/2019 10:07 AM Report E-Signed By: Grabiel Davis MD at 05/10/2019 10:14 AM WSN:[id number]
[2019-05-10] MEDS: NICOTINE 7 MG/24 HR PATCH TD SCH ×2 (10:30→11:36)
--- NOTE | 2019-05-10 10:58 | NUR ---
OCCUPATIONAL THERAPY Dressing Assistance: Maximum assistance LB dressing Home Assessment: Not Completed Feeding Assistance: Set-up Feeding Specialized Equipment: None Toilet Use: Total Assistance Verbalizes Needs: Yes Understands Precautions: Pt requires cues to maintain safety/protection of L) LE and R) UE. Cooperative: Yes Family Teaching: No Occupational Therapy Comment:
[2019-05-10 11:23] VITALS: BP 108/75
[2019-05-10] MEDS ORDERED: THIA100T20 PO (11:26)
[2019-05-10] MEDS ORDERED: MORP4VIA IVP (11:26)
[2019-05-10] MEDS ORDERED: FOLI-68 PO (11:26)
[2019-05-10] MEDS ORDERED: PIPE3.3712 IV (11:26)
--- NOTE | 2019-05-10 11:32 | Hospitalist Depart ---
Discharge Summary Reason for Hosp/Final Diag: (1) Acute cholecystitis Hospital Course & Plan: A CT scan did show an inflamed and enlarged gall bladder. She was also noted to have stones in the gallbladder and the common duct was obstructed. An ultrasound did confirm the gallbladder findings, but was unable to verify a stone in the duct. She did have a positive Perera's sign. She will transfer to under the care of Dr. Antoine for ERCP and cholecystectomy. (2) Alcohol abuse Status: Chronic Hospital Course & Plan: She was requiring CIWA protocol, but has not required treatment in the last 24hrs. (3) Bimalleolar fracture of left ankle Status: Acute Hospital Course & Plan: She is scheduled for operative repair with Dr. Romero, but this has been delayed secondary to medical concerns. (4) Right wrist fracture Status: Acute Hospital Course & Plan: She is also scheduled to have this surgically repaired. (5) Alcohol intoxication Status: Resolved Hospital Course & Plan: She did have an elevated alcohol level on admission. Departure Latest Vital Signs Vital Signs 05/10/19 05/10/19 05/10/19 07:31 08:03 10:35 Temp 98.3 Pulse 80 Resp 13 B/P (MAP) 98/67 (77) Pulse Ox 94 O2 Delivery Nasal Cannula O2 Flow Rate 0.5 Weight (Pounds): 168 Result Diagram: 05/10/19 0600 05/10/19 06 Condition: Improved Discharge: Another Hospital Discharge Instructions Home Meds Active Scripts Piperacillin Sodium/Tazobactam (ZOSYN 3.375 GRAM VIAL) 3.375 Gm Vial, 3.375 GM IV Q6H, #1 VIAL Prov:ERIC ROD 05/10/19 Thiamine Hcl (VITAMIN B-1) 100 Mg Tablet, 100 MG PO QDAY, #1 TAB Prov:ERIC ROD 05/10/19 Morphine Sulfate (Morphine Sulfate) 4 Mg/Ml Vial, 1-4 MG IVP Q4H PRN for PAIN, #1 VIAL Prov:ERIC ROD 05/10/19 Folic Acid (FOLIC ACID) 1 Mg Tablet, 1 MG PO QDAY, #1 TAB Prov:MARCELERIC 05/10/19 Reported Medications Fluticasone Prop 44 Mcg (FLOVENT HFA 44 MCG) 44 Mcg Inha, 44 MCG INH, INH 02/04/19 Bupropion Hcl (BUPROPION HCL SR) 150 Mg Tablet.er, 150 MG PO 02/04/19 Melatonin (Melatonin) 1 Mg Tablet.er, 10 PO HS 12/21/17 Gabapentin (GABAPENTIN) 300 Mg Capsule, 300 MG PO BID, CAPSULE 12/21/17 Buspirone Hcl (BUSPIRONE HCL) 15 Mg Tablet, 15 MG PO QAM, pt states only taking 1 QD 12/21/17 Venlafaxine Hcl (EFFEXOR XR) 75 Mg Cap.er.24h, 75 MG PO QAM 12/21/17 Discontinued Reported Medications Ketotifen Fumarate (ALAWAY) 10 Ml Drops, 1-2 DROP OP PRN PRN for ITCHY EYES 12/06/18 Carboxymethyl/Gly/Poly80/Pf (REFRESH OPTIVE ADVANCED DROPS) 1 Each Droperette, 1-2 GTT OP Q12H PRN for ITCHY EYES 12/06/18 Cholecalciferol (Vitamin D3) (VITAMIN D3) 1,000 Unit Tablet, PO DAILY, TAB 12/21/17 Cyanocobalamin (Vitamin B-12) (VITAMIN B-12) 250 Mcg Tablet, PO DAILY 12/21/17 Ascorbic Acid (VITAMIN C) 500 Mg Tablet, PO DAILY, TAB 12/21/17 Multivitamin (MULTIVITAMINS) 1 Each Capsule, 1 EACH PO DAILY, CAPSULE 12/21/17 [Nicotrol Cartridge] No Conflict Check, 1 EA PO PRN PRN for NICOTINE REPLACEMENT 12/06/18 Nicotine (NICOTROL) 10 Mg/Inh Ctr, 10 MG INH PRN PRN for NICOTINE REPLACEMENT 12/06/18 Discontinued Scripts Ondansetron Hcl (ZOFRAN) 4 Mg Tablet, 4 MG PO Q8H for Nausea, #15 TAB 0 Refills Prov:ROSA CHERRY MD 02/04/19 Activity: As Tolerated Special Instructions: Venous Thromboembolism Antithrombotics Is Pt On Any Antithrombotics?: No Problem Qualifiers (1) Alcohol intoxication: Complication of substance-induced condition: uncomplicated Qualified Codes: F10.920 - Alcohol use, unspecified with intoxication, uncomplicated ERIC ROD DO May 10, 2019 11:32
[2019-05-10] MEDS: MORPHINE 4 MG/ML SDV IVP PRN ×2 (11:34→15:43)
[2019-05-10] MEDS ORDERED: PIPERACILLIN/TAZO*3.375GM VIAL 3.375 GM in NS(*) 0.9% 100 ML MINI-BAG 100 ML IVPB SCH (12:00)
--- NOTE | 2019-05-10 12:35 | NUR ---
PHYSICAL THERAPY INFORMATION TRANSFER SHEET BED MOBILITY: Modified I/ AE TRANSFERS: Mod A x2-3 for slide board. Verbal cues Weightbearing Status: NWB L LE; R UE Verbalizes Needs: Yes Understands Directions Yes Cooperative: Yes Family Teaching: No Physical Therapy Comment:
[2019-05-10 15:29] VITALS: BP 104/77
== END 2019-05-10 17:05 | disposition short-term general hospital (02) | DRG 563 ==
LOC: ER 14:38 → MED 16:20
PROVIDERS: ADMIT Internal Medicine; ATTEND Internal Medicine
PROC: 0PSJXZZ Reposition Left Radius, External Approach (ICD-10-PCS; principal; 2019-05-04)
DX: S82.842A Displaced bimalleolar fracture of left lower leg, initial encounter for closed fracture (principal); S52.502A Unspecified fracture of the lower end of left radius, initial encounter for closed fracture; F10.230 Alcohol dependence with withdrawal, uncomplicated; K80.01 Calculus of gallbladder with acute cholecystitis with obstruction; S52.612A Displaced fracture of left ulna styloid process, initial encounter for closed fracture; F41.8 Other specified anxiety disorders; F10.220 Alcohol dependence with intoxication, uncomplicated; F17.210 Nicotine dependence, cigarettes, uncomplicated; Y90.8 Blood alcohol level of 240 mg/100 ml or more; Z81.1 Family history of alcohol abuse and dependence; W01.0XXA Fall on same level from slipping, tripping and stumbling without subsequent striking against object, initial encounter; Y92.009 Unspecified place in unspecified non-institutional (private) residence as the place of occurrence of the external cause; Y99.8 Other external cause status
CPT/HCPCS: 36415; 71045; 74018; 74177; 76705; 80320; 80329; 81001; 81025; 82040; 82247; 82310; 82374; 82435; 82565; 82947; 83690; 83735; 84075; 84132; 84155; 84295; 84443; 84450; 84460; 84520; 85025; 86580; 87088; 93005; 96374; 96375; 97163; 97167; 99285; J2270; J2543; J2550; J3411; J3480; J7030; Q9967

== ENCOUNTER → 2019-05-10 | Outpatient (CLI) | payer BC ==
[~2019-05-10] MED LIST changes: +DOCU-202 PO; +FOLI-68 PO; +LEVO750T27 PO; +MORP4VIA IVP; +PIPE3.3712 IV; +THIA100T20 PO; +TRAM-420 PO
[2019-05-15 12:12] VITALS: BMI 29.1
== END ==
LOC: AMB 16:43
PROVIDERS: ATTEND Nurse Practitioner
DX: R10.11 Right upper quadrant pain (principal); R68.2 Dry mouth, unspecified
CPT/HCPCS: A0425; A0428

== ENCOUNTER 2019-05-14 17:14 | Inpatient (IN) | payer BC ==
[~2019-05-14] VITALS: Ht 165.1 cm; Wt 79.5 kg
[~2019-05-14 17:14] MED LIST changes: -DOCU-202 PO; -LEVO750T27 PO; -TRAM-420 PO
[2019-05-14 17:20] VITALS: BP 160/72
[2019-05-14 19:30] VITALS: BP 131/85
[2019-05-14] MEDS ORDERED: INFLUENZA VIRUS VAC 0.5ML SYR IM ONLY ONE (20:30)
[2019-05-14] MEDS ORDERED: MAGNESIUM HYDROXIDE* 30ML UDCP PO PRN (20:35)
[2019-05-14] MEDS ORDERED: BISACODYL 10 MG SUPP PR PRN (20:35)
[2019-05-14] MEDS: ACETAMINOPHEN 500 MG TAB PO PRN (20:54)
[2019-05-14] MEDS: traMADol 50 MG TAB PO PRN (20:54)
--- NOTE | 2019-05-14 21:11 | History & Physical ---
History of Present Illness History of Present Illness 58yo female with a h/o anxiety/depression, alcohol abuse and recent left ankle/right wrist fractures who has been transferred back to [facility] after having an ERCP and cholecystectomy done at [facility]. She was admitted to [facility] after a fall during which time she sustained a left ankle fracture and a right wrist fracture. During her admission she had EtOH withdrawal. She also developed abdominal pain prompting a CT scan which revealed cholecystitis with evidence of stones within the common bile duct. She was transferred to [facility] for surgical management and ERCP. She had ERCP/sphincterotomy (Dr. Antoine 05/12), lap gallito with drain (Dr. Barron 05/12). She denies any cp/sob. She does get abdominal pain on the right with movement and deep breaths since her gallito. No reported n/v. There were no reported concerns with the cholecystectomy at [facility]. History Problems: (1) Anxiety Status: Chronic (2) Status post nephrectomy (3) History of depression Status: Chronic (4) Ankle fracture, bimalleolar, closed Status: Acute (5) Wrist fracture Status: Acute (6) Status post cholecystectomy Status: Acute Home Meds Active Scripts Piperacillin Sodium/Tazobactam (ZOSYN 3.375 GRAM VIAL) 3.375 Gm Vial, 3.375 GM IV Q6H, #1 VIAL Prov:ERIC ROD DO 05/10/19 Thiamine Hcl (VITAMIN B-1) 100 Mg Tablet, 100 MG PO QDAY, #1 TAB Prov:ERIC ROD DO 05/10/19 Morphine Sulfate (Morphine Sulfate) 4 Mg/Ml Vial, 1-4 MG IVP Q4H PRN for PAIN, #1 VIAL Prov:ERIC ROD DO 05/10/19 Folic Acid (FOLIC ACID) 1 Mg Tablet, 1 MG PO QDAY, #1 TAB Prov:ERIC ROD DO 05/10/19 Reported Medications Fluticasone Prop 44 Mcg (FLOVENT HFA 44 MCG) 44 Mcg Inha, 44 MCG INH, INH 02/04/19 Bupropion Hcl (BUPROPION HCL SR) 150 Mg Tablet.er, 150 MG PO 02/04/19 Melatonin (Melatonin) 1 Mg Tablet.er, 10 PO HS 12/21/17 Gabapentin (GABAPENTIN) 300 Mg Capsule, 300 MG PO BID, CAPSULE 12/21/17 Buspirone Hcl (BUSPIRONE HCL) 15 Mg Tablet, 15 MG PO QAM, pt states only taking 1 QD 12/21/17 Venlafaxine Hcl (EFFEXOR XR) 75 Mg Cap.er.24h, 75 MG PO QAM 12/21/17 Discontinued Reported Medications Ketotifen Fumarate (ALAWAY) 10 Ml Drops, 1-2 DROP OP PRN PRN for ITCHY EYES 12/06/18 Carboxymethyl/Gly/Poly80/Pf (REFRESH OPTIVE ADVANCED DROPS) 1 Each Droperette, 1-2 GTT OP Q12H PRN for ITCHY EYES 12/06/18 Cholecalciferol (Vitamin D3) (VITAMIN D3) 1,000 Unit Tablet, PO DAILY, TAB 12/21/17 Cyanocobalamin (Vitamin B-12) (VITAMIN B-12) 250 Mcg Tablet, PO DAILY 12/21/17 Ascorbic Acid (VITAMIN C) 500 Mg Tablet, PO DAILY, TAB 12/21/17 Multivitamin (MULTIVITAMINS) 1 Each Capsule, 1 EACH PO DAILY, CAPSULE 12/21/17 Allergies: Coded Allergies: No Known Drug Allergies (Unverified , 05/04/19) Patient History: FH: alcoholism FATHER, Hx Smoking: Yes (5 cigarettes/week) Smoking Status: Current: Every Day Smoker Exposure to Second Hand Smoke?: No Caffeine Intake: Coffee, Soda Caffeine/Cups Per Day: 3-4 Hx Alcohol Use: Yes (EtOH abuse; drinks 2-3 pints of vodka a day) Hx Substance Use Disorder: No Social Drug Use: Former Social Drugs: Marijuana Review of Systems Other Not review except what is in the HPI Exam Vital Signs Vital Signs Date Time Temp Pulse Resp B/P (MAP) Pulse Ox O2 Delivery O2 Flow Rate FiO2 05/14/19 19:30 99.0 90 14 131/85 (100) 92 Room Air General Appearance: Alert, Awake, No Acute Distress Neuro: No Gross deficits ENT: Moist Mucous Membranes Cardiovascular: Regular Rate and Rhythm Respiratory: Clear to Auscultation Extremities: Warm, Perfused Integumentary: No Jaundice, No Cyanosis Assessment and Plan Problems: (1) Ankle fracture, bimalleolar, closed Status: Acute Assessment & Plan: Bimalleolar fracture of the left ankle with ankle mortise joint instability. Occurred after a fall on 05/03. Surgery tomorrow. APAP, Tramadol, and Oxycodone for pain. Also, continuing chronic gabapentin. Will switch to IV morphine when NPO. She will need to be in a rehab facility after surgery because of the limitations added by the wrist fracture, limited help at home and a home environment not conducive to easy ambulation. (2) Wrist fracture Status: Acute Assessment & Plan: Displaced comminuted fracture of distal left radius. Avulsion fracture of the left ulnar styloid process. After a fall on 05/04. Ortho aware. (3) Status post cholecystectomy Status: Acute Assessment & Plan: She was transferred to [facility] for surgical management and ERCP. She had ERCP/sphincterotomy (Dr. Antoine 05/12), lap gallito with drain (Dr. Barron 05/12). It appears that she had one dose of Unasyn post-op. Her Tbil was decreasing and wasn't checked today. Will check CMP tomorrow. (4) Alcohol use disorder, severe, dependence Status: Chronic Assessment & Plan: She is through the withdrawal. After surgery, will need to discuss with her about talking with S counseling. (5) Anxiety Status: Chronic Assessment & Plan: Continue chronic BuSpar. (6) History of depression Status: Chronic Assessment & Plan: Continue chronic Bupropion and Effexor. Copies to: SERVANDO ROLLINS MD; CHANTE GRAVES MD; NUNU ANDREW ; Venous Thromboembolism Antithrombotics Is Pt On Any Antithrombotics?: No Problem Qualifiers (1) Wrist fracture: Laterality: left KANDI MAGDALENO MD May 14, 2019 21:11
[2019-05-14] MEDS: MELATONIN 3 MG TAB PO SCH (22:06)
[2019-05-14] MEDS: GABAPENTIN 300 MG CAP PO SCH (22:06)
[2019-05-14] MEDS: NS(*) 0.9% 1000 ML BAG 1,000 ML IV PRN (22:06)
[2019-05-14] MEDS: DOCUSATE SODIUM 100 MG CAP PO SCH (22:06)
[2019-05-15] VITALS (8 sets, daily range): BP systolic 112–140; BP diastolic 76–97; Ht 165.1 cm; Wt 79.5 kg
[2019-05-15] MEDS: oxyCODONE HCL 5 MG CAP PO PRN (00:25)
[2019-05-15 06:26] LABS: PLATELET COUNT, AUTOMATED 312 K/uL (150-450)
[2019-05-15 06:33] LABS: INR 0.97
[2019-05-15] MEDS: POLYETHYLENE GLYCOL 17 GM PKT PO SCH (07:36)
[2019-05-15] MEDS: DOCUSATE SODIUM 100 MG CAP PO SCH (07:37)
[2019-05-15] MEDS: buPROPion XL 150 MG TABCR PO SCH (07:37)
[2019-05-15] MEDS: traMADol 50 MG TAB PO PRN (07:37)
[2019-05-15] MEDS: FOLIC ACID 1 MG TAB PO SCH (07:37)
[2019-05-15] MEDS: busPIRone HCL 5 MG TAB PO SCH (07:37)
[2019-05-15] MEDS: GABAPENTIN 300 MG CAP PO SCH (07:37)
[2019-05-15] MEDS: ACETAMINOPHEN 500 MG TAB PO PRN (07:37)
[2019-05-15] MEDS: VENLAFAXINE XR 75 MG CAPCR PO SCH (07:38)
--- NOTE | 2019-05-15 09:44 | Hospitalist Progress Note ---
Subjective Progress Notes Subjective This patient was readmitted to have her ankle and wrist fractures repaired. She had no acute changes overnight. Patient Complains of: Cardiovascular: No: Chest Pain Respiratory: No: Shortness of Breath Physical Exam Vital Signs Date Time Temp Pulse Resp B/P (MAP) Pulse Ox O2 Delivery O2 Flow Rate FiO2 05/15/19 08:41 93 Room Air 05/15/19 07:42 98.6 83 16 132/89 (103) 05/15/19 03:08 2.0 Intake and Output 05/15/19 07:01 # Voids 2 Cardiovascular: Regular Rate and Rhythm Respiratory: Clear to Auscultation Result Diagram: 05/15/19 0552 05/15/19 0552 Assessment and Plan Problems: (1) Ankle fracture, bimalleolar, closed Status: Acute Assessment & Plan: Bimalleolar fracture of the left ankle with ankle mortise joint instability. Occurred after a fall on 05/03. Surgery is scheduled for later today. (2) Wrist fracture Status: Acute Assessment & Plan: Displaced comminuted fracture of distal left radius. Management per orthopedics. (3) Status post cholecystectomy Status: Acute Assessment & Plan: She was transferred to [facility] for surgical management and ERCP. She had ERCP/sphincterotomy (Dr. Antoine 05/12), lap gallito with drain (Dr. Barron 05/12). It appears that she had one dose of Unasyn post-op. Her Tbil was decreasing and wasn't checked today. (4) Alcohol use disorder, severe, dependence Status: Chronic Assessment & Plan: She is through the withdrawal. After surgery, will need to discuss with her about talking with S counseling. (5) Anxiety Status: Chronic Assessment & Plan: Continue chronic BuSpar. (6) History of depression Status: Chronic Assessment & Plan: Continue chronic Bupropion and Effexor. Exam Sepsis Risk: No Definite Risk Problem Qualifiers (1) Wrist fracture: Laterality: left ERIC ROD DO May 15, 2019 09:44
[2019-05-15] MEDS ORDERED: MORPHINE 2 MG/ML SYR IVP PRN (10:00)
[2019-05-15] MEDS: NS(*) 0.9% 1000 ML BAG 1,000 ML IV PRN (12:04)
[2019-05-15] MEDS ORDERED: NORMOSOL R SOLN(*) 1000 ML BAG 1,000 ML IV PRN (16:30)
[2019-05-15] MEDS ORDERED: LIDOCAINE MPF 1% 5 ML VIAL ONE (18:13)
[2019-05-15] MEDS ORDERED: METOCLOPRAMIDE 10 MG/2 ML SDV ONE (18:13)
[2019-05-15] MEDS ORDERED: ONDANSETRON 4 MG/2 ML VIAL ONE (18:13)
[2019-05-15] MEDS ORDERED: PROPOFOL EMUL(*) 10MG/ML 20 ML 20 ML ONE (18:13)
[2019-05-15] MEDS ORDERED: DEXAMETHASONE SOD 4 MG/ML VIAL ONE (18:15)
[2019-05-15] MEDS ORDERED: fentaNYL CITR 250 MCG/5 ML AMP ONE (18:16)
[2019-05-15] MEDS ORDERED: KETAMINE HCL-NS 50 MG/5 ML SYR ONE (18:16)
[2019-05-15] MEDS ORDERED: FAMOTIDINE(*) 20MG/50ML PREMIX 50 ML IVPB ONE (18:30)
[2019-05-15] MEDS ORDERED: MIDAZOLAM 2 MG/2 ML VIAL ONE (18:44)
[2019-05-15] MEDS ORDERED: ceFAZolin 1 GM VIAL ONE ×2 (19:34→20:47)
[2019-05-16] VITALS (14 sets, daily range): BP systolic 92–134; BP diastolic 57–110
[2019-05-16] MEDS ORDERED: diphenhydrAMINE 25 MG CAP PO PRN (00:05)
[2019-05-16] MEDS ORDERED: ONDANSETRON 4 MG/2 ML VIAL IVP PRN (00:05)
[2019-05-16] MEDS ORDERED: FLUSH 10 ML SYR IVP PRN (00:05)
[2019-05-16] MEDS ORDERED: MORPHINE 50 MG/50 ML PCA BAG IV PRN (00:05)
[2019-05-16] MEDS ORDERED: MAGNESIUM CITRATE 300 ML BTL PO PRN (00:05)
[2019-05-16] MEDS ORDERED: KCL/D5LR 20 MEQ/1000 ML PREMIX 1,000 ML IV PRN (00:05)
[2019-05-16] MEDS ORDERED: PROMETHAZINE 25 MG/ML 1 ML AMP IVP PRN (00:05)
[2019-05-16] MEDS ORDERED: NALOXONE HCL 0.4 MG/ML VIAL IVP PRN (00:05)
[2019-05-16] MEDS ORDERED: PCA LOCKBOX KEYS XX ONE ×2 (00:21→00:32)
[2019-05-16] MEDS: MELATONIN 3 MG TAB PO SCH ×2 (01:02→21:25)
[2019-05-16] MEDS: ceFAZolin(*) 1 GM VIAL 1 GM in NS(*) 0.9% 100 ML MINI-BAG 100 ML IVPB SCH ×3 (01:02→17:04)
[2019-05-16] MEDS: DOCUSATE SODIUM 100 MG CAP PO SCH ×3 (01:02→21:25)
[2019-05-16] MEDS: GABAPENTIN 300 MG CAP PO SCH ×3 (01:02→21:25)
[2019-05-16] MEDS: VENLAFAXINE XR 75 MG CAPCR PO SCH (08:27)
[2019-05-16] MEDS: POLYETHYLENE GLYCOL 17 GM PKT PO SCH (08:30)
[2019-05-16] MEDS: buPROPion XL 150 MG TABCR PO SCH (08:30)
[2019-05-16] MEDS: busPIRone HCL 5 MG TAB PO SCH (08:30)
[2019-05-16] MEDS: FOLIC ACID 1 MG TAB PO SCH (08:30)
--- NOTE | 2019-05-16 08:35 | OPERATIVE REPORT 1 ---
EVENT DATE: May 15, 2019 SURGEON: Kelby Ribeiro MD ANESTHESIOLOGIST: Homero Mello MD ANESTHESIA: General plus supraclavicular block. SHEET TESTER: Magdi Kitchen PA-C. PREOPERATIVE DIAGNOSIS 1. Right intraarticular multipart distal radius fracture. 2. Left distal fibula fracture with displacement. POSTOPERATIVE DIAGNOSIS 1. Right intraarticular multipart distal radius fracture. 2. Left distal fibula fracture with displacement. PROCEDURE PERFORMED 1. Open reduction internal fixation of right multipart intraarticular distal radius fracture using a volar plate (88227). 2. Open reduction and internal fixation of distal fibula fracture with avulsion fracture of medial malleolus ([id number]). ESTIMATED BLOOD LOSS Minimal. IV FLUIDS 1000. TOURNIQUET TIME 59 minutes for the right upper upper extremity. 44 minutes for the left lower extremity. IMPLANTS USED Right 3-hole standard Shivani skeletal dynamics plate with multiple screws for the arm and for the leg it was a left 9-hole fibular plate from the [employer] 28 systems. DESCRIPTION OF PROCEDURE The patient was brought into the operating room and placed on the OR table in supine position with the hand to the right side. After obtaining adequate supraclavicular block and a general anesthetic, the right upper extremity and the left lower extremity were prepped and draped in the usual sterile fashion. Starting with the right upper extremity, the limb was exsanguinated and the tourniquet was inflated to 250 mmHg. A volar incision was made over the flexor carpi radialis, initially just as a longitudinal incision. We opened the sheath of the FCR and retracted with a Scobey drain to the radial side. We identified the flexor pollicis longus muscle belly retracting it to the ulnar side. The pronator quadratus was opened. The sheath was taken down all the way to expose the volar flare. There was extensive displacement and shortening making the fracture reduction difficult because it was 1-1/2 weeks old. After freeing up the fascial tissue on the shaft fracture, we were able to take it and pronate it out of the way exposing the underlying fragments on the articular surface. We used a curette to clean them and prepare them for repair. We also opened the sheath all the way down to the margin of the joint. Once we had this fully exposed, I used the clamp proximally and traction distally to firmly pull down and the bring it into volar direction and hold it. We applied the plate temporarily, placed a K-wire into the plate along with a pad beneath the plate to hold it into greater tilt than normal and then we placed K-wires to test the position. It looked like we were right on the watershed line and the wires were just in the subchondral bone where they should be. We consequently did not move the plate further and placed our distal pegs, some of which were smooth and some were threaded. We checked the C-arm to confirm that none of them violated the joint and that they were in subchondral position. Afterwards, I took the pad out from beneath the plate and lowered it down on the K-wire previously placed and then used our first nonlocking screw from the 3.5 set. We then filled the rest of the screws with 3.5 locking screws. The C-arm was used to check position. It looked like there was good reduction with normal volar tilt and good inclination. One of the screws was just adjacent to the sigmoid notch but it looked like it was a little bit too close, so I did remove this once we had more than enough locking pegs in the rest of the fixation. The wound was irrigated. We closed the pronator quadratus and the capsule on the wrist and then deflated the tourniquet, controlled bleeding with bipolar cautery and then closed skin with nylon. She was given a dry sterile dressing and a volar splint then left in place before we awoke her so we could do the ankle. On the left ankle, after preparing the leg, the incision was made over the lateral aspect of the fibula having exsanguinated the limb and inflating the tourniquet. Here too, the fracture was quite displaced and there was a lot of callus formation between the fragments that had to be cleaned out. Once we got it, unfortunately it was evident that she had significant osteopenia. The sharp sharp bone reduction forceps could not be used because anytime we tried to use it it would just plunge through her cortex. We set the Gackle plate while holding the fracture with the fibular clamp. We placed one interfragmentary screw and then secured the Gackle plate with mostly locking screws. We checked the C-arm and we changed two screws to slightly shorter screws and then got final images. It looked like the mortis was restored. The wound was irrigated and then we closed the fascia over the plate. The tourniquet was deflated. Bipolar cautery was used for hemostasis, followed by closure with 3-0 Vicryl and 4-0 Nylon. She was given a dry sterile dressing and a sugar-tong and posterior splint and was awakened and transferred to the recovery area in stable condition. CHELSEY
--- NOTE | 2019-05-16 09:35 | NUR ---
Physical Therapy Impression PT/OT co-eval complete. Pt still requiring frequent cueing to maintain NWB status. Pt performed supine to sit transfer with SBA, use of bed rail, and verbal cues to maintain NWB status. Pt reports performing stand pivot transfers when at [facility] prior to current admission. Pt performed 2x stand pivot transfers with ModAx2. Pt requiring verbal cues and assistance to maintain NWB status for R UE/L LE. First transfer from EOB to wheelchair, second from wheelchair to reclining chair. Pt demonstrating adequate strength to perform transfers, but unsafe to perform on own due to inability to independently maintain NWB status. Pt left sitting in reclining chair with all needs met and call light in reach. Pt would benefit from further skilled PT care to continue to work on safe transfer techniques. Recommend care home rehab. Physical Therapy Goals 1. Pt to perform bed mobility with Maria Del Rosario, while maintaining NWB status. 2. Pt to perform transfers with Nahomy, while maintaining NWB status Patient's Goals
[2019-05-16] MEDS: CALCIUM CARBONATE/VITAMIN D3 PO SCH (10:16)
[2019-05-16] MEDS: oxyCODON/ACET (*)5/325MG (CII) 1 TAB TAB PO PRN ×3 (10:17→19:44)
[2019-05-16] MEDS: ENOXAPARIN 40 MG/0.4ML SYR SC SCH (10:18)
--- NOTE | 2019-05-16 10:47 | NUR ---
Occupational Therapy Impression SBA supine to sit. Mod Ax1-2 stand pivot with no AD. Bed<>w/c. W/c<>chair. Pt with difficulty maintaining NWB L) LE and NWB R) UE. She will benefit from further long-term rehab to improve strength/transfers and optimize (I) for ADLs. Pt with high PLOF prior, (I) with all ADLs/IADLs and living alone. Occupational Therapy Goals 1) Pt will be Min A toilet task. 2) Pt will be Min A LB dressing. Patient's Goal
--- NOTE | 2019-05-16 12:16 | Hospitalist Progress Note ---
Subjective Progress Notes Subjective She had surgical repair of her right wrist and left ankle yesterday. She reports pain to the wrist today. Patient Complains of: Cardiovascular: No: Chest Pain Respiratory: No: Shortness of Breath Physical Exam Vital Signs Date Time Temp Pulse Resp B/P (MAP) Pulse Ox O2 Delivery O2 Flow Rate FiO2 05/16/19 11:09 99.2 85 20 112/63 (79) 91 Nasal Cannula 2.0 Intake and Output 05/16/19 01:01 Intake Total 1600 ml Balance 1600 ml Intake Oral 300 ml IV Total 1300 ml # Voids 4 # Bowel Movements 1 General Appearance: Alert, Awake, No Acute Distress, Afebrile Neuro: No Gross deficits Cardiovascular: Regular Rate and Rhythm Respiratory: No Respiratory Distress, Clear to Auscultation GI: Soft and Non-Tender Extremities: Warm, Perfused; No Edema Psych: Alert & Oriented X3, Appropriate Mood & Affect Result Diagram: 05/15/19 0552 05/15/19 0552 Assessment and Plan Problems: (1) Ankle fracture, bimalleolar, closed Status: Acute Assessment & Plan: Bimalleolar fracture of the left ankle with ankle mortise joint instability. Occurred after a fall on 05/03. Surgical repair by Dr. Ribeiro 05/15. NWB to left lower extremity. PT/OT ordered. Consult [facility] for rehab/ SNF options. She was placed on Lovenox for DVT prophylaxis. (2) Wrist fracture Status: Acute Assessment & Plan: Displaced comminuted fracture of distal left radius. Management per orthopedics. NWB. (3) Status post cholecystectomy Status: Acute Assessment & Plan: She was transferred to [facility] for surgical management and ERCP. She had ERCP/sphincterotomy (Dr. Antoine 05/12), lap gallito with drain (Dr. Barron 05/12). It appears that she had one dose of Unasyn post-op. Her Tbil was decreasing. (4) Alcohol use disorder, severe, dependence Status: Chronic Assessment & Plan: She is through the withdrawal. She is working with [facility] for rehab options. (5) Anxiety Status: Chronic Assessment & Plan: Continue chronic BuSpar. (6) History of depression Status: Chronic Assessment & Plan: Continue chronic Bupropion and Effexor. Exam Sepsis Risk: No Definite Risk Problem Qualifiers (1) Wrist fracture: Laterality: left OBRIEN,KEATON M DRY CELL TESTER May 16, 2019 12:16
--- NOTE | 2019-05-16 12:37 | NUR ---
This Physical Therapist or Senior Software Project Manager was present for the entire physical therapy session directing the services, making the skilled judgement, and was not engaged in treating another patient or doing another task at the same time as the treatment session. Addendum: 05/16/19 at 1237 by MELISSA MARSHALL PT Amended: Links added.
[2019-05-17 00:49] VITALS: BP 124/76
[2019-05-17] MEDS: oxyCODON/ACET (*)5/325MG (CII) 1 TAB TAB PO PRN ×5 (01:10→22:41)
[2019-05-17 03:38] VITALS: BP 119/74
[2019-05-17] MEDS: traMADol 50 MG TAB PO PRN (03:44)
[2019-05-17 06:18] LABS: PLATELET COUNT, AUTOMATED 375 K/uL (150-450)
[2019-05-17 06:53] VITALS: BP 124/75
[2019-05-17] MEDS: ENOXAPARIN 40 MG/0.4ML SYR SC SCH (08:46)
[2019-05-17] MEDS: POLYETHYLENE GLYCOL 17 GM PKT PO SCH (08:46)
[2019-05-17] MEDS: busPIRone HCL 5 MG TAB PO SCH (08:47)
[2019-05-17] MEDS: CALCIUM CARBONATE/VITAMIN D3 PO SCH (08:47)
[2019-05-17] MEDS: buPROPion XL 150 MG TABCR PO SCH (08:47)
[2019-05-17] MEDS: VENLAFAXINE XR 75 MG CAPCR PO SCH (08:47)
[2019-05-17] MEDS: GABAPENTIN 300 MG CAP PO SCH ×2 (08:47→20:13)
[2019-05-17] MEDS: FOLIC ACID 1 MG TAB PO SCH (08:47)
[2019-05-17] MEDS: DOCUSATE SODIUM 100 MG CAP PO SCH ×2 (08:47→20:13)
[2019-05-17 11:27] VITALS: BP 140/81
--- NOTE | 2019-05-17 11:34 | Hospitalist Progress Note ---
Subjective Progress Notes Subjective She is s/p ankle and wrist repair. She has been working with therapy. She is having a difficulty time with transfers. Patient Complains of: Cardiovascular: No: Chest Pain Respiratory: No: Shortness of Breath Physical Exam Vital Signs Date Time Temp Pulse Resp B/P (MAP) Pulse Ox O2 Delivery O2 Flow Rate FiO2 05/17/19 11:27 99.0 86 16 140/81 (100) 92 Nasal Cannula 1.0 Intake and Output 05/17/19 07:01 Intake Total 788 ml Balance 788 ml Intake Oral 560 ml IV Total 228 ml # Voids 7 General Appearance: Alert, Awake, No Acute Distress, Afebrile Neuro: No Gross deficits Cardiovascular: Regular Rate and Rhythm Respiratory: No Respiratory Distress, Clear to Auscultation GI: Soft and Non-Tender Psych: Alert & Oriented X3, Appropriate Mood & Affect Result Diagram: 05/17/1953905/17/19 05 Assessment and Plan Problems: (1) Ankle fracture, bimalleolar, closed Status: Acute Assessment & Plan: Bimalleolar fracture of the left ankle with ankle mortise joint instability. Occurred after a fall on 05/03. Surgical repair by Dr. Ribeiro 05/15. NWB to left lower extremity. PT/OT ordered. Consult TCN for rehab/ SNF options. She was placed on Lovenox for DVT prophylaxis. (2) Wrist fracture Status: Acute Assessment & Plan: Displaced comminuted fracture of distal left radius. Manag ement per orthopedics. NWB. (3) Status post cholecystectomy Status: Acute Assessment & Plan: She was transferred to [facility] for surgical management and ERCP. She had ERCP/sphincterotomy (Dr. Antoine 05/12), lap gallito with drain (Dr. Alex almaraz 05/12). It appears that she had one dose of Unasyn post-op. Her Tbil was decreasing. (4) Alcohol use disorder, severe, dependence Status: Chronic Assessment & Plan: She is through the withdrawal. She is working with Shiela Mchugh EXPERIMENTAL AIRCRAFT MECHANIC for rehab options. (5) Anxiety Status: Chronic Assessment & Plan: Continue chronic BuSpar. (6) History of depression Status: Chronic Assessment & Plan: Continue chronic Bupropion and Effexor. Exam Sepsis Risk: No Definite Risk Problem Qualifiers (1) Wrist fracture: Laterality: left KEATON OBRIEN [facility] May 17, 2019 11:34
--- NOTE | 2019-05-17 13:19 | NUR ---
Occupational Therapy Impression SBA supine to sit with HOB raised. Min A to set-up slide board. CGA slide board transfer bed<>chair with v/c's. Pt demonstrating improved adherence to NWB R) UE and L) LE. Set-up eating and grooming seated. Pt will benefit from continued OT services to improve (I) for ADLs/IADLs with adherence to NWB. Occupational Therapy Goals 1) Pt will be Min A toilet task. 2) Pt will be Min A LB dressing. Patient's Goal
--- NOTE | 2019-05-17 15:35 | NUR ---
Physical Therapy Impression Pt able to perform lateral scoot/roll from chair>bed using slideboard and Min A. Pt able to maintain NWB to R UE and L LE during transfer. Recommend long-term rehab. Physical Therapy Goals 1. Pt to perform bed mobility with Maria Del Rosario, while maintaining NWB status. 2. Pt to perform transfers with Nahomy, while maintaining NWB status Patient's Goals
[2019-05-17 16:37] VITALS: BP 123/74
[2019-05-17 18:44] VITALS: BP 131/77
[2019-05-17] MEDS: MELATONIN 3 MG TAB PO SCH (20:13)
[2019-05-17] MEDS: oxyCODONE HCL 5 MG CAP PO PRN (20:13)
[2019-05-18 04:01] VITALS: BP 101/74
[2019-05-18] MEDS: oxyCODON/ACET (*)5/325MG (CII) 1 TAB TAB PO PRN ×4 (04:07→23:37)
[2019-05-18 07:40] VITALS: BP 101/67
--- NOTE | 2019-05-18 08:33 | NUR ---
Physical Therapy Impression Patient presents in bed and is agreeable to therapy and reports she needs to go to the bathroom. Patient needed min A to go from supine to sit at EOB as she lost her balance. Patient was able to scoot EOB with cuing only and using her left UE only. SBA for bed to standing in EZ lift but mod A from toilet to awning frame maker EZ with max cuing for non weight bearing in left LE and right EU. Patient needed min A to lift left LE back into bed from sit to supine and was able to scoot up in bed using the trapeze bar and min A to hold right foot in place so it did not slide on her. Patient is trying hard to follow her non weight bearing status but needs cuing to remember. Physical Therapy Goals 1. Pt to perform bed mobility with Maria Del Rosario, while maintaining NWB status. 2. Pt to perform transfers with Nahomy, while maintaining NWB status Patient's Goals
[2019-05-18] MEDS: busPIRone HCL 5 MG TAB PO SCH (09:12)
[2019-05-18] MEDS: ENOXAPARIN 40 MG/0.4ML SYR SC SCH (09:13)
[2019-05-18] MEDS: VENLAFAXINE XR 75 MG CAPCR PO SCH (09:13)
[2019-05-18] MEDS: DOCUSATE SODIUM 100 MG CAP PO SCH ×2 (09:13→20:50)
[2019-05-18] MEDS: GABAPENTIN 300 MG CAP PO SCH ×2 (09:13→20:50)
[2019-05-18] MEDS: CALCIUM CARBONATE/VITAMIN D3 PO SCH (09:13)
[2019-05-18] MEDS: POLYETHYLENE GLYCOL 17 GM PKT PO SCH (09:13)
[2019-05-18] MEDS: buPROPion XL 150 MG TABCR PO SCH (09:13)
[2019-05-18] MEDS: FOLIC ACID 1 MG TAB PO SCH (09:14)
[2019-05-18] MEDS: traMADol 50 MG TAB PO PRN ×2 (09:22→20:51)
--- NOTE | 2019-05-18 10:46 | RADIOLOGY IMAGING REPORT ---
FACILITY: [facility] - [place], [place] PATIENT NAME: Ninfa Escalera : 1960 MR: [id number] V: [id number] EXAM DATE: ORDERING PHYSICIAN: TREY LANDIS TECHNOLOGIST: Location: [facility] [place] Patient: Ninfa Escalera : 1960 Visit/Account:[id number] Date of Sevice: 05/18/2019 CHEST SINGLE AP INDICATION: Fever COMPARISON: 05/09/2019 FINDINGS: There is stable mild enlargement of the cardiac silhouette. Atelectasis versus infiltrate is reidentified at the left lung base. Mild atelectasis is noted on the right. There is no pneumothorax or pleural effusion. IMPRESSION: 1. Persistent left lower lobe atelectasis versus infiltrate Report Dictated By: Bj Resendez at 05/18/2019 10:38 AM Report E-Signed By: Bj Resendez at 05/18/2019 10:39 AM WSN:[id number]
--- NOTE | 2019-05-18 10:52 | Hospitalist Progress Note ---
Subjective Progress Notes Subjective No new complaints per patient. RUQ pain improving s/p cholecystectomy. Nursing staff reports the patient did have an episode of urinary incontinence last night. Physical Exam Vital Signs Date Time Temp Pulse Resp B/P (MAP) Pulse Ox O2 Delivery O2 Flow Rate FiO2 05/18/19 07:40 99.0 109 101/67 (78) 94 05/18/19 04:01 20 Nasal Cannula 1.0 Intake and Output 05/18/19 07:01 Intake Total 1850 ml Balance 1850 ml Intake Oral 1850 ml # Voids 12 General Appearance: Alert, No Acute Distress, Other (Low grade fever early this am. ) Neuro: No Gross deficits Eyes: PERRLA Cardiovascular: Regular Rate and Rhythm Respiratory: Clear to Auscultation GI: Soft and Non-Tender Extremities: Warm, Perfused Psych: Appropriate Mood & Affect Result Diagram: 05/17/1953905/17/19539 Assessment and Plan Problems: (1) Low grade fever Status: Acute Assessment & Plan: The patient has developed low grade fever overnight and with this she has had mild tachycardia. Will get CXR and UA for further evaluation. Her surgical site pain in the RUQ is improving so that would be a less likely source of fever/infection. WBC was normal yesterday. Will order a CBC, CMP today as well. (2) Ankle fracture, bimalleolar, closed Status: Acute Assessment & Plan: Bimalleolar fracture of the left ankle with ankle mortise joint instability. Occurred after a fall on 05/03. Surgical repair by Dr. Ribeiro 05/15. NWB to left lower extremity. PT/OT ordered. Consult [facility] for rehab/ SNF options. She was placed on Lovenox for DVT prophylaxis. (3) Wrist fracture Status: Acute Assessment & Plan: Displaced comminuted fracture of distal left radius. Management per orthopedics. NWB. (4) Status post cholecystectomy Status: Acute Assessment & Plan: She was transferred to [facility] for surgical management and ERCP. She had ERCP/sphincterotomy (Dr. Antoine 05/12), lap gallito with drain (Dr. Barron 05/12). It appears that she had one dose of Unasyn post-op. Her Tbil was decreasing. (5) Alcohol use disorder, severe, dependence Status: Chronic Assessment & Plan: She is through the withdrawal. She is working with Shiela Mchugh MANDREL PRESS HAND for rehab options. (6) Anxiety Status: Chronic Assessment & Plan: Continue chronic BuSpar. (7) History of depression Status: Chronic Assessment & Plan: Continue chronic Bupropion and Effexor. Time Spent on Plan of Care: < 30 min Exam Sepsis Risk: No Definite Risk Problem Qualifiers (1) Wrist fracture: Laterality: left TREY LANDIS MD May 18, 2019 10:52
[2019-05-18 11:21] LABS: PLATELET COUNT, AUTOMATED 377 K/uL (150-450)
[2019-05-18] MEDS ORDERED: NS(*) 0.9% 250 ML BAG 250 ML ONE (18:27)
[2019-05-18] MEDS: AMPICILLIN/SULBACT (*) 3 GM VL 3 GM in NS(*) 0.9% 100 ML MINI-BAG 100 ML IVPB SCH ×2 (18:28→23:37)
[2019-05-18 18:37] VITALS: BP 111/65
[2019-05-18 19:23] VITALS: BP 107/58
[2019-05-18] MEDS: MELATONIN 3 MG TAB PO SCH (20:50)
[2019-05-18 23:28] VITALS: BP 107/59
[2019-05-19 04:08] VITALS: BP 100/64
[2019-05-19] MEDS: AMPICILLIN/SULBACT (*) 3 GM VL 3 GM in NS(*) 0.9% 100 ML MINI-BAG 100 ML IVPB SCH (05:53)
[2019-05-19 05:54] LABS: PLATELET COUNT, AUTOMATED 350 K/uL (150-450)
[2019-05-19] MEDS: traMADol 50 MG TAB PO PRN ×2 (06:06→16:54)
[2019-05-19 07:30] VITALS: BP 120/71
[2019-05-19] MEDS: POLYETHYLENE GLYCOL 17 GM PKT PO SCH (08:49)
[2019-05-19] MEDS: DOCUSATE SODIUM 100 MG CAP PO SCH ×2 (08:49→21:37)
[2019-05-19] MEDS: GABAPENTIN 300 MG CAP PO SCH ×2 (08:49→21:37)
[2019-05-19] MEDS: busPIRone HCL 5 MG TAB PO SCH (08:50)
[2019-05-19] MEDS: oxyCODON/ACET (*)5/325MG (CII) 1 TAB TAB PO PRN ×3 (08:50→20:26)
[2019-05-19] MEDS: CALCIUM CARBONATE/VITAMIN D3 PO SCH (08:50)
[2019-05-19] MEDS: ENOXAPARIN 40 MG/0.4ML SYR SC SCH (08:50)
[2019-05-19] MEDS: buPROPion XL 150 MG TABCR PO SCH (08:50)
[2019-05-19] MEDS: FOLIC ACID 1 MG TAB PO SCH (08:50)
[2019-05-19] MEDS: VENLAFAXINE XR 75 MG CAPCR PO SCH (08:50)
[2019-05-19] MEDS: LEVOFLOXACIN 750 MG TAB PO SCH (11:06)
--- NOTE | 2019-05-19 15:45 | Hospitalist Progress Note ---
Subjective Progress Notes Subjective DEEDEE overnight, no new concerns this am. Continue current cares. Patient Complains of: Respiratory: No: Cough, Shortness of Breath Physical Exam Vital Signs Date Time Temp Pulse Resp B/P (MAP) Pulse Ox O2 Delivery O2 Flow Rate FiO2 05/19/19 09:39 87 05/19/19 08:49 Nasal Cannula 2.0 05/19/19 07:30 99.9 93 16 120/71 (87) Intake and Output 05/19/19 07:02 Intake Total 662 ml Balance 662 ml Intake Oral 462 ml IV Total 200 ml # Voids 9 # Bowel Movements 4 General Appearance: Awake, No Acute Distress, Afebrile Neuro: No Gross deficits Cardiovascular: Normal Rhythm & Peripheral Pulses Respiratory: No Respiratory Distress Musculoskeletal: No Weakness/Pain Extremities: Soft and Non Tender, Warm, Pulses, Perfused Result Diagram: 05/19/1952305/19/19523 Assessment and Plan Problems: (1) Pneumonia Status: Acute Assessment & Plan: The patient has developed low grade fever overnight and with this she has had mild tachycardia, WBC increased. CXR shows possible atelectasis vs infiltrate. Started on empiric coverage for HAP with levofloxacin. (2) Ankle fracture, bimalleolar, closed Status: Acute Assessment & Plan: Bimalleolar fracture of the left ankle with ankle mortise joint instability. Occurred after a fall on 05/03. Surgical repair by Dr. Ribeiro 05/15. NWB to left lower extremity. PT/OT ordered. Consult [facility] for rehab/ SNF options. She was placed on Lovenox for DVT prophylaxis. (3) Wrist fracture Status: Acute Assessment & Plan: Displaced comminuted fracture of distal left radius. Management per orthopedics. NWB. (4) Status post cholecystectomy Status: Acute Assessment & Plan: She was transferred to [facility] for surgical management and ERCP. She had ERCP/sphincterotomy (Dr. Antoine 05/12), lap gallito with drain (Dr. Barron 05/12). It appears that she had one dose of Unasyn post-op. Her Tbil was decreasing. (5) Alcohol use disorder, severe, dependence Status: Chronic Assessment & Plan: She is through the withdrawal. She is working with Shiela Mchugh DRY MOP MAKER for rehab options. (6) Anxiety Status: Chronic Assessment & Plan: Continue chronic BuSpar. (7) History of depression Status: Chronic Assessment & Plan: Continue chronic Bupropion and Effexor. Exam Sepsis Risk: No Definite Risk Problem Qualifiers (1) Wrist fracture: Laterality: left SID RAJANTYREL DO May 19, 2019 15:45
[2019-05-19 16:40] VITALS: BP 108/70
[2019-05-19 18:45] VITALS: BP 118/72
[2019-05-19] MEDS: MELATONIN 3 MG TAB PO SCH (21:38)
[2019-05-20] VITALS (7 sets, daily range): BP systolic 102–116; BP diastolic 62–71
[2019-05-20] MEDS: traMADol 50 MG TAB PO PRN ×2 (02:00→23:21)
[2019-05-20 05:47] LABS: PLATELET COUNT, AUTOMATED 369 K/uL (150-450)
[2019-05-20] MEDS: oxyCODON/ACET (*)5/325MG (CII) 1 TAB TAB PO PRN ×2 (06:26→15:04)
[2019-05-20] MEDS: VENLAFAXINE XR 75 MG CAPCR PO SCH (09:48)
[2019-05-20] MEDS: ENOXAPARIN 40 MG/0.4ML SYR SC SCH (09:48)
[2019-05-20] MEDS: POLYETHYLENE GLYCOL 17 GM PKT PO SCH (09:48)
[2019-05-20] MEDS: buPROPion XL 150 MG TABCR PO SCH (09:48)
[2019-05-20] MEDS: FOLIC ACID 1 MG TAB PO SCH (09:49)
[2019-05-20] MEDS: GABAPENTIN 300 MG CAP PO SCH ×2 (09:49→21:24)
[2019-05-20] MEDS: DOCUSATE SODIUM 100 MG CAP PO SCH ×2 (09:49→21:23)
[2019-05-20] MEDS: LEVOFLOXACIN 750 MG TAB PO SCH (09:49)
[2019-05-20] MEDS: CALCIUM CARBONATE/VITAMIN D3 PO SCH (09:49)
[2019-05-20] MEDS: busPIRone HCL 5 MG TAB PO SCH (09:49)
--- NOTE | 2019-05-20 10:45 | Hospitalist Progress Note ---
Subjective Progress Notes Subjective She has no complaints this morning. She had no acute events overnight. Patient Complains of: Cardiovascular: No: Chest Pain Respiratory: No: Cough, Shortness of Breath Physical Exam Vital Signs Date Time Temp Pulse Resp B/P (MAP) Pulse Ox O2 Delivery O2 Flow Rate FiO2 05/20/19 09:38 86 05/20/19 07:29 Nasal Cannula 1.0 05/20/19 07:15 98.6 69 24 102/68 (79) Intake and Output 05/20/19 01:02 Intake Total 1100 ml Balance 1100 ml Intake Oral 1000 ml IV Total 100 ml # Voids 9 General Appearance: Alert, Awake, No Acute Distress, Afebrile Neuro: No Gross deficits Cardiovascular: Regular Rate and Rhythm Respiratory: No Respiratory Distress, Other (rhonchi noted to left lower lobe) GI: Soft and Non-Tender Extremities: Warm, Perfused; No Edema Psych: Alert & Oriented X3, Appropriate Mood & Affect Result Diagram: 05/20/1950905/20/19509 Assessment and Plan Problems: (1) Pneumonia Status: Acute Assessment & Plan: The patient has developed low grade fever and with this she has had mild tachycardia, WBC increased. CXR shows possible atelectasis vs infiltrate. Started on empiric coverage for HAP with levofloxacin. Will switch to oral Levaquin today. (2) Ankle fracture, bimalleolar, closed Status: Acute Assessment & Plan: Bimalleolar fracture of the left ankle with ankle mortise joint instability. Occurred after a fall on 05/03. Surgical repair by Dr. Ribeiro 05/15. NWB to left lower extremity. PT/OT ordered. Consult [facility] for rehab/ SNF o ptions. She was placed on Lovenox for DVT prophylaxis. (3) Wrist fracture Status: Acute Assessment & Plan: Displaced comminuted fracture of distal left radius. Management per orthopedics. NWB. (4) Status post cholecystectomy Status: Acute Assessment & Plan: She was transferred to [facility] for surgical management and ERCP. She had ERCP/sphincterotomy (Dr. Antoine 05/12), lap gallito with drain (Dr. Barron 05/12). It appears that she had one dose of Unasyn post-op. Her Tbil was decreasing. (5) Alcohol use disorder, severe, dependence Status: Chronic Assessment & Plan: She is through the withdrawal. She is working with Shiela Mchugh BOARD CERTIFIED FAMILY PHYSICIAN for rehab options. (6) Anxiety Status: Chronic Assessment & Plan: Continue chronic BuSpar. (7) History of depression Status: Chronic Assessment & Plan: Continue chronic Bupropion and Effexor. Exam Sepsis Risk: No Definite Risk Problem Qualifiers (1) Wrist fracture: Laterality: left KEATON OBRIEN [employer] WORK[employer] SUPERVIS[employer] May 20, 2019 10:45
--- NOTE | 2019-05-20 15:04 | NUR ---
Occupational Therapy Impression UB ther ex with left UE only. Set-up grooming and oral care upright in bed. Pt declined to get OOB at this time after returning prior with nursing. Recommend long-term rehab. Occupational Therapy Goals 1) Pt will be Min A toilet task. 2) Pt will be Min A LB dressing. Patient's Goal
--- NOTE | 2019-05-20 15:36 | NUR ---
PHYSICAL THERAPY INFORMATION TRANSFER SHEET BED MOBILITY: Standby Assistance TRANSFERS: CGA GAIT: ' with and Weightbearing Status: NWB L LE and NWB R UE STAIRS: with . EXERCISES: Verbalizes Needs: Yes Understands Directions Yes Cooperative: Yes Family Teaching: No Physical Therapy Comment:
--- NOTE | 2019-05-20 15:36 | NUR ---
This Physical Therapist or Stock Driver was present for the entire physical therapy session directing the services, making the skilled judgement, and was not engaged in treating another patient or doing another task at the same time as the treatment session. Addendum: 05/20/19 at 1536 by KEMAL VILLANUEVA PT Amended: Links added.
--- NOTE | 2019-05-20 15:36 | NUR ---
Physical Therapy Impression Pt demonstrating signficantly improved transfer ability. Pt performed supine to sit transfer with SBA. Pt performed sliding board transfer, from EOB to reclining chair, with CGAx1. Pt demonstrating improved ability to maintain NWB status. Pt left sitting in reclining chair with all needs met, call light in reach,and O2. Pt would benefit from further skilled PT care to continue to work on slide board transfers. Rec custodial rehab. Physical Therapy Goals 1. Pt to perform bed mobility with Maria Del Rosario, while maintaining NWB status. 2. Pt to perform transfers with Nahomy, while maintaining NWB status Patient's Goals
[2019-05-20] MEDS: MELATONIN 3 MG TAB PO SCH (21:24)
[2019-05-21 03:26] VITALS: BP 97/55
[2019-05-21 07:44] VITALS: BP 107/62
--- NOTE | 2019-05-21 08:26 | NUR ---
OCCUPATIONAL THERAPY Dressing Assistance: Max A LB dressing Dressing Aid Required: None, Cues to maintain NWB Bathing Assistance: N/T with OT Home Assessment: Not Completed Feeding Assistance: Independent Feeding Specialized Equipment: None Toilet Use: CGA slide board transfers with Min A to set-up. Verbalizes Needs: Yes Understands Precautions: Yes, cues to maintain precautions. NWB Right Upper Extremity. NWB Left Lower Extremity. Cooperative: Yes Family Teaching: No Occupational Therapy Comment:
[2019-05-21] MEDS: busPIRone HCL 5 MG TAB PO SCH (08:31)
[2019-05-21] MEDS: GABAPENTIN 300 MG CAP PO SCH (08:31)
[2019-05-21] MEDS: POLYETHYLENE GLYCOL 17 GM PKT PO SCH (08:31)
[2019-05-21] MEDS: FOLIC ACID 1 MG TAB PO SCH (08:31)
[2019-05-21] MEDS: DOCUSATE SODIUM 100 MG CAP PO SCH (08:31)
[2019-05-21] MEDS: buPROPion XL 150 MG TABCR PO SCH (08:31)
[2019-05-21] MEDS: CALCIUM CARBONATE/VITAMIN D3 PO SCH (08:31)
[2019-05-21] MEDS: VENLAFAXINE XR 75 MG CAPCR PO SCH (08:32)
[2019-05-21] MEDS: ENOXAPARIN 40 MG/0.4ML SYR SC SCH (08:32)
[2019-05-21] MEDS: LEVOFLOXACIN 750 MG TAB PO SCH (10:04)
[2019-05-21] MEDS ORDERED: LEVO750T27 PO (10:38)
[2019-05-21] MEDS ORDERED: DOCU-202 PO (10:38)
[2019-05-21] MEDS ORDERED: PER PO (10:38)
[2019-05-21] MEDS ORDERED: TRAM-420 PO (10:38)
--- NOTE | 2019-05-21 10:51 | Hospitalist Depart ---
Discharge Summary Reason for Hosp/Final Diag: (1) Pneumonia Status: Acute Hospital Course & Plan: The patient developed low grade fever and with this she had mild tachycardia, WBC increased. CXR shows possible atelectasis vs infiltrate. Started on empiric coverage for HAP with levofloxacin. She should continue antibiotics for two additional days. (2) Ankle fracture, bimalleolar, closed Status: Acute Hospital Course & Plan: Bimalleolar fracture of the left ankle with ankle mortise joint instability. Occurred after a fall on 05/03. Surgical repair by Dr. Ribeiro 05/15. NWB to left lower extremity. PT/OT ordered. She was placed on Lovenox for DVT prophylaxis. She will be transferred to [facility] for continued rehab. (3) Wrist fracture Status: Acute Hospital Course & Plan: Displaced comminuted fracture of distal left radius. Management per orthopedics. NWB. (4) Status post cholecystectomy Status: Acute Hospital Course & Plan: She was transferred to [facility] for surgical management and ERCP. She had ERCP/sphincterotomy (Dr. Antoine 05/12), lap gallito with drain (Dr. Barron 05/12). It appears that she had one dose of Unasyn post-op. Her Tbil was decreasing. (5) Alcohol use disorder, severe, dependence Status: Chronic Hospital Course & Plan: She is through the withdrawal. She was working with Shiela Mchugh GALVANIZER for rehab options after rehab for extremity fractures. (6) Anxiety Status: Chronic Hospital Course & Plan: Continue chronic BuSpar. (7) History of depression Status: Chronic Hospital Course & Plan: Continue chronic Bupropion and Effexor. Departure Latest Vital Signs Vital Signs 05/21/19 05/21/19 07:44 09:27 Temp 99.3 Pulse 75 Resp 16 B/P (MAP) 107/62 (77) Pulse Ox 93 O2 Delivery Nasal Cannula O2 Flow Rate 1.0 Weight (Pounds): 175 Weight (Ounces): 5.0 Result Diagram: 05/20/1950905/20/19509 Condition: Improved Discharge: Skilled Nursing PT/OT Follow Up For: PT For Strengthening, OT For ADL's, PT Evaluation and Treat, OT Evaluation and Treat Home Health PLYCOR OPERATOR Follow Up For: ADL Assistance Discharge Instructions Home Meds Active Scripts Docusate Sodium (DOCUSATE SODIUM) 100 Mg Capsule, 100 MG PO BID, #60 CAPSULE Prov:KEATON OBRIEN [facility] 05/21/19 Oxycodone/Acetaminophen (OXYCODONE/ACETAMINOPHEN 5MG/325 MG) 5 Mg/325 Mg Tab, 1- 2 TAB PO Q4H PRN for BREAKTHROUGH PAIN, #20 TAB Prov:KEATON OBRIEN [facility] 05/21/19 Tramadol Hcl (TRAMADOL HCL) 50 Mg Tablet, 100 MG PO Q8H PRN for PAIN, #20 TAB Prov:KEATON OBRIEN [facility] 05/21/19 Levofloxacin 750 Mg Tab (LEVOFLOXACIN 750 MG TAB) 750 Mg Tablet, 750 MG PO QDAY@10, #2 TAB Prov:KEATON OBRIEN [facility] 05/21/19 Thiamine Hcl (VITAMIN B-1) 100 Mg Tablet, 100 MG PO QDAY, #1 TAB Prov:ERIC ROD DO 05/10/19 Folic Acid (FOLIC ACID) 1 Mg Tablet, 1 MG PO QDAY, #1 TAB Prov:ERIC ROD DO 05/10/19 Reported Medications Fluticasone Prop 44 Mcg (FLOVENT HFA 44 MCG) 44 Mcg Inha, 44 MCG INH, INH 02/04/19 Bupropion Hcl (BUPROPION HCL SR) 150 Mg Tablet.er, 150 MG PO 02/04/19 Melatonin (Melatonin) 1 Mg Tablet.er, 10 PO HS 12/21/17 Gabapentin (GABAPENTIN) 300 Mg Capsule, 300 MG PO BID, CAPSULE 12/21/17 Buspirone Hcl (BUSPIRONE HCL) 15 Mg Tablet, 15 MG PO QAM, pt states only taking 1 QD 12/21/17 Venlafaxine Hcl (EFFEXOR XR) 75 Mg Cap.er.24h, 75 MG PO QAM 12/21/17 Discontinued Scripts Piperacillin Sodium/Tazobactam (ZOSYN 3.375 GRAM VIAL) 3.375 Gm Vial, 3.375 GM IV Q6H, #1 VIAL Prov:ERIC ROD DO 05/10/19 Morphine Sulfate (Morphine Sulfate) 4 Mg/Ml Vial, 1-4 MG IVP Q4H PRN for PAIN, #1 VIAL Prov:ERIC ROD DO 05/10/19 Diet: Regular Copies to: SHIELA MCHUGH ASH COLLECTOR ; Venous Thromboembolism Antithrombotics Is Pt On Any Antithrombotics?: No Problem Qualifiers (1) Wrist fracture: Laterality: left KEATON OBRIEN [employer]SH COLLECTOR May 21, 2019 10:50
== END 2019-05-21 12:30 | DRG 492 ==
LOC: MED 17:14
PROVIDERS: ADMIT Internal Medicine; ATTEND Internal Medicine
PROC: 0QSK04Z Reposition Left Fibula with Internal Fixation Device, Open Approach (ICD-10-PCS; principal; 2019-05-15 19:20)
PROC: 0QSH04Z Reposition Left Tibia with Internal Fixation Device, Open Approach (ICD-10-PCS; 2019-05-15 19:20)
PROC: 0PSH04Z Reposition Right Radius with Internal Fixation Device, Open Approach (ICD-10-PCS; 2019-05-15 19:20)
DX: S52.571A Other intraarticular fracture of lower end of right radius, initial encounter for closed fracture (principal); J18.9 Pneumonia, unspecified organism; S82.842A Displaced bimalleolar fracture of left lower leg, initial encounter for closed fracture; F41.8 Other specified anxiety disorders; F17.210 Nicotine dependence, cigarettes, uncomplicated; F10.20 Alcohol dependence, uncomplicated; M85.862 Other specified disorders of bone density and structure, left lower leg; R00.0 Tachycardia, unspecified; Z90.49 Acquired absence of other specified parts of digestive tract; Z90.5 Acquired absence of kidney; W18.30XD Fall on same level, unspecified, subsequent encounter
CPT/HCPCS: 36415; 71045; 76000; 76942; 81001; 82040; 82247; 82310; 82374; 82435; 82565; 82947; 83735; 84075; 84132; 84155; 84295; 84450; 84460; 84520; 85025; 85610; 87088; 97161; 97165; A4565; C1713; J0295; J0690; J1100; J1650; J2001; J2250; J2270; J2405; J2704; J2765; J3010; J3490; J7030; J7050

== ENCOUNTER 2019-07-08 16:17 | Emergency (ER) | payer BC ==
[2019-05-15 12:12] VITALS: BMI 29.1
[~2019-07-08 16:17] MED LIST changes: -VENL150C61 PO
[2019-07-08 16:18] VITALS: BP 126/72
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
[2019-07-08] MEDS ORDERED: VENL150C61 PO (16:22)
== END 2019-07-08 17:00 ==
LOC: EDUNIT# 16:17 → ER 16:23
DX: F10.129 Alcohol abuse with intoxication, unspecified (principal); I10 Essential (primary) hypertension; K21.9 Gastro-esophageal reflux disease without esophagitis; F32.9 Major depressive disorder, single episode, unspecified; F41.9 Anxiety disorder, unspecified; F17.210 Nicotine dependence, cigarettes, uncomplicated; Z79.899 Other long term (current) drug therapy
CPT/HCPCS: 99001; 99281

== ENCOUNTER → 2019-07-08 | Outpatient (CLI) | payer BC ==
[2019-05-15 12:12] VITALS: BMI 29.1
[~2019-07-08] MED LIST changes: +DOCU-202 PO; +LEVO750T27 PO; +TRAM-420 PO; +VENL150C61 PO
== END ==
LOC: AMB 15:30
PROVIDERS: ATTEND Nurse Practitioner
DX: F10.120 Alcohol abuse with intoxication, uncomplicated (principal)
CPT/HCPCS: A0425; A0429